=== PATIENT | male | born 1955 | race Caucasian/White ===

== ENCOUNTER 2016-06-25 00:52 | Inpatient (IN) | payer BC, MEDICARE, OTHER ==
[2016-06-25 02:12] VITALS: BMI 22.9
--- NOTE | 2016-06-25 02:28 | ED PDOC ---
Arrival/HPI - General Chief Complaint: Psychiatric Evaluation Time Seen by Provider: 06/25/16 01:53 Historian: Patient - History of Present Illness Narrative History of Present Illness (Text): 06/25/16 02:28 Eber Lo is a 61 year old male, whose past medical history includes bipolar disorder, depression, alcohol abuse, and substance abuse, who presents to the ED complaining of depression. Patient states he has been feeling depressed recently and expressing suicidal ideation. Patient states he began mixing different medication with alcohol yesterday morning. Patient homicidal ideation, denies any fever, chills, chest pain, shortness of breath, nausea, vomiting, diarrhea, urinary symptoms, back pain, neck pain, headache, dizziness , or any other complaints. Time/Duration: Other (yesterday) Symptom Onset: Gradual Symptom Course: Unchanged Activities at Onset: Rest, Light Context: Home Past Medical History - Provider Review Nursing Documentation Reviewed: Yes - Infectious Disease Hx of Infectious Diseases: None - Tetanus Immunization Tetanus Immunization: Unknown - Cardiac Hx Cardiac Disorders: No Hx Hypertension: No - Pulmonary Hx Chronic Obstructive Pulmonary Disease (COPD): Yes - Neurological Hx Neurological Disorder: No Hx Seizures: No - HEENT Hx HEENT Disorder: No - Renal Hx Renal Disorder: No - Endocrine/Metabolic Hx Endocrine Disorders: No - Hematological/Oncological Hx Blood Disorders: Yes Hx Cancer: Yes (liver) - Integumentary Hx Dermatological Disorder: No - Musculoskeletal/Rheumatological Hx Arthritis: Yes Hx Fractures: Yes Other/Comment: Claimed of multiple surgery mostly orthopedic. - Gastrointestinal Hx Gastrointestinal Disorders: Yes Hx Liver Failure: Yes (liver cancer) - Genitourinary/Gynecological Hx Genitourinary Disorders: No Hx Sexually Transmitted Diseases: No - Psychiatric Hx Depression: Yes Hx Substance Use: Yes (marijuana) - Past Surgical History Past Surgical History: Unable to Obtain - Surgical History Hx Appendectomy: Yes Hx Orthopedic Surgery: Yes (right knee) Other/Comment: nose/face/kidney stones - Anesthesia Hx Anesthesia: Yes Hx Anesthesia Reactions: No Hx Malignant Hyperthermia: No - Suicidal Assessment Feels Threatened In Home Enviroment: No Family/Social History - Physician Review Nursing Documentation Reviewed: Yes Family/Social History: No Known Family HX Smoking Status: Current Some Days Smoker Hx Alcohol Use: Yes (vodka/beer) Frequency of alcohol use: Daily Hx Substance Use: Yes (marijuana) Substance used: heroine Hx Substance Use Treatment: Yes ([facility] 29 days 27 years ago) Allergies/Home Meds Allergies/Adverse Reactions: Allergies banana Allergy (Verified 06/25/16 02:10) ANAPHYLAXIS tea tree Allergy (Verified 06/25/16 02:10) ANAPHYLAXIS Review of Systems - Physician Review All systems were reviewed & negative as marked: Yes - Review of Systems Constitutional: Normal. absent: Fevers Eyes: Normal ENT: Normal Respiratory: Normal. absent: SOB, Cough Cardiovascular: Normal. absent: Chest Pain Gastrointestinal: Normal. absent: Abdominal Pain, Diarrhea, Nausea, Vomiting Genitourinary Male: Normal. absent: Dysuria, Frequency, Hematuria, Urinary Output Changes Musculoskeletal: Normal. absent: Back Pain, Neck Pain Skin: Normal. absent: Rash Neurological: Normal. absent: Headache, Dizziness Endocrine: Normal Hemo/Lymphatic: Normal Psychiatric: Depression, Suicidal Ideation Physical Exam Vital Signs Reviewed: Yes Vital Signs Temp Pulse Resp BP Pulse Ox 06/25/16 06:18 98.7 F 102 H 16 105/65 95 06/25/16 02:11 98.2 F Temperature: Afebrile Blood Pressure: Normal Pulse: Regular Respiratory Rate: Normal Appearance: Positive for: Well-Appearing, Non-Toxic, Comfortable Pain Distress: None Mental Status: Positive for: Alert and Oriented X 3 - Systems Exam Head: Present: Atraumatic, Normocephalic Pupils: Present: PERRL Extroacular Muscles: Present: EOMI Conjunctiva: Present: Normal Mouth: Present: Moist Mucous Membranes Neck: Present: Normal Range of Motion Respiratory/Chest: Present: Clear to Auscultation, Good Air Exchange. No: Respiratory Distress, Accessory Muscle Use Cardiovascular: Present: Regular Rate and Rhythm, Normal S1, S2. No: Murmurs Abdomen: Present: Normal Bowel Sounds. No: Tenderness, Distention, Peritoneal Signs Back: Present: Normal Inspection Upper Extremity: Present: Normal Inspection. No: Cyanosis, Edema Lower Extremity: Present: Normal Inspection. No: Edema Neurological: Present: GCS=15, CN II-XII Intact, Speech Normal Skin: Present: Warm, Dry, Normal Color. No: Rashes Psychiatric: Present: Alert, Oriented x 3, Normal Insight, Normal Concentration Medical Decision Making ED Course and Treatment: 06/25/16 02:28 Impression: 61 year old male complaining of depression and suicidal ideation. Plan: -- EKG -- Chest X-ray -- Labs, alcohol level -- Urinalysis, urine drug screen -- Reassess and disposition Prior Visits: Notes and results from previous visits were reviewed. Progress Notes: Reviewed EKG, NSR at [address]-segment elevations or depressions, no T- wave inversions, normal intervals. 06/25/16 03:39 Reviewed radiology, Chest X-ray shows no active disease. Reviewed labs, alcohol level 116, tox screen positive for benzodiazepines and cannabinoids. Pt medically cleared for PES evaluation. 06/25/16 05:38 Pt seen and evaluated by PES screener. States pt can be admitted to [facility] under Dr. Howe's service for depression. Pt is agreeable with plan. - Lab Interpretations Lab Results: 06/25/16 02:40 06/25/16 02:40 Lab Results 06/25/16 03:50: Urine Color Yellow, Urine Appearance Clear, Urine pH 6.0, Ur Specific [place] 1.020, Urine Protein Negative, Urine Glucose (UA) Negative, Urine Ketones Negative, Urine Blood Negative, Urine Nitrate Negative, Urine Bilirubin Negative, Urine Urobilinogen 0.2, Ur Leukocyte Esterase Negative, Urine Opiates Screen Negative, Urine Methadone Screen Negative, Ur Barbiturates Screen Negative, Ur Phencyclidine Scrn Negative, Ur Amphetamines Screen Negative , U Benzodiazepines Scrn Positive H, U Oth Cocaine Metabols Negative, U Cannabinoids Screen Positive H 06/25/16 02:40: WBC 7.3, RBC 5.05, Hgb 16.1, Hct 46.3, MCV 91.7, MCH 31.9, MCHC 34.8, RDW 14.9 H, Plt Count 200, MPV 9.4, Gran % 51.8, Lymph % (Auto) 31.7, [place] % (Auto) 13.5 H, Eos % (Auto) 2.7, Baso % (Auto) 0.3, Gran # 3.78, Lymph # 2.3, [place] # 1.0 H, Eos # 0.2, Baso # 0.02, Sodium 140, Potassium 4.1, Chloride 105, Carbon Dioxide 23, Anion Gap 16, BUN 16, Creatinine 0.8, Est GFR ( Amer) > 60, Est GFR (Non-Af Amer) > 60, Random Glucose 91, Calcium 8.9, Total Bilirubin 0.6, AST 52, ALT 44, Alkaline Phosphatase 70, Total Protein 7.2, Albumin 3.9, Globulin 3.2, Albumin/Globulin Ratio 1.2, Salicylates < 1 L, Acetaminophen < 10.0 L, Alcohol, Quantitative 115 H I have reviewed the lab results: Yes - RAD Interpretation Radiology Orders: 06/25/16 02:26 CHEST PORTABLE [RAD] Stat Swimming Pool Cleaner: ED Physician - EKG Interpretation Interpreted by ED Physician: Yes Type: 12 lead EKG - Medication Orders Current Medication Orders: Acetaminophen (Tylenol 325mg Tab) 650 mg PO Q4 PRN PRN Reason: Pain Last Admin: 06/25/16 16:02 Dose: 650 MG MAR Pain/Vitals Document 06/25/16 16:02 CV (Rec: 06/25/16 16:04 CV [id number]) Pain Reassessment Is This A Pain ReAssessment? No Sleep Is patient sleeping during reassessment? No Presence of Pain Presence of Pain Yes Pain Scale Used Pain Scale Used Numeric Location Pain Location Body [employer]dn[employer] Description Dull Intensity 3 Aggravating Factors None Vitals Temperature (97.6 F-99.6 F) 97.6 F Temperature Source Oral Re-Assess: MAR Pain/Vitals Document 06/25/16 17:02 CV (Rec: 06/25/16 18:21 CV [id number]) Pain Reassessment Is This A Pain ReAssessment? Yes Sleep Is patient sleeping during reassessment? Yes Al Hydrox/Mg Hydrox/Simethicone (Maalox Plus 30 Ml) 30 ml PO DAILY PRN PRN Reason: Upset Stomach Divalproex Sodium (Depakote Dr (*Bid*)) 500 mg PO [facility] FRANCI PRN Reason: Protocol Last Admin: 06/25/16 22:05 Dose: 500 MG Behavioural Document 06/25/16 22:05 [facility] (Rec: 06/25/16 22:05 [id number] Maintenance Maintenance Dose Yes Famotidine (Pepcid) 40 mg PO HS [facility] Last Admin: 06/25/16 22:05 Dose: 40 MG Folic Acid (Folic Acid) 1 mg PO DAILY [facility] Last Admin: 06/25/16 12:49 Dose: 1 MG Lorazepam (Ativan) 2 mg PO TID PRN; Protocol PRN Reason: Alcohol Withdrawal Lorazepam (Ativan) 2 mg PO QID FRANCI PRN Reason: Protocol Last Admin: 06/25/16 22:05 Dose: 2 MG Behavioural Document 06/25/16 22:05 [facility] (Rec: 06/25/16 22:05 [id number] Maintenance Maintenance Dose Yes Magnesium Hydroxide (Milk Of Magnesia) 30 ml PO DAILY PRN PRN Reason: Constipation Multivitamins (Thera Tab) 1 tab PO DAILY [facility] Last Admin: 06/25/16 12:49 Dose: 1 TAB Quetiapine Fumarate (Seroquel) 100 mg PO HS [facility] PRN Reason: Protocol Last Admin: 06/25/16 22:05 Dose: 100 MG Behavioural Document 06/25/16 22:05 [facility] (Rec: 06/25/16 22:06 [id number] Maintenance Maintenance Dose Yes Thiamine HCl (Vitamin B1 Tab) 100 mg PO DAILY [facility] Last Admin: 06/25/16 12:49 Dose: 100 MG Trazodone HCl (Desyrel) 100 mg PO HS [facility] Last Admin: 06/25/16 22:05 Dose: 100 MG - Garryibe Statement The provider has reviewed the documentation as recorded by the Aleksandra Olmedo Provider Attestation: All medical record entries made by the Aleksandra were at my direction and personally dictated by me. I have reviewed the chart and agree that the record accurately reflects my personal performance of the history, physical exam, medical decision making, and the department course for this patient. I have also personally directed, reviewed, and agree with the discharge instructions and disposition. Disposition/Present on Arrival - Present on Arrival Any Indicators Present on Arrival: No History of DVT/PE: No History of Uncontrolled Diabetes: No Urinary Catheter: No History of Decub. Ulcer: No History Surgical Site Infection Following: None - Disposition Have Diagnosis and Disposition been Completed?: Yes Diagnosis: Depression Disposition: HOSPITALIZED Disposition Time: 06:00 Condition: FAIR
[2016-06-25 02:52] LABS: ADD MANUAL DIFF? NO
[2016-06-25 02:59] LABS: BASO # 0.02 K/mm3 (0.0-2.0); BASO % 0.3 % (0.0-3.0); EOS # 0.2 (0.0-0.7); EOS % 2.7 % (1.5-5.0); GRAN # 3.78 (1.4-6.5); GRAN % 51.8 % (50.0-68.0); HEMATOCRIT 46.3 % (42.0-52.0); LYMPH # 2.3 (1.2-3.4); LYMPH % 31.7 % (22.0-35.0); MEAN CELL VOLUME 91.7 fL (80.0-105.0); MEAN CORPUSCULAR HEMOGLOBIN 31.9 pg (25.0-35.0); MEAN CORPUSCULAR HGB CONC 34.8 g/dl (31.0-37.0); MEAN PLATELET VOLUME 9.4 fl (7.0-11.0); MONO % 13.5 % (1.0-6.0); PLATELET COUNT 200 10^3/uL (120.0-450.0); RED CELL DISTRIBUTION WIDTH 14.9 % (11.5-14.5); WHITE BLOOD COUNT 7.3 10^3/ul (4.5-11.0)
[2016-06-25 03:06] LABS: ALB/GLOB RATIO 1.2 (1.1-1.8); ALKALINE PHOSPHATASE 70 U/L (38-133); ALT/SGPT 44 U/L (7-56); AST/SGOT 52 U/L (15-59); BILIRUBIN,TOTAL 0.6 mg/dL (0.2-1.3); BLOOD UREA NITROGEN 16 mg/dL (7-21); CALCIUM 8.9 mg/dL (8.4-10.5); CARBON DIOXIDE 23 mmol/L (21-33); CHLORIDE 105 mmol/L (95-110); GFR AFRICAN-AMERICAN > 60; GLUCOSE,RANDOM 91 mg/dL (70-110); POTASSIUM 4.1 mmol/L (3.6-5.0); SODIUM 140 mmol/L (132-148); TOTAL PROTEIN 7.2 g/dL (5.8-8.3)
[2016-06-25 04:06] LABS: URINE BILIRUBIN NEGATIVE (NEGATIVE); URINE BLOOD NEGATIVE (NEGATIVE); URINE GLUCOSE (UA) NEGATIVE (NEGATIVE); URINE KETONE NEGATIVE (NEGATIVE); URINE LEUKOCYTE ESTERASE NEGATIVE Leu/uL (NEGATIVE); URINE PROTEIN NEGATIVE mg/dL (<30 mg/dL); URINE UROBILINOGEN 0.2 E.U./dL (<1 E.U./dL)
[2016-06-25 04:25] LABS: URINE APPEARANCE CLEAR (CLEAR); URINE COLOR YELLOW (YELLOW)
[2016-06-25 06:19] VITALS: O2SAT 95
[2016-06-25] MEDS ORDERED: Magnesium Hydroxide Susp 30 ml UD PO PRN (08:29)
[2016-06-25] MEDS ORDERED: Alum-Mag Hydrox-Simethicone Susp (30 mL) PO PRN (08:29)
--- NOTE | 2016-06-25 09:10 | RAD ---
HISTORY: pes COMPARISON: 09/25/2015 FINDINGS: LUNGS: No active pulmonary disease. PLEURA: No significant pleural effusion identified, no pneumothorax apparent. CARDIOVASCULAR: Normal. OSSEOUS STRUCTURES: No significant abnormalities. VISUALIZED UPPER ABDOMEN: Normal. OTHER FINDINGS: None. IMPRESSION: No active disease.
[2016-06-25] MEDS: Multivitamin Therapeutic Tab PO SCH (12:49)
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
[2016-06-25 18:35] LABS: CHOLESTEROL 159 mg/dL (130-200)
--- NOTE | 2016-06-25 19:02 | CARD ---
APPROVED REPORT EKG Measurement Heart [id number] <Conclusion> Normal sinus rhythm Normal ECG
[2016-06-25] MEDS: Divalproex 250 mg DR (BID formulation) PO SCH (22:05)
--- NOTE | 2016-06-26 06:02 | CON ---
DATE: 06/25/2016 CHIEF COMPLAINT: COPD, joint pain. HISTORY OF PRESENT ILLNESS: The patient is a 61-year-old male with past medical history of COPD, bipolar depression, alcohol abuse, substance abuse, came to the Emergency Room complaining about depression. The patient stated that he has been feeling depressed recently and expressing suicidal ideation. The patient states he began mixing a different medication with alcohol yesterday morning. The patient does not have homicidal ideation and denies any fever, chills, chest pain, shortness of breath, nausea, vomiting, or diarrhea. No urinary symptoms, no back pain, no neck pain. No headache, no dizziness. PAST MEDICAL HISTORY: COPD, history of liver cancer, arthritis, history of multiple fractures and orthopedic surgeries, depression, using marijuana, history of appendectomy, history of kidney stones. FAMILY HISTORY: Father and mother, noncontributory. HABITS: Current smoking; alcohol yes, vodka/beer; substance abuse, marijuana and heroin. [place] 29 days 27 years ago. ALLERGIES: THE PATIENT IS ALLERGIC TO BANANAS AND TEA TREE PER PATIENT. MEDICATIONS: List reviewed by me. REVIEW OF SYSTEMS: The patient is seen and examined at the bedside, sitting on the chair, looks comfortable. No nausea, vomiting, or diarrhea. No hematuria or hematochezia. No swelling of the leg. No chest pain, no palpitation, no headache, no dizziness, no fever, no chills. Complaining about just different joint pains. No coughing. PHYSICAL EXAMINATION: VITAL SIGNS: Temperature 97.6, pulse 102, blood pressure 105/65, respiratory rate 16. HEENT: Head normocephalic, atraumatic. Eyes: PERRLA. Extraocular muscles intact. Conjunctivae pink. Eyelids unremarkable. Nose patent. NECK: Supple. No carotid bruit, JVD or thyromegaly. CHEST: Bilaterally symmetrical. HEART: S1, S2 positive. LUNGS: Clear to auscultation. ABDOMEN: Soft. Bowel sounds present. No organomegaly. EXTREMITIES: No edema, no cyanosis. NEUROLOGIC: The patient is awake, alert, moving all 4 extremities. No focal deficit. LABORATORY DATA: White blood cells 7.6, hemoglobin 16.1, hematocrit 46.3, platelets 200. Sodium 140, potassium 4.1, BUN 15, creatinine 0.8. Urine is okay. Toxicology: Benzodiazepine positive, cannabinoid positive. Alcohol level high at 115. ASSESSMENT AND PLAN: The patient is a 61-year-old male with a positive drug screen with benzodiazepine and cannabinoids, history of ethanol abuse, history of chronic obstructive pulmonary disease, history of liver cancer as per the patient, different fractures, arthritis, depression and using marijuana, history of kidney stones. According to the patient, he was not feeling very well while using , Percocet, drinking 7 pints of vodka daily. "I had bad days and now I only have 11 well friends. I need to have rest. I am not able to sleep. I am here to get help." Psychiatrist is on the case. Appreciate psychiatric input and appreciate you to consult. We will follow up. Cristina Ellison MD cc: [id number] TT: 06/26/2016 06:01:50 Confirmation # [id number] Dictation # [id number]
[2016-06-26] MEDS: Multivitamin Therapeutic Tab PO SCH (08:11)
[2016-06-26 08:25] LABS: CHOLESTEROL 148 mg/dL (130-200)
[2016-06-26 08:47] LABS: FREE T4 1.03 ng/dL (0.78-2.19)
[2016-06-26 09:01] LABS: THYROID STIMULATING HORMONE 0.46 mIU/mL (0.46-4.68)
[2016-06-26] MEDS: Divalproex 250 mg DR (BID formulation) PO SCH ×2 (09:37→22:27)
[2016-06-26 10:07] VITALS: RESP 20
--- NOTE | 2016-06-26 13:24 | CT ---
PROCEDURE: CT Abdomen and Pelvis without intravenous contrast HISTORY: r/o stones COMPARISON: 11/07/2014 TECHNIQUE: Technique. Contrast Dose: Radiation dose: Total exam DLP = 775 mGy-cm. This CT exam was performed using one or more of the following dose reduction techniques: Automated exposure control, adjustment of the mA and/or kV according to patient size, and/or use of iterative reconstruction technique. FINDINGS: LOWER THORAX: Unremarkable. LIVER: Unremarkable. No gross lesion or ductal dilatation. GALLBLADDER AND BILE DUCTS: Unremarkable. PANCREAS: Unremarkable. No gross lesion or ductal dilatation. SPLEEN: Unremarkable. ADRENALS: Unremarkable. No mass. KIDNEYS AND URETERS: There is a right ureteral stent. There is a moderate amount of hydronephrosis. There are no stones seen along side the stent. VASCULATURE: Unremarkable. No aortic aneurysm. BOWEL: Unremarkable. No obstruction. No gross mural thickening. APPENDIX: Unremarkable. Normal appendix. PERITONEUM: Unremarkable. No free fluid. No free air. LYMPH NODES: Unremarkable. No enlarged lymph nodes. BLADDER: Unremarkable. REPRODUCTIVE: Unremarkable. BONES: No acute fracture. OTHER FINDINGS: None. IMPRESSION: Right-sided ureteral stent. Moderate chronic right-sided hydronephrosis. No evidence of stones
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
--- NOTE | 2016-06-26 18:42 | US ---
PROCEDURE: Urinary bladder ultrasound HISTORY: retention COMPARISON: June 26, 2016. CT abdomen and pelvis. TECHNIQUE: Standard protocol for this study/examination. FINDINGS: Urinary bladder assessment: Prevoid volume: 109.8 ml Postvoid residual: 6.4 ml Intrinsic, mural, perivesical abnormalities: Pigtail catheter core LV in the bladder in satisfactory position confirming findings on recent CT scan. Ureteral jets: Only documented left side. Right ureteral jet not visualized. IMPRESSION: Confirmation of satisfactory position of the distal aspect of the stent catheter in the urinary bladder. Additional information provided above.
--- NOTE | 2016-06-26 19:52 | CON ---
DATE: 06/26/2016 The patient complains of frequency, straining to void. He is currently on the psychiatric appiah, admi tted for history of depression. He told me that he was operated on for kidney stones at [facility] several years ago. He currently has no flank pain, no fever. He was admitted through the ER complaining of the history of depression, alcohol abuse. PAST MEDICAL HISTORY: Significant for, according to his chart, a history of liver cancer. He has hwang d orthopedic surgeries. SOCIAL HISTORY: He uses marijuana. PAST SURGICAL HISTORY: He has had an appendectomy, right knee. He has had surgery on his nose, and surgery for kidney stones. ALLERGIES: HE HAS AN ALLERGY TO BANANAS AND TEA. FAMILY HISTORY: Noncontributory. REVIEW OF SYSTEMS: Currently no symptoms referable to the head, eyes, ears, nose or throat. No card iac or respiratory symptoms. No gastrointestinal symptoms. Psychiatric symptoms: History of depres timoteo. VITAL SIGNS: Show him to be afebrile, pulse is 96, blood pressure 106/63, respirations 20. The patient is well-oriented x 3. Normocephalic. Sclerae clear, conjunctivae not injected. ABDOMEN: Soft, no rebound, no guarding. He was sitting in a chair. I did not do a rectal exam on him. I examined him while he was in the ch air. His lab work shows white count 7300, creatinine of 0.8. His urine was completely normal on admission . Serologies: RPR is nonreactive. His urine was positive for Cannabis and benzodiazepines. He als o had an alcohol level of 115. A CAT scan was ordered by me, along with a bladder ultrasound, PSA. I was also putting the patient o n Flomax. His bladder ultrasound showed a postvoid residual of only 6 mL. His CAT scan that was don e showed the patient has a right pigtail stent. I do not know how long this has been in. It may hav e been in there from his past surgeries done 3 years ago. I will follow up with him on this. If in fact, this is a stent from his surgery, he will be encouraged to go back to the doctor who did his 2 surgeries on him for followup and removal of this stent. There is no mention of the stent being frac tured. His PSA was only 1.3. He was put on Flomax, and the nurse was told not to give the Flomax if his blood pressure systolic is less than 100. Will discuss with the patient if his stent being present and the need to follow up with the doctor wh o operated on him This may be the reason that he is having the urinary symptoms that he is having. Scott Garcia MD cc: [id number] TT: 06/26/2016 19:51:40 Confirmation # [id number] Dictation # [id number]
--- NOTE | 2016-06-27 03:32 | PN ---
DATE: 06/26/2016 SUBJECTIVE: The patient is seen and examined on the bedside, looks comfortable. No nausea, vomiting, or diarrhea. No hematuria or hematochezia. No swelling of the leg. No chest pain. No palpitation. No headache. No dizziness. PHYSICAL EXAMINATION: VITAL SIGNS: Temperature 98.3, pulse 96, blood pressure 106/80, respiratory rate 20. HEENT: Head normocephalic and atraumatic. Eyes, PERRLA. Extraocular muscles intact. Conjunctivae pink. Eyelids unremarkable. Nose patent. NECK: Supple. No carotid bruit, JVD, or thyromegaly. CHEST: Bilaterally symmetrical. HEART: S1, S2 positive. LUNGS: Clear to auscultation. ABDOMEN: Soft. Bowel sounds present. No organomegaly. EXTREMITIES: No edema. No cyanosis. NEUROLOGIC: The patient is awake, alert, moving all 4 extremities. No focal deficits. MEDICATIONS: Ativan, Depakote, trazodone, Flomax, folic acid, MiraLax, Milk-of- Magnesia, Pepcid, Seroquel, multivitamins, Tylenol, vitamin B1. LABORATORY DATA: White blood cells 7.3, hemoglobin 16.1, hematocrit 46.3, platelets 200. ASSESSMENT AND PLAN: The patient is a 61-year-old male with benzodiazepine positive, ethanol abuse, alcohol level is 115. Seen by Dr. Garcia, urologist. The patient has history of kidney stones, as per the patient, was in [facility] According to the patient, he is complaining of frequency and straining to void. According to the patient, he has history of liver cancer. Had orthopedic surgeries. CAT scan, ultrasound, and PSA are ordered by Dr. Garcia. He has put the patient on Flomax. His bladder ultrasound showed a postvoid residual of 6 mL. His CAT scan that was done showed the patient has right pigtail stent. We do not know how long he has this stent. It may have been in there for at least, surgery was done 3 years ago. The patient has history of psych problems. Psychiatrist is on the case. PSA is 1.3. He was put on Flomax by dr reynoso. Gastrointestinal and deep venous thrombosis prophylaxis. Repeat labs. We will follow up. Cristina Ellison MD cc: [id number] TT: 06/27/2016 03:31:51 Confirmation # [id number] Dictation # [id number] MTDD
[2016-06-27] MEDS: Multivitamin Therapeutic Tab PO SCH (08:17)
[2016-06-27] MEDS: Divalproex 250 mg DR (BID formulation) PO SCH ×2 (09:58→21:38)
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
--- NOTE | 2016-06-28 05:54 | PN ---
DATE: 06/27/2016 SUBJECTIVE: The patient is 61-year-old male. The patient is seen and examined on the bedside, looks comfortable, sitting on the wheelchair. Feeling better. No nausea, vomiting, or diarrhea, no hematuria or hematochezia. No swelling of the leg. No chest pain, no palpitation, no headache, no dizziness, no fever, no chills. PHYSICAL EXAMINATION: VITAL SIGNS: Temperature 98, pulse 99, blood pressure 117/ 80 , respiratory rate is 20. HEENT: Head normocephalic, atraumatic. Eyes: PERRLA. Extraocular movements intact. Conjunctivae pink. Eyelids unremarkable. Nose patent. Mucous membranes moist. NECK: Supple. No carotid bruit, JVD, or thyromegaly. CHEST: Bilaterally symmetrical. HEART: S1, S2 positive. LUNGS: Clear to auscultation. ABDOMEN: Soft. Bowel sounds present. No organomegaly. EXTREMITIES: No edema. No cyanosis. NEUROLOGIC: The patient is awake, alert, moving all 4 extremities. No focal deficits. MEDICATIONS: Ativan, Depakote, trazodone, Flomax, folic acid, Milk of Magnesia , Pepcid, Seroquel, Tylenol, B1. LABORATORY DATA: We do not have recent labs today, but I reviewed old labs. ASSESSMENT AND PLAN: The patient is a 61-year-old male with multiple surgeries on the knees, history of asthma, history of benign prostatic hypertrophy, complaining of difficulty of urination, history of ureteral stent, history of hydronephrosis seen by Dr. Garcia last admission. Now came in the psych department. According to him, he is feeling better. Psychiatrist is on the case. Dr. Amelia Howe is taking care of this patient, The patient went for CAT scan of abdomen and pelvis, showed a right-sided ureteral stent, chronic right-sided hydronephrosis and no evidence of stone. Went for a bladder ultrasound and it showed that satisfactory position of the distal aspect of the stent, catheter in the urinary bladder. Seen by Dr. Garcia is appreciated. Gastrointestinal and deep venous thrombosis prophylaxis. Repeat labs and will follow up. Cristina Ellison MD cc: [id number] TT: 06/28/2016 03:11:08 Confirmation # [id number] Dictation # [id number] ladi 06/28/2016 04:53:57 [email or web address]
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
[2016-06-28] MEDS: Divalproex 250 mg DR (BID formulation) PO SCH ×2 (09:42→21:08)
[2016-06-28] MEDS: Multivitamin Therapeutic Tab PO SCH (09:43)
--- NOTE | 2016-06-28 19:12 | PN ---
DATE: 06/28/2016 The patient was seen along with Lakeshia Gonzalez. The patient was told that he has a stent that was wenceslao melo by another urologist when he had some type of kidney surgery at [facility] years ago. He was told to follow up with that urologist and did not. The stent, I believe, is cau sing most of his symptoms. He was told. His knows the name of the doctor that he saw to follow up with that doctor to arrange for removal of the stent. His urine culture was no growth. His PSA was 1.3 and the patient said he will, when the [facility], have his call and make a n appointment for him to see the urologist who took care of him at [facility] to see him about removing the stent that he had placed. Scott Garcia MD cc: [id number] TT: 06/28/2016 19:11:32 Confirmation # [id number] Dictation # [id number] sn
--- NOTE | 2016-06-29 05:22 | PN ---
DATE: 06/29/2016 The patient is a 61-year-old male. SUBJECTIVE: The patient seen and examined on the bedside. Looks comfortable, complaining about knee pain. No nausea, vomiting, or diarrhea. No hematuria or hematochezia. No swelling of the leg. No chest pain. No palpitation. No headache. No dizziness. No fever. No chills. PHYSICAL EXAMINATION: VITAL SIGNS: Temperature 97.3, pulse 94, blood pressure 112/72, respiratory rate 20. HEENT: Head normocephalic, atraumatic. Eyes: PERRLA. Extraocular muscles intact. Conjunctivae pink. Eyelids unremarkable. Nose patent. Mucous membranes moist. NECK: Supple. No carotid bruit, JVD, or thyromegaly. CHEST: Bilaterally symmetrical. HEART: S1, S2 positive. LUNGS: Clear to auscultation. ABDOMEN: Soft. Bowel sounds present. No organomegaly. EXTREMITIES: No edema. No cyanosis. NEUROLOGIC: The patient is awake, alert, moving all 4 extremities. No focal deficits. MEDICATIONS: Ativan, Depakote, trazodone, Flomax, folic acid, Lopressor, Maalox , Milk of Magnesia, Pepcid, Seroquel, multivitamin, Tylenol, thiamine. LABORATORY DATA: White blood cells 7.3, hemoglobin 15.1, hematocrit is 46.3, platelets 200. HDl noted . TSH 0.46. ASSESSMENT AND PLAN: The patient is a 61-year-old male with history of multiple surgeries on the knees, asthma, benign prostatic hypertrophy, but PSA is within normal limits. ureteral stent, cold hydronephrosis. Length of time discussion done with the patient. Ureteral stent was put in 3 years ago at [facility]. The patient's knows the name of the urologist as per Dr. Garcia. Dr. Garcia wants the patient's urologist to remove the stent. because of the problem, according to patient's , and she will call and do arrangement to remove that stent as outpatient. Cristina Ellison MD cc: [id number] TT: 06/29/2016 05:22:01 Confirmation # [id number] Dictation # [id number] tn MTDD
[2016-06-29 07:28] VITALS: BP 104/61; PULSE 95; TEMP 98.3
[2016-06-29] MEDS: Multivitamin Therapeutic Tab PO SCH (08:02)
[2016-06-29] MEDS: Divalproex 250 mg DR (BID formulation) PO SCH (10:00)
--- NOTE | 2016-06-29 10:48 | PN ---
DATE: 06/29/2016 The patient again was told to make sure he follows up with the urologist at [facility] who had done his prior procedure 3 years ago. The patient did not have any open procedure on his k idneys. Inspection of his abdomen shows no evidence of that. He had some type of endoscopic procedu re, either a ureteroscopy with laser or an ESWL, I imagine where a stent was placed. He understands that he has to go back and see that urologist for removal of the stent which has been in for over 3 y ears. He spoke to his , who has the urologist's name and they will make an appointment follow up . Scott Garcia MD cc: [id number] TT: 06/29/2016 10:47:15 Confirmation # [id number] Dictation # [id number] en
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
--- NOTE | 2016-06-30 00:46 | PN ---
DATE: 06/29/2016 SUBJECTIVE: The patient seen and examined on the bedside early in the morning and looks comfortable. No nausea, vomiting or diarrhea. No hematuria or hematochezia. No headache and no chest pain or palpitation. No fever and no chills. PHYSICAL EXAMINATION: VITAL SIGNS: Temperature 98.3, pulse 95, blood pressure 104/51 and respiratory rate 20. HEENT: Head normocephalic and atraumatic. Eyes: PERRLA. Extraocular muscles intact. Conjunctivae pink. Eyelids unremarkable. Nose patent. Mucous membranes moist. NECK: Supple. No carotid bruit. No JVD or thyromegaly. CHEST: Bilaterally symmetrical. HEART: S1, S2 positive. LUNGS: Clear to auscultation. ABDOMEN: Soft. Bowel sounds present. No organomegaly. EXTREMITIES: No edema and no cyanosis. NEUROLOGIC: The patient is awake, alert and moving all 4 extremities. No focal deficits. MEDICATIONS: Ativan, Depakote, trazodone, Flomax, folic acid, Lopressor, Maalox , milk of magnesia, Pepcid, Seroquel, multivitamin, Tylenol and thiamine. LABORATORY DATA: We do not have recent labs today, but I reviewed old labs. ASSESSMENT AND PLAN: The patient is a 61-year-old male with a history of ureteral stent which was placed over 3 years in Now we will consult with Dr. Garcia and according to him, the patient should go back to his urologist. Dr. Garcia spoke to the patient's who had the urologist's name and they will make an appointment as a followup. The patient was educated and needs a follow up with the urologist. History of multiple surgeries on the knees, asthma, benign prostatic hypertrophy, history of old hydronephrosis, history of depression and history of substance abuse. Psychiatrist is on the case and Dr. Garcia saw the patient. The patient discharged home today. Follow up with primary care physician, the urologist and psychiatrist. Prescription of medicines given by and will followup in my absence, in Dr. Garcia's office and psychiatrist's office. Cristina Ellison MD cc: [id number] TT: 06/30/2016 00:45:35 Confirmation # [id number] Dictation # [id number] sn MTDD
== END 2016-06-29 15:25 | disposition home or self-care (01) | DRG 885 ==
LOC: ED 00:52 → ERH 05:37 → PSYC 07:53
PROVIDERS: ADMIT Psychiatry & Neurology Psychiatry; ATTEND Psychiatry & Neurology Psychiatry
DX: F31.60 Bipolar disorder, current episode mixed, unspecified (principal); F13.20 Sedative, hypnotic or anxiolytic dependence, uncomplicated; F10.239 Alcohol dependence with withdrawal, unspecified; N13.30 Unspecified hydronephrosis; J44.9 Chronic obstructive pulmonary disease, unspecified; J45.909 Unspecified asthma, uncomplicated; F12.90 Cannabis use, unspecified, uncomplicated; M19.90 Unspecified osteoarthritis, unspecified site; Y90.5 Blood alcohol level of 100-119 mg/100 ml; N40.1 Benign prostatic hyperplasia with lower urinary tract symptoms; R33.8 Other retention of urine; Z85.05 Personal history of malignant neoplasm of liver

== ENCOUNTER 2016-07-06 00:26 | Inpatient (IN) | payer MEDICARE, OTHER ==
[2016-07-06 00:26] VITALS: BMI 22.9
[2016-07-06 01:19] LABS: ADD MANUAL DIFF? NO
--- NOTE | 2016-07-06 01:22 | ED PDOC ---
Arrival/HPI - General Chief Complaint: Psychiatric Evaluation Time Seen by Provider: 07/06/16 00:52 Historian: Patient - History of Present Illness Narrative History of Present Illness (Text): 07/06/16 01:20 Eber Lo is a 61 year old male, with a history of bipolar disorder, depression, alcohol/substance abuse, presents to the emergency department complaining of depression. Patient also complains of suicidal and homicidal ideation without a plan. Admits to drinking alcohol earlier tonight. Patient was recently admitted to [facility] for similar symptoms and was discharged on 06/29/16 after he felt better. Denies any somatic complaints. Time/Duration: 1-3 hours Symptom Onset: Gradual Symptom Course: Unchanged Severity Level: Mild Activities at Onset: Light Context: Home Past Medical History - Provider Review Nursing Documentation Reviewed: Yes - Infectious Disease Hx of Infectious Diseases: None - Tetanus Immunization Tetanus Immunization: Unknown - Cardiac Hx Cardiac Disorders: No Hx Hypertension: No - Pulmonary Hx Chronic Obstructive Pulmonary Disease (COPD): Yes - Neurological Hx Neurological Disorder: No Hx Seizures: No - HEENT Hx HEENT Disorder: No - Renal Hx Renal Disorder: No - Endocrine/Metabolic Hx Endocrine Disorders: No - Hematological/Oncological Hx Blood Disorders: Yes Hx Cancer: Yes (liver) - Integumentary Hx Dermatological Disorder: No - Musculoskeletal/Rheumatological Hx Arthritis: Yes Hx Fractures: Yes Other/Comment: Claimed of multiple surgery mostly orthopedic. - Gastrointestinal Hx Gastrointestinal Disorders: Yes Hx Liver Failure: Yes (liver cancer) - Genitourinary/Gynecological Hx Genitourinary Disorders: No Hx Sexually Transmitted Diseases: No - Psychiatric Hx Depression: Yes Hx Substance Use: Yes (marijuana) - Past Surgical History Past Surgical History: Unable to Obtain - Surgical History Hx Appendectomy: Yes Hx Orthopedic Surgery: Yes (right knee) Other/Comment: nose/face/kidney stones - Anesthesia Hx Anesthesia: Yes Hx Anesthesia Reactions: No Hx Malignant Hyperthermia: No - Suicidal Assessment Feels Threatened In Home Enviroment: No Family/Social History - Physician Review Nursing Documentation Reviewed: Yes Family/Social History: No Known Family HX Smoking Status: Current Some Days Smoker Hx Alcohol Use: Yes (vodka/beer) Hx Substance Use: Yes (marijuana) Substance used: heroine Hx Substance Use Treatment: Yes ([facility] 29 days 27 years ago) Allergies/Home Meds Allergies/Adverse Reactions: Allergies banana Allergy (Verified 06/25/16 02:10) ANAPHYLAXIS tea tree Allergy (Verified 06/25/16 02:10) ANAPHYLAXIS Review of Systems - Physician Review All systems were reviewed & negative as marked: Yes - Review of Systems Constitutional: Normal. absent: Fatigue, Fevers Respiratory: Normal. absent: SOB, Cough Cardiovascular: Normal. absent: Chest Pain Gastrointestinal: Normal. absent: Abdominal Pain, Diarrhea, Nausea, Vomiting Genitourinary Male: Normal Neurological: Normal. absent: Headache, Dizziness Psychiatric: Depression, Suicidal Ideation Physical Exam Vital Signs Reviewed: Yes Vital Signs Temp Pulse Resp BP Pulse Ox 07/06/16 07:34 90 16 112/76 95 07/06/16 03:53 98 F 80 20 138/78 97 07/06/16 00:34 98.1 F 92 H 18 122/80 98 Temperature: Afebrile Blood Pressure: Normal Pulse: Regular Respiratory Rate: Normal Appearance: Positive for: Well-Appearing, Non-Toxic, Comfortable Pain Distress: None Mental Status: Positive for: Alert and Oriented X 3 - Systems Exam Head: Present: Atraumatic, Normocephalic Pupils: Present: PERRL Conjunctiva: Present: Normal Respiratory/Chest: Present: Clear to Auscultation, Good Air Exchange. No: Respiratory Distress, Accessory Muscle Use Cardiovascular: Present: Regular Rate and Rhythm, Normal S1, S2. No: Murmurs Abdomen: Present: Normal Bowel Sounds. No: Tenderness, Distention, Peritoneal Signs Upper Extremity: Present: Normal Inspection. No: Cyanosis, Edema Lower Extremity: Present: Normal Inspection. No: Edema Neurological: Present: GCS=15, CN II-XII Intact, Speech Normal, Motor Func Grossly Intact, Normal Sensory Function Skin: Present: Warm, Dry, Normal Color. No: Rashes Psychiatric: Present: Alert, Oriented x 3, Depressed Mood, Suicidal Ideation, Homicidal Ideation Medical Decision Making ED Course and Treatment: 07/06/16 01:30 Impression: A 61 year old male who presents to the emergency department complaining of depression, suicidal and homicidal ideation. Plan: -- EKG -- Labs -- Drug screen -- Alcohol level -- CXR -- Urinalysis Progress Notes: 07/06/16 02:15 EKG reviewed by me: NSR @ 88 bpm. Cannot rule out Anterior infarct, age undetermined. - Lab Interpretations Lab Results: 07/06/16 01:10 07/06/16 01:10 Lab Results 07/06/16 02:01: Urine Color Yellow, Urine Appearance Clear, Urine pH 7.0, Ur Specific [place] 1.020, Urine Protein Trace H, Urine Glucose (UA) Negative, Urine Ketones Negative, Urine Blood Negative, Urine Nitrate Negative, Urine Bilirubin Negative, Urine Urobilinogen 1.0 H, Ur Leukocyte Esterase Negative, Urine RBC 0 - 2, Urine WBC 0 - 2, Ur Epithelial Cells 0 - 2, Urine Opiates Screen Negative, Urine Methadone Screen Negative, Ur Barbiturates Screen Negative, Ur Phencyclidine Scrn Negative, Ur Amphetamines Screen Negative, U Benzodiazepines Scrn Positive H, U Oth Cocaine Metabols Negative, U Cannabinoids Screen Positive H 07/06/16 01:10: WBC 6.3, RBC 4.82, Hgb 15.1, Hct 43.7, MCV 90.7, MCH 31.3, MCHC 34.6, RDW 14.0, Plt Count 276, MPV 9.1, Gran % 50.2, Lymph % (Auto) 32.5, [place] % (Auto) 12.8 H, Eos % (Auto) 4.0, Baso % (Auto) 0.5, Gran # 3.15, Lymph # 2.0, [place] # 0.8 H, Eos # 0.3, Baso # 0.03, Sodium 145, Potassium 4.5, Chloride 110, Carbon Dioxide 25, Anion Gap 15, BUN 19, Creatinine 1.2, Est GFR ( Amer) > 60, Est GFR (Non-Af Amer) > 60, Random Glucose 96, Calcium 8.6, Total Bilirubin 0.4, AST 56, ALT 50, Alkaline Phosphatase 89, Total Protein 7.5, Albumin 4.0, Globulin 3.5, Albumin/Globulin Ratio 1.1, Salicylates < 1 L, Acetaminophen < 10.0 L, Alcohol, Quantitative 99 H I have reviewed the lab results: Yes - RAD Interpretation Radiology Orders: 07/06/16 00:53 CHEST PORTABLE [RAD] Stat Pattern Filer: ED Physician - EKG Interpretation Interpreted by ED Physician: Yes Type: 12 lead EKG - Transfer of Care Patient signed out to Dr:: nam awaiting pes re eval - Scribe Statement The provider has reviewed the documentation as recorded by the Scribe Jayson Muthuraman Provider Attestation: All medical record entries made by the Aleksandra were at my direction and personally dictated by me. I have reviewed the chart and agree that the record accurately reflects my personal performance of the history, physical exam, medical decision making, and the department course for this patient. I have also personally directed, reviewed, and agree with the discharge instructions and disposition. Disposition/Present on Arrival - Present on Arrival Any Indicators Present on Arrival: No History of DVT/PE: No History of Uncontrolled Diabetes: No Urinary Catheter: No History of Decub. Ulcer: No History Surgical Site Infection Following: None - Disposition Have Diagnosis and Disposition been Completed?: Yes Diagnosis: Suicidal ideation Disposition Time: 07:00 Condition: GOOD
[2016-07-06 01:28] LABS: BASO # 0.03 K/mm3 (0.0-2.0); BASO % 0.5 % (0.0-3.0); EOS # 0.3 (0.0-0.7); GRAN # 3.15 (1.4-6.5); GRAN % 50.2 % (50.0-68.0); HEMATOCRIT 43.7 % (42.0-52.0); LYMPH % 32.5 % (22.0-35.0); MEAN CELL VOLUME 90.7 fL (80.0-105.0); MEAN CORPUSCULAR HEMOGLOBIN 31.3 pg (25.0-35.0); MEAN CORPUSCULAR HGB CONC 34.6 g/dl (31.0-37.0); MEAN PLATELET VOLUME 9.1 fl (7.0-11.0); MONO # 0.8 (0.1-0.6); MONO % 12.8 % (1.0-6.0); PLATELET COUNT 276 10^3/uL (120.0-450.0); WHITE BLOOD COUNT 6.3 10^3/ul (4.5-11.0)
[2016-07-06 01:33] LABS: ALB/GLOB RATIO 1.1 (1.1-1.8); ALKALINE PHOSPHATASE 89 U/L (38-133); ALT/SGPT 50 U/L (7-56); AST/SGOT 56 U/L (15-59); BILIRUBIN,TOTAL 0.4 mg/dL (0.2-1.3); BLOOD UREA NITROGEN 19 mg/dL (7-21); CALCIUM 8.6 mg/dL (8.4-10.5); CARBON DIOXIDE 25 mmol/L (21-33); CHLORIDE 110 mmol/L (95-110); GFR AFRICAN-AMERICAN > 60; GLUCOSE,RANDOM 96 mg/dL (70-110); POTASSIUM 4.5 mmol/L (3.6-5.0); SODIUM 145 mmol/L (132-148); TOTAL PROTEIN 7.5 g/dL (5.8-8.3)
[2016-07-06 02:28] LABS: URINE BILIRUBIN NEGATIVE (NEGATIVE); URINE BLOOD NEGATIVE (NEGATIVE); URINE GLUCOSE (UA) NEGATIVE (NEGATIVE); URINE KETONE NEGATIVE (NEGATIVE); URINE LEUKOCYTE ESTERASE NEGATIVE Leu/uL (NEGATIVE); URINE PROTEIN TRACE mg/dL (<30 mg/dL)
[2016-07-06 02:31] LABS: URINE APPEARANCE CLEAR (CLEAR); URINE COLOR YELLOW (YELLOW)
[2016-07-06 02:47] LABS: URINE EPITHELIAL CELLS 0 - 2 /hpf (0-5); URINE RBC 0 - 2 /hpf (0-2); URINE WBC 0 - 2 /hpf (0-6)
--- NOTE | 2016-07-06 07:53 | ED PDOC ---
Physical Exam Vital Signs Reviewed: Yes Vital Signs Temp Pulse Resp BP Pulse Ox 07/06/16 09:27 85 16 133/81 96 07/06/16 07:34 90 16 112/76 95 07/06/16 03:53 98 F 80 20 138/78 97 07/06/16 00:34 98.1 F 92 H 18 122/80 98 Temperature: Afebrile Blood Pressure: Normal Pulse: Tachycardic Respiratory Rate: Normal Medical Decision Making ED Course and Treatment: 07/06/16 07:52 Patient signed out to me by Dr. Erickson. Pending PES evaluation. Patient presented with depression. 07/06/16 09:40 Case was discussed with Dr. Wilder who will admit patient to her service. - Lab Interpretations Lab Results: 07/06/16 01:10 07/06/16 01:10 Lab Results 07/06/16 02:01: Urine Color Yellow, Urine Appearance Clear, Urine pH 7.0, Ur Specific [place] 1.020, Urine Protein Trace H, Urine Glucose (UA) Negative, Urine Ketones Negative, Urine Blood Negative, Urine Nitrate Negative, Urine Bilirubin Negative, Urine Urobilinogen 1.0 H, Ur Leukocyte Esterase Negative, Urine RBC 0 - 2, Urine WBC 0 - 2, Ur Epithelial Cells 0 - 2, Urine Opiates Screen Negative, Urine Methadone Screen Negative, Ur Barbiturates Screen Negative, Ur Phencyclidine Scrn Negative, Ur Amphetamines Screen Negative, U Benzodiazepines Scrn Positive H, U Oth Cocaine Metabols Negative, U Cannabinoids Screen Positive H 07/06/16 01:10: WBC 6.3, RBC 4.82, Hgb 15.1, Hct 43.7, MCV 90.7, MCH 31.3, MCHC 34.6, RDW 14.0, Plt Count 276, MPV 9.1, Gran % 50.2, Lymph % (Auto) 32.5, [place] % (Auto) 12.8 H, Eos % (Auto) 4.0, Baso % (Auto) 0.5, Gran # 3.15, Lymph # 2.0, [place] # 0.8 H, Eos # 0.3, Baso # 0.03, Sodium 145, Potassium 4.5, Chloride 110, Carbon Dioxide 25, Anion Gap 15, BUN 19, Creatinine 1.2, Est GFR ( Amer) > 60, Est GFR (Non-Af Amer) > 60, Random Glucose 96, Calcium 8.6, Total Bilirubin 0.4, AST 56, ALT 50, Alkaline Phosphatase 89, Total Protein 7.5, Albumin 4.0, Globulin 3.5, Albumin/Globulin Ratio 1.1, Salicylates < 1 L, Acetaminophen < 10.0 L, Alcohol, Quantitative 99 H I have reviewed the lab results: Yes Interpretation: Abnormal lab values (elevated alcohol level, +benzo +thc) - RAD Interpretation Radiology Orders: 07/06/16 00:53 CHEST PORTABLE [RAD] Stat - Scribe Statement The provider has reviewed the documentation as recorded by the Garryibe Odette Smith Provider Scribe Attestation: All medical record entries made by the Scribe were at my direction and personally dictated by me. I have reviewed the chart and agree that the record accurately reflects my personal performance of the history, physical exam, medical decision making, and the department course for this patient. I have also personally directed, reviewed, and agree with the discharge instructions and disposition. Disposition/Present on Arrival - Present on Arrival Any Indicators Present on Arrival: No History of DVT/PE: No History of Uncontrolled Diabetes: No Urinary Catheter: No History of Decub. Ulcer: No History Surgical Site Infection Following: None - Disposition Have Diagnosis and Disposition been Completed?: Yes Diagnosis: Suicidal ideation, Depression Disposition: HOSPITALIZED Disposition Time: 09:42 Patient Plan: Admission Patient Problems: Current Active Problems Problem Status Diagnosed Suicidal ideation Acute Condition: FAIR
--- NOTE | 2016-07-06 09:06 | RAD ---
HISTORY: pes COMPARISON: 06/25/2016 FINDINGS: LUNGS: No active pulmonary disease. PLEURA: No significant pleural effusion identified, no pneumothorax apparent. CARDIOVASCULAR: Normal. OSSEOUS STRUCTURES: No significant abnormalities. VISUALIZED UPPER ABDOMEN: Normal. OTHER FINDINGS: None. IMPRESSION: No active disease.
--- NOTE | 2016-07-06 11:33 | CARD ---
APPROVED REPORT EKG Measurement Heart [id number] <Conclusion> Normal sinus rhythm Normal ECG. No change
[2016-07-06 12:38] VITALS: O2SAT 99
[2016-07-06 14:22] LABS: CHOLESTEROL 158 mg/dL (130-200)
[2016-07-06 14:35] LABS: FREE T4 0.85 ng/dL (0.78-2.19)
[2016-07-06 14:49] LABS: THYROID STIMULATING HORMONE 1.24 mIU/mL (0.46-4.68)
[2016-07-06] MEDS: QUEtiapine 200 mg XR Tab PO SCH (21:23)
[2016-07-06] MEDS: Divalproex 500 mg ER (ONCE DAILY formulation) PO SCH (21:23)
--- NOTE | 2016-07-06 21:44 | CON ---
DATE: 07/06/2016 CHIEF COMPLAINT: High blood pressure, back pain. HISTORY OF PRESENT ILLNESS: The patient a 61-year-old male well known to me from previous admissions , history of bipolar depression, alcohol and substance abuse, history of back pain, history of nephro lithiasis, came to the Emergency Department complaining of depression. The patient also complaining of suicidal and homicidal ideation without a plan. Admits to drinking alcohol earlier tonight. The patient was recently discharged from [facility] due to similar reasons and after he left, he felt better. Denies any nausea, vomiting, or diarrhea. No fever, no chills. No headache, no di zziness. PAST MEDICAL HISTORY: COPD, history of liver cancer as per patient, arthritis, history of fracture, claimed of multiple surgeries, mostly orthopedic, depression, history using marijuana, history of isaak endectomy, right knee surgery, nose, face, kidney stones. FAMILY HISTORY: Father and mother noncontributory. HABITS: Current smoking, alcohol using vodka/beer, substance abuse, marijuana and heroin, [place] 29 days, 27 years ago. ALLERGIES: THE PATIENT IS ALLERGIC WITH BANANA AND TEA TREE. REVIEW OF SYSTEMS: The patient was seen and examined in the psych department, having his dinner. Wa s talking about his kidney stones. No fever, no chills. No hematuria or hematochezia. No headache, no dizziness, no dysuria. PHYSICAL EXAMINATION: VITAL SIGNS: Temperature 98, pulse 92, respiratory rate 18, blood pressure 122/80, pulse oximetry 98 . HEENT: Head normocephalic, atraumatic. Eyes: PERRLA. Extraocular muscles intact. Conjunctivae [place]. Eyelids unremarkable. Nose patent. Mucous membranes moist. NECK: Supple. No carotid bruit, JVD or thyromegaly. CHEST: Bilaterally symmetrical. HEART: S1, S2 positive. LUNGS: Clear to auscultation. ABDOMEN: Soft. Bowel sounds present. No organomegaly. EXTREMITIES: No edema, no cyanosis. NEUROLOGIC: The patient is awake, alert, moving all 4 extremities. No focal deficits. LABORATORY DATA: White blood cells 6.3, hemoglobin 15.1, hematocrit 43.7, platelets 276. Sodium 145 , potassium 4.5, BUN 19, creatinine 1.2, glucose 96. ASSESSMENT AND PLAN: The patient is a 61-year-old male admitted for suicidal ideation, has history o f chronic obstructive pulmonary disease, nephrolithiasis. As per patient, he has stent in his ureter . Arthritis. According to him, he had liver cancer, multiple surgeries on different joints, knees, nose and face, and he had surgery on his kidneys also, as per patient. Gastrointestinal and deep karely ous thrombosis prophylaxis. Repeat labs. We will follow up. Cristina Ellison MD cc: [id number] TT: 07/06/2016 21:43:08 Confirmation # [id number] Dictation # [id number] rn
[2016-07-07] MEDS: Divalproex 500 mg ER (ONCE DAILY formulation) PO SCH (21:23)
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
[2016-07-08] MEDS: QUEtiapine 200 mg XR Tab PO SCH ×2 (07:15→17:17)
--- NOTE | 2016-07-08 07:35 | PN ---
DATE: 07/08/2016 The patient is a 61-year-old male. The patient was seen and examined on the bedside, looks comfortable. No nausea, vomiting, diarrhea. No hematuria, no hematochezia. No swelling of the legs. No chest pain, no palpitation. PHYSICAL EXAMINATION: VITAL SIGNS: Temperature 97.6, pulse 73, blood pressure 108/74, respiratory rate 20. HEENT: Head normocephalic, atraumatic. Eyes: PERRLA. Extraocular muscles intact. Conjunctivae pink. Eyelids unremarkable. Nose patent. NECK: Supple. No carotid bruit, no JVD, no thyromegaly. CHEST: Bilaterally symmetrical. HEART: S1, S2 positive. LUNGS: Clear to auscultation. ABDOMEN: Soft. Bowel sounds positive. No organomegaly. EXTREMITIES: No edema, no cyanosis. NEUROLOGIC: The patient is awake, alert, moving all 4 extremities, no focal deficits. MEDICATIONS: Ativan, Depakote, Flomax, Lopressor, Pepcid, Seroquel, Tylenol. LABORATORIES: White blood cells 6.3, hemoglobin 15.1, hematocrit 43.7, platelets 276. Sodium 145, potassium 4.5, BUN 19, creatinine 1.2, glucose 96, triglycerides 129. ASSESSMENT AND PLAN: The patient is a 61-year-old male with history of multiple psych problems, multiple psych hospitalizations, history of liver cancer as per patient, arthritis, history of bone fractures, claims multiple surgeries, mostly orthopedic, depression, using marijuana, history of appendectomy, right knee surgery, nose, face, kidney stone surgeries. Came with depression, anxiety, homicidal and suicidal ideation, but no plan. Now feeling better. Psych is on the case. Gastrointestinal and deep venous thrombosis prophylaxis. Repeat labs. We will follow up. Cristina Ellison MD cc: [id number] TT: 07/08/2016 07:34:49 Confirmation # [id number] Dictation # [id number] [id number]
--- NOTE | 2016-07-08 08:45 | PCM.PYCHPN ---
Psychiatric Progress Note - Psychiatric Progress Note Patient seen today, length of contact: 25 MIN Patient Chief Complaint: "better" Problems Identified/Issues Discussed: I reviewed recent notes and met with patient in his room. Patient appears better groomed and speech is more coherent. He is alert and oriented to month, year location, circumstances. Patient's affect appears brighter and more reactive. He is generally calm and friendly during our interview. Patient reports that he is feeling better and denies any new concerns except for restless sleep last night. Denies symptoms of alcohol withdrawal and has been tolerating his current prescribed medications well. Thought processes is coherent and responses are relevant to questioning. He denies having any hallucinations and delusions were not elicited. There were no behavioral issues over the weekend. Diagnostic Results: Bipolar disorder with psychotic features Polysubstance abuse Medication Change: Yes (Added Sonata 5 mg HS on 07/08/16) Medical Record Reviewed: Yes (notes, reports, labs, vitals) Mental Status Examination - Cognitive Function Attention: WNL Concentration: Poor Association: Loose - Mood Mood: Depressed, Anxious - Affect Affect: Broad - Speech Speech: Appropriate - Formal Thought Process Formal Thought Process: No Impairment - Suicidal Ideation Suicidal Ideation: No - Homicidal Ideation Homicidal Ideation: No Goal/Treatment Plan - Goal/Treatment Plan Progress Toward Problem(s) and Goals/Treatment Plan: * group, milieu and supportive therapy * Appreciate f/u by Dr. Ellison on 07/06/16~plan to repeat labs and f/u * Depakote ER 1000 mg HS for mood control, VPA on 07/06/16=44 * Trazodone 200 mg HS for depression and off-label for insomnia * Seroquel XR 200 mg q5pm for mood control, impulse control and disorganization * Ativan 1 mg po AM HS to help with alcohol withdrawal and mood control. Taper as tolerated. * Added sonata 5 mg HS to help with insomnia * Vitals reviewed and noted below: Selected Entries 07/07/16 07/07/16 06:00 16:12 Temperature 97.6 F Pulse Rate 79 73 Respiratory 20 Rate Blood Pressure 104/66 108/74 ER LABS AND STUDIES NOTED BELOW 07/06/16 02:01: Urine Color Yellow, Urine Appearance Clear, Urine pH 7.0, Ur Specific [place] 1.020, Urine Protein Trace H, Urine Glucose (UA) Negative, Urine Ketones Negative, Urine Blood Negative, Urine Nitrate Negative, Urine Bilirubin Negative, Urine Urobilinogen 1.0 H, Ur Leukocyte Esterase Negative, Urine RBC 0 - 2, Urine WBC 0 - 2, Ur Epithelial Cells 0 - 2, Urine Opiates Screen Negative, Urine Methadone Screen Negative, Ur Barbiturates Screen Negative, Ur Phencyclidine Scrn Negative, Ur Amphetamines Screen Negative, U Benzodiazepines Scrn Positive H, U Oth Cocaine Metabols Negative, U Cannabinoids Screen Positive H 07/06/16 01:10: WBC 6.3, RBC 4.82, Hgb 15.1, Hct 43.7, MCV 90.7, MCH 31.3, MCHC 34.6, RDW 14.0, Plt Count 276, MPV 9.1, Gran % 50.2, Lymph % (Auto) 32.5, [place] % (Auto) 12.8 H, Eos % (Auto) 4.0, Baso % (Auto) 0.5, Gran # 3.15, Lymph # 2.0, [place] # 0.8 H, Eos # 0.3, Baso # 0.03, Sodium 145, Potassium 4.5, Chloride 110, Carbon Dioxide 25, Anion Gap 15, BUN 19, Creatinine 1.2, Est GFR ( Amer) > 60, Est GFR (Non-Af Amer) > 60, Random Glucose 96, Calcium 8.6, Total Bilirubin 0.4, AST 56, ALT 50, Alkaline Phosphatase 89, Total Protein 7.5, Albumin 4.0, Globulin 3.5, Albumin/Globulin Ratio 1.1, Salicylates < 1 L, Acetaminophen < 10.0 L, Alcohol, Quantitative 99 H 07/06/16 02:15 EKG NSR @ 88 bpm. Cannot rule out Anterior infarct, age undetermined.
[2016-07-08] MEDS ORDERED: Apap-Butalbital-Caffeine 325-50-40mg Tab PO SCH (13:00)
[2016-07-08] MEDS: Apap-Butalbital-Caffeine 325-50-40mg Tab PO PRN (17:19)
[2016-07-08] MEDS: Divalproex 500 mg ER (ONCE DAILY formulation) PO SCH (21:40)
[2016-07-09] MEDS: Apap-Butalbital-Caffeine 325-50-40mg Tab PO PRN ×5 (01:23→22:52)
--- NOTE | 2016-07-09 06:31 | PN ---
DATE: 07/08/2016 SUBJECTIVE: The patient was seen on his bed complaining about headache. According to him he has history of migraine, used to use Fioricet, requesting Fioricet. He had discussion done with the psychiatrist also. No nausea, vomiting, or diarrhea. No hematuria or hematochezia. No chest pain, no palpitation and no fever, no chills. PHYSICAL EXAMINATION: VITAL SIGNS: Temperature 98.1, pulse 73, blood pressure 111/73, and respiratory rate 18. HEENT: Head normocephalic, atraumatic. Eyes: PERRLA. Extraocular muscles intact. Conjunctivae pink. Eyelids are unremarkable. Nose patent. Mucous membranes moist. NECK: Supple. No carotid bruit, JVD or thyromegaly. CHEST: Bilaterally symmetrical. HEART: S1, S2 positive. LUNGS: Clear to auscultation. ABDOMEN: Soft. Bowel sounds present. No organomegaly. EXTREMITIES: No edema, no cyanosis. NEUROLOGIC: The patient is awake, alert, moving all 4 extremities. No focal deficits. MEDICATIONS: Ativan, Depakote, Fioricet, Flomax, Lopressor, Pepcid, Seroquel , Tylenol. LABORATORY DATA: We do not have recent labs today, but I reviewed old labs. ASSESSMENT AND PLAN: The patient is a 61-year-old male with benzodiazepines positive, cannabinoid positive, alcohol high level 99, history of migraine, has multiple psych admissions and psych hospitalization, history of liver cancer as per the patient, arthritis, history of multiple bone fractures and surgeries, depression, using marijuana. The patient had appendectomy, knee surgery, history of nephrolithiasis and had stent in the ureter, came with homicidal, suicidal ideation, but no plan. We will continue present treatment. Gastrointestinal and deep venous thrombosis prophylaxis. Psych is on the case. Gave Fioricet. We will follow up. Cristina Ellison MD cc: [id number] TT: 07/09/2016 03:21:37 Confirmation # [id number] Dictation # [id number] 07/09/2016 05:31:20 MANDY
--- NOTE | 2016-07-09 10:45 | PCM.PYCHPN ---
Psychiatric Progress Note - Psychiatric Progress Note Patient seen today, length of contact: 25 MIN Patient Chief Complaint: "better" Problems Identified/Issues Discussed: I reviewed recent notes and met with patient in his room and during treatment team meeting. Patient appears better groomed and speech is much more coherent. He is alert and oriented to month, year location, circumstances. Patient's affect appears brighter and more reactive. He is generally calm and friendly during our interview. He can be labile on the unit but this is improving and patient is redirectable. He is able to joke at times with staff and peers. Patient reports that he is feeling better and denies any new concerns. Denies symptoms of alcohol withdrawal and has been tolerating his current prescribed medications well. Agreeable to Ativan taper and increase in Sonata for restless sleep last night. Thought processes is fairly coherent and responses are relevant to questioning. He denies having any hallucinations and delusions were not elicited. There were no behavioral issues overnight. Diagnostic Results: Bipolar disorder with psychotic features Polysubstance abuse Medication Change: Yes (Sonata increased to 10 mg HS on 07/09/16, Ativan decreased) Medical Record Reviewed: Yes (notes, reports, labs, vitals) Mental Status Examination - Cognitive Function Attention: WNL Concentration: Poor Association: Loose - Mood Mood: Depressed, Anxious - Affect Affect: Broad - Speech Speech: Appropriate - Formal Thought Process Formal Thought Process: No Impairment - Suicidal Ideation Suicidal Ideation: No - Homicidal Ideation Homicidal Ideation: No Goal/Treatment Plan - Goal/Treatment Plan Need for Continued Stay: Remain at risks for inpatient hospitalization, Discharge may exacerbated symptoms Progress Toward Problem(s) and Goals/Treatment Plan: * group, milieu and supportive therapy * Appreciate f/u by Dr. Ellison on 07/06/16 & 07/08/16~plan to repeat labs and f/u * Depakote ER 1000 mg HS for mood control, VPA on 07/06/16=44 * Trazodone 200 mg HS for depression and off-label for insomnia * Seroquel XR 200 mg q5pm for mood control, impulse control and disorganization * c/w Ativan to help with alcohol withdrawal and mood control. Ativan 1 mg po AM HS decreased to Ativan 1 mg HS on 07/09/16, to taper as tolerated. * Sonata increased to 10 mg HS on 07/09/16 to help with insomnia * Vitals reviewed and noted below: Selected Entries 07/08/16 07/08/16 07/08/16 06:00 09:19 16:00 Temperature 98.1 F Pulse Rate 68 68 76 Respiratory 18 Rate Blood Pressure 98/53 L 110/60 07/08/16 17:17 Temperature Pulse Rate 73 Respiratory Rate Blood Pressure 111/73 ER LABS AND STUDIES NOTED BELOW 07/06/16 02:01: Urine Color Yellow, Urine Appearance Clear, Urine pH 7.0, Ur Specific [place] 1.020, Urine Protein Trace H, Urine Glucose (UA) Negative, Urine Ketones Negative, Urine Blood Negative, Urine Nitrate Negative, Urine Bilirubin Negative, Urine Urobilinogen 1.0 H, Ur Leukocyte Esterase Negative, Urine RBC 0 - 2, Urine WBC 0 - 2, Ur Epithelial Cells 0 - 2, Urine Opiates Screen Negative, Urine Methadone Screen Negative, Ur Barbiturates Screen Negative, Ur Phencyclidine Scrn Negative, Ur Amphetamines Screen Negative, U Benzodiazepines Scrn Positive H, U Oth Cocaine Metabols Negative, U Cannabinoids Screen Positive H 07/06/16 01:10: WBC 6.3, RBC 4.82, Hgb 15.1, Hct 43.7, MCV 90.7, MCH 31.3, MCHC 34.6, RDW 14.0, Plt Count 276, MPV 9.1, Gran % 50.2, Lymph % (Auto) 32.5, [place] % (Auto) 12.8 H, Eos % (Auto) 4.0, Baso % (Auto) 0.5, Gran # 3.15, Lymph # 2.0, [place] # 0.8 H, Eos # 0.3, Baso # 0.03, Sodium 145, Potassium 4.5, Chloride 110, Carbon Dioxide 25, Anion Gap 15, BUN 19, Creatinine 1.2, Est GFR ( Amer) > 60, Est GFR (Non-Af Amer) > 60, Random Glucose 96, Calcium 8.6, Total Bilirubin 0.4, AST 56, ALT 50, Alkaline Phosphatase 89, Total Protein 7.5, Albumin 4.0, Globulin 3.5, Albumin/Globulin Ratio 1.1, Salicylates < 1 L, Acetaminophen < 10.0 L, Alcohol, Quantitative 99 H 07/06/16 02:15 EKG NSR @ 88 bpm. Cannot rule out Anterior infarct, age undetermined.
[2016-07-09] MEDS: QUEtiapine 200 mg XR Tab PO SCH (17:23)
[2016-07-09] MEDS: Divalproex 500 mg ER (ONCE DAILY formulation) PO SCH (21:32)
--- NOTE | 2016-07-09 23:41 | PN ---
DATE: 07/09/2016 SUBJECTIVE: The patient was seen and examined on the bedside. According to him , his headache is getting better. No nausea, vomiting, diarrhea. No hematuria , hematochezia. No swelling of the leg. No chest pain or palpitation. No headache, no dizziness. PHYSICAL EXAMINATION: VITAL SIGNS: Temperature 97.5, pulse 81, blood pressure 108/69, respiratory rate 20. HEENT: Head normocephalic, atraumatic. Eyes PERRLA. Extraocular muscles intact. Conjunctivae pink. Eyelids unremarkable. Nose patent. Mucous membranes moist. NECK: Supple. No carotid bruit, JVD or thyromegaly. CHEST: Bilaterally symmetrical. HEART: S1, S2 positive. LUNGS: Clear to auscultation. ABDOMEN: Soft. Bowel sounds present. No organomegaly. EXTREMITIES: No edema, no cyanosis. NEUROLOGIC: The patient awake, alert, moving all 4 extremities. No focal deficits. MEDICATIONS: Ativan, Depakote, trazodone, Fioricet, Flomax, Lopressor, Pepcid, Seroquel, Tylenol. LABORATORY DATA: We do not have recent labs today, but I reviewed old labs. ASSESSMENT AND PLAN: The patient is a 61-year-old male with history of migraine , getting better with Fioricet; history of benzodiazepine positive, cannabinoid abuse, alcohol abuse, multiple psychiatric admissions, history of liver cancer as per patient, arthritis, multiple corrective surgeries, depression, history of appendectomy, history of nephrolithiasis, had stent in the ureter. Came with homicidal, suicidal ideation, admitted in psych department. Seen by Dr. Manjit Wilder today and according to patient, he is doing better. Bipolar with psychotic features. Polysubstance abuse. We will continue present treatment. Gastrointestinal, deep venous thrombosis prophylaxis. Repeat labs. We will follow up. Cristina Ellison MD cc: [id number] TT: 07/09/2016 23:40:02 Confirmation # [id number] Dictation # [id number] sn MTDD
[2016-07-10] MEDS: Apap-Butalbital-Caffeine 325-50-40mg Tab PO PRN ×2 (08:53→17:38)
--- NOTE | 2016-07-10 10:10 | PCM.PYCHPN ---
Psychiatric Progress Note - Psychiatric Progress Note Patient seen today, length of contact: 25 MIN Patient Chief Complaint: "better" Problems Identified/Issues Discussed: I reviewed recent notes and met with patient in the dayroom. Patient appears better groomed and speech is still much more coherent than admission. He is alert and oriented to month, year location, circumstances. Patient's affect appears brighter and more reactive. He is generally calm and friendly during our interview. Lability on the unit is improving and patient is redirectable. He is able to joke at times with staff and peers. Patient reports that he is feeling better and denies any new concerns. Continues to deny thoughts to harm others including the neighbor who lives up the block from him. Indicates that sleep was still restless last night even with the increase of sonata. Patient denies symptoms of alcohol withdrawal and has been tolerating his current prescribed medications well. Agreeable to further Ativan taper. Thought processes is fairly coherent and responses are relevant to questioning. He denies having any hallucinations. Delusions were not elicited. There were no behavioral issues overnight. Diagnostic Results: Bipolar disorder with psychotic features Polysubstance abuse Medication Change: Yes (Sonata increased to 15 mg HS on 07/09/16, Ativan decreased) Medical Record Reviewed: Yes (notes, reports, labs, vitals) Mental Status Examination - Cognitive Function Attention: WNL Concentration: Poor Association: Loose - Mood Mood: Depressed, Anxious - Affect Affect: Broad - Speech Speech: Appropriate - Formal Thought Process Formal Thought Process: No Impairment - Suicidal Ideation Suicidal Ideation: No - Homicidal Ideation Homicidal Ideation: No Goal/Treatment Plan - Goal/Treatment Plan Need for Continued Stay: Remain at risks for inpatient hospitalization, Discharge may exacerbated symptoms Progress Toward Problem(s) and Goals/Treatment Plan: * group, milieu and supportive therapy * Appreciate f/u by Dr. Ellison on 07/06/16 & 07/08/16 & 07/09/16~plan to repeat labs and f/u * Depakote ER 1000 mg HS for mood control, VPA on 07/06/16=44, check another VPA level on 07/10/16 * Trazodone 200 mg HS for depression and off-label for insomnia * Seroquel XR 200 mg q5pm for mood control, impulse control and disorganization * c/w Ativan to help with alcohol withdrawal and mood control. Ativan 1 mg po AM HS decreased to Ativan 1 mg HS on 07/09/16, to taper as tolerated. * Sonata increased to 10 mg HS on 07/09/16 and then increased again on 07/10/16 to 15 mg HS to help with insomnia * Vitals reviewed and noted below: Selected Entries 07/09/16 07/09/16 07/09/16 06:45 08:00 16:04 Temperature 97.5 F L Pulse Rate 75 75 81 Respiratory 18 Rate Blood Pressure 114/80 114/80 108/69 07/09/16 17:24 Temperature Pulse Rate 81 Respiratory Rate Blood Pressure 108/69 ER LABS AND STUDIES NOTED BELOW 07/06/16 02:01: Urine Color Yellow, Urine Appearance Clear, Urine pH 7.0, Ur Specific [place] 1.020, Urine Protein Trace H, Urine Glucose (UA) Negative, Urine Ketones Negative, Urine Blood Negative, Urine Nitrate Negative, Urine Bilirubin Negative, Urine Urobilinogen 1.0 H, Ur Leukocyte Esterase Negative, Urine RBC 0 - 2, Urine WBC 0 - 2, Ur Epithelial Cells 0 - 2, Urine Opiates Screen Negative, Urine Methadone Screen Negative, Ur Barbiturates Screen Negative, Ur Phencyclidine Scrn Negative, Ur Amphetamines Screen Negative, U Benzodiazepines Scrn Positive H, U Oth Cocaine Metabols Negative, U Cannabinoids Screen Positive H 07/06/16 01:10: WBC 6.3, RBC 4.82, Hgb 15.1, Hct 43.7, MCV 90.7, MCH 31.3, MCHC 34.6, RDW 14.0, Plt Count 276, MPV 9.1, Gran % 50.2, Lymph % (Auto) 32.5, [place] % (Auto) 12.8 H, Eos % (Auto) 4.0, Baso % (Auto) 0.5, Gran # 3.15, Lymph # 2.0, [place] # 0.8 H, Eos # 0.3, Baso # 0.03, Sodium 145, Potassium 4.5, Chloride 110, Carbon Dioxide 25, Anion Gap 15, BUN 19, Creatinine 1.2, Est GFR ( Amer) > 60, Est GFR (Non-Af Amer) > 60, Random Glucose 96, Calcium 8.6, Total Bilirubin 0.4, AST 56, ALT 50, Alkaline Phosphatase 89, Total Protein 7.5, Albumin 4.0, Globulin 3.5, Albumin/Globulin Ratio 1.1, Salicylates < 1 L, Acetaminophen < 10.0 L, Alcohol, Quantitative 99 H 07/06/16 02:15 EKG NSR @ 88 bpm. Cannot rule out Anterior infarct, age undetermined.
[2016-07-10] MEDS: QUEtiapine 200 mg XR Tab PO SCH (17:35)
[2016-07-10] MEDS: Divalproex 500 mg ER (ONCE DAILY formulation) PO SCH (21:34)
[2016-07-11] MEDS: Apap-Butalbital-Caffeine 325-50-40mg Tab PO PRN ×4 (03:57→21:21)
--- NOTE | 2016-07-11 07:56 | PN ---
DATE: 07/10/2016 SUBJECTIVE: The patient was seen and examined on the bedside, looks comfortable. No more headache. No nausea, vomiting, or diarrhea. No hematuria or hematochezia. No swelling of the leg. No chest pain, no palpitation, no dyspnea. No fever, no chills. PHYSICAL EXAMINATION: VITAL SIGNS: Temperature is 98.2, pulse 75, blood pressure 112/72, respiratory rate 18. HEAD: Normocephalic, atraumatic. EYES: PERRLA. Extraocular movements intact. Conjunctivae pink. Eyelids unremarkable. Nose patent. Mucous membranes moist. NECK: Supple. No carotid bruit, JVD or thyromegaly. CHEST: Symmetrical. HEART: S1, S2 positive. LUNGS: Clear to auscultation. ABDOMEN: Soft. Bowel sounds present. No organomegaly. EXTREMITIES: No edema, no cyanosis. NEUROLOGIC: The patient is awake, alert, moving all 4 extremities. No focal deficits. MEDICATIONS: Actigall, Depakote. Started on Fioricet, Flomax, Lopressor, Pepcid, Seroquel, Tylenol. LABORATORY DATA: We do not have recent labs today, but I reviewed old labs. ASSESSMENT AND PLAN: The patient is a 61-year-old male seen by me in the psych department and according to psychiatrist, the patient says that he is feeling better. Otherwise he has bipolar disorder with psychotic features; polysubstance abuse, history of nephrolithiasis, bladder stented by ureter, history of substance abuse, alcohol abuse, history of migraine got better , and cocaine abuse, alcohol abuse, multiple psychotic admissions, history of liver cancer as per patient. Arthritis, depression, nephrolithiasis, bipolar with psychotic features. Repeat labs. We will follow up. Cristina Ellison MD cc: [id number] TT: 07/11/2016 03:02:38 Confirmation # [id number] Dictation # [id number] MTDD
--- NOTE | 2016-07-11 10:05 | PCM.PYCHPN ---
Psychiatric Progress Note - Psychiatric Progress Note Patient seen today, length of contact: 25 MIN Patient Chief Complaint: "better" Problems Identified/Issues Discussed: I reviewed recent notes and met with patient in the dayroom. Patient appears better groomed and speech is still much more coherent than admission. He is alert and oriented to month, year location, circumstances. Patient's affect appears brighter and more reactive. He is generally calm and friendly during our interview. Lability on the unit is improving and patient is redirectable. He is able to joke at times with staff and peers. Patient reports that he is feeling better and denies any new concerns. Continues to deny thoughts to harm others including the neighbor who lives up the block from him. Indicates that sleep was a little improved last night with the increase of sonata. Patient denies symptoms of alcohol withdrawal and has been tolerating his current prescribed medications well. Agreeable to further Ativan taper. Thought processes is fairly coherent and responses are relevant to questioning. He denies having any hallucinations. Delusions were not elicited. There were no behavioral issues overnight. Diagnostic Results: Bipolar disorder with psychotic features Polysubstance abuse Medication Change: Yes (Sonata increased , Ativan decreased) Medical Record Reviewed: Yes (notes, reports, labs, vitals) Mental Status Examination - Cognitive Function Attention: WNL Concentration: Poor Association: Loose - Mood Mood: Depressed, Anxious - Affect Affect: Broad - Speech Speech: Appropriate - Formal Thought Process Formal Thought Process: No Impairment - Suicidal Ideation Suicidal Ideation: No - Homicidal Ideation Homicidal Ideation: No Goal/Treatment Plan - Goal/Treatment Plan Need for Continued Stay: Remain at risks for inpatient hospitalization, Discharge may exacerbated symptoms Progress Toward Problem(s) and Goals/Treatment Plan: * group, milieu and supportive therapy * Appreciate f/u by Dr. Ellison on 07/06/16 & 07/08/16 & 07/09/16~plan to repeat labs and f/u * Depakote ER 1000 mg HS for mood control, VPA on 07/06/16=44, VPA level on =50 * Trazodone 200 mg HS for depression and off-label for insomnia * Seroquel XR 200 mg q5pm for mood control, impulse control and disorganization * c/w Ativan to help with alcohol withdrawal and mood control. Ativan 1 mg po AM HS decreased to Ativan 1 mg HS on 07/09/16 and then to 0.5 mg HS on 07/11/16, to taper as tolerated. * Sonata increased to 20 mg HS on 07/11/16 * Vitals reviewed and noted below: Selected Entries 07/10/16 07/10/16 07/10/16 06:31 08:53 16:38 Temperature 98.2 F Pulse Rate 72 72 75 Respiratory 18 Rate Blood Pressure 104/72 104/72 112/72 07/10/16 17:35 Temperature Pulse Rate 75 Respiratory Rate Blood Pressure 112/72 ER LABS AND STUDIES NOTED BELOW 07/06/16 02:01: Urine Color Yellow, Urine Appearance Clear, Urine pH 7.0, Ur Specific [place] 1.020, Urine Protein Trace H, Urine Glucose (UA) Negative, Urine Ketones Negative, Urine Blood Negative, Urine Nitrate Negative, Urine Bilirubin Negative, Urine Urobilinogen 1.0 H, Ur Leukocyte Esterase Negative, Urine RBC 0 - 2, Urine WBC 0 - 2, Ur Epithelial Cells 0 - 2, Urine Opiates Screen Negative, Urine Methadone Screen Negative, Ur Barbiturates Screen Negative, Ur Phencyclidine Scrn Negative, Ur Amphetamines Screen Negative, U Benzodiazepines Scrn Positive H, U Oth Cocaine Metabols Negative, U Cannabinoids Screen Positive H 07/06/16 01:10: WBC 6.3, RBC 4.82, Hgb 15.1, Hct 43.7, MCV 90.7, MCH 31.3, MCHC 34.6, RDW 14.0, Plt Count 276, MPV 9.1, Gran % 50.2, Lymph % (Auto) 32.5, [place] % (Auto) 12.8 H, Eos % (Auto) 4.0, Baso % (Auto) 0.5, Gran # 3.15, Lymph # 2.0, [place] # 0.8 H, Eos # 0.3, Baso # 0.03, Sodium 145, Potassium 4.5, Chloride 110, Carbon Dioxide 25, Anion Gap 15, BUN 19, Creatinine 1.2, Est GFR ( Amer) > 60, Est GFR (Non-Af Amer) > 60, Random Glucose 96, Calcium 8.6, Total Bilirubin 0.4, AST 56, ALT 50, Alkaline Phosphatase 89, Total Protein 7.5, Albumin 4.0, Globulin 3.5, Albumin/Globulin Ratio 1.1, Salicylates < 1 L, Acetaminophen < 10.0 L, Alcohol, Quantitative 99 H 07/06/16 02:15 EKG NSR @ 88 bpm. Cannot rule out Anterior infarct, age undetermined.
[2016-07-11 16:15] VITALS: PULSE 70
[2016-07-11] MEDS: QUEtiapine 200 mg XR Tab PO SCH (17:33)
[2016-07-11] MEDS: Divalproex 500 mg ER (ONCE DAILY formulation) PO SCH (21:20)
[2016-07-12 06:44] VITALS: BP 103/63; RESP 19; TEMP 97.6
--- NOTE | 2016-07-12 07:43 | PN ---
DATE: 07/11/2016 The patient was seen and examined on the bedside. Looks comfortable. No nausea, vomiting or diarrhea. Headache is better. No fever, no chills. No claudication. Sleep was okay. Depression is getting bett er. No suicidal or homicidal ideation. PHYSICAL EXAMINATION: VITAL SIGNS: Temperature 98.1, pulse 70, blood pressure 113/79, respiratory rate 18. HEENT: Head is normocephalic, atraumatic. Eyes: PERRLA. Extraocular muscles intact. Conjunctivae pi nk. Eyelids unremarkable. Nose patent. NECK: Supple. No carotid bruits. No JVD or thyromegaly. CHEST: Bilaterally symmetrical. HEART: S1, S2 positive. LUNGS: Clear to auscultation. ABDOMEN: Soft. Bowel sounds present. No organomegaly. EXTREMITIES: No edema, no cyanosis. NEUROLOGIC: The patient is awake, alert. Moving all 4 extremities. No focal deficits. MEDICATIONS: Ativan, Depakote, trazodone, Fioricet, Flomax, Lopressor, Pepcid, Seroquel, Sonata, Tyl enol. LABORATORY DATA: We do not have his lab today, but I reviewed old labs. ASSESSMENT AND PLAN: This patient with multiple medical problems, history of migraine (improved), ca me in psychiatric department, getting treatment from the psychiatrist (improving), history of bipolar disorder with psychotic features, polysubstance abuse, nephrolithiasis, stent in ureter; history of substance abuse, alcohol abuse, cocaine abuse; multiple psychiatric admissions, history of liver canc er, arthritis, depression. GI and DVT prophylaxis. Repeat labs. Will follow up. Cristina Ellison MD cc: [id number] TT: 07/12/2016 07:42:26 Confirmation # [id number] Dictation # [id number] mn
[2016-07-12] MEDS: Apap-Butalbital-Caffeine 325-50-40mg Tab PO PRN (08:10)
--- NOTE | 2016-07-12 10:13 | PCM.PYCHDC ---
Mental Status Examination - Mental Status Examination Orientation: Person, Place, Situation Memory: Intact Mood: Neutral Affect: Broad Speech: Appropriate Attention: WNL Concentration: WNL Association: WNL Fund of Knowledge: WNL Formal Thought Process: No Impairment Description of patient's judgement and insight: FAIR I/J Psychotic Thoughts and Behaviors: NO AVJavier, PI. NO DELUSIONS ELICITED Suicidal Ideation: No Current Homicidal Ideation?: No Discharge Summary - Discharge Note Reason for Hospitalization: Patient is a 61 year old male, with a history of Bipolar Disorder I, Severe Alcohol use disorder, Severe Cannabis use disorder, pain killer and benzos addiction, multiple admissions (most recently discharged from [facility] [place] psych unit on 06/29/16) and suicide attempts presented to the emergency department complaining of depression, suicidal and homicidal ideation without a plan. Laboratory Data: 07/06/16 02:15 EKG NSR @ 88 bpm. Cannot rule out Anterior infarct, age undetermined. Laboratory Tests 07/06/16 07/06/16 07/06/16 01:10 02:01 14:00 WBC 6.3 RBC 4.82 Hgb 15.1 Hct 43.7 MCV 90.7 MCH 31.3 MCHC 34.6 RDW 14.0 Plt Count 276 MPV 9.1 Gran % 50.2 Lymph % (Auto) 32.5 [place] % (Auto) 12.8 H Eos % (Auto) 4.0 Baso % (Auto) 0.5 Gran # 3.15 Lymph # 2.0 [place] # 0.8 H Eos # 0.3 Baso # 0.03 Sodium 145 Potassium 4.5 Chloride 110 Carbon Dioxide 25 Anion Gap 15 BUN 19 Creatinine 1.2 Est GFR ( Amer) > 60 Est GFR (Non-Af Amer) > 60 Random Glucose 96 Calcium 8.6 Total Bilirubin 0.4 AST 56 ALT 50 Alkaline Phosphatase 89 Total Protein 7.5 Albumin 4.0 Globulin 3.5 Albumin/Globulin Ratio 1.1 Triglycerides 129 Cholesterol 158 LDL Cholesterol Direct 74 HDL Cholesterol 56 Free T4 0.85 TSH 3rd Generation 1.24 Urine Color Yellow Urine Appearance Clear Urine pH 7.0 Ur Specific [place] 1.020 Urine Protein Trace H Urine Glucose (UA) Negative Urine Ketones Negative Urine Blood Negative Urine Nitrate Negative Urine Bilirubin Negative Urine Urobilinogen 1.0 H Ur Leukocyte Esterase Negative Urine RBC 0 - 2 Urine WBC 0 - 2 Ur Epithelial Cells 0 - 2 Salicylates < 1 L Urine Opiates Screen Negative Urine Methadone Screen Negative Acetaminophen < 10.0 L Ur Barbiturates Screen Negative Valproic Acid Ur Phencyclidine Scrn Negative Ur Amphetamines Screen Negative U Benzodiazepines Scrn Positive H U Oth Cocaine Metabols Negative U Cannabinoids Screen Positive H Alcohol, Quantitative 99 H RPR Nonreactive 07/07/16 07/10/16 09:46 08:00 WBC RBC Hgb Hct MCV MCH MCHC RDW Plt Count MPV Gran % Lymph % (Auto) [place] % (Auto) Eos % (Auto) Baso % (Auto) Gran # Lymph # [place] # Eos # Baso # Sodium Potassium Chloride Carbon Dioxide Anion Gap BUN Creatinine Est GFR ( Amer) Est GFR (Non-Af Amer) Random Glucose Calcium Total Bilirubin AST ALT Alkaline Phosphatase Total Protein Albumin Globulin Albumin/Globulin Ratio Triglycerides Cholesterol LDL Cholesterol Direct HDL Cholesterol Free T4 TSH 3rd Generation Urine Color Urine Appearance Urine pH Ur Specific [place] Urine Protein Urine Glucose (UA) Urine Ketones Urine Blood Urine Nitrate Urine Bilirubin Urine Urobilinogen Ur Leukocyte Esterase Urine RBC Urine WBC Ur Epithelial Cells Salicylates Urine Opiates Screen Urine Methadone Screen Acetaminophen Ur Barbiturates Screen Valproic Acid 44 L 50 Ur Phencyclidine Scrn Ur Amphetamines Screen U Benzodiazepines Scrn U Oth Cocaine Metabols U Cannabinoids Screen Alcohol, Quantitative RPR Consultations:: List each consultation separately and include: 1. Reason for request. 2. Findings. 3. Follow-up Consultations: f/u by Dr. Ellison on 07/06/16 & 07/08/16 & 07/09/16 & 07/10/16 Summary of Hospital Course include:: 1. Description of specific treatment plan utilized for patients during their course of treatmen. 2. Summarize the time- course for resolution of acute symptoms and/or regressed behaviors. 3. Describe issues identified and worked on during hospitalization. 4. Describe medication utilized. 5. Describe medical problems identified and treated. 6. Reassessment of suicide risk Summary of Hospital Course: Patient is a 61 year old male, with a history of Bipolar Disorder I, Severe Alcohol use disorder, Severe Cannabis use disorder, pain killer and benzos addiction, multiple admissions (most recently discharged from [facility] [place] psych unit on 06/29/16) and suicide attempts presented to the emergency department complaining of depression, suicidal and homicidal ideation without a plan. Patient scheduled for discharge today and this provider meets with him to ensure stability for discharge. Patient reports improvement since his admission and denies having any new concerns. Indicates mood is improved and that he is more hopeful. Denies having any wishes, suicidal thoughts or thoughts to harm others. SPECIFICALLY DENIES THOUGHTS TO HARM NEIGHBOR. Patient also denies having any perceptual disturbance during today's interview. Focus and eye contact are good. Patient is related and affect demonstrates moderate range with appropriate reactivity. Overall he feels very comfortable with today's discharge date and after care plans. Note, patient refused smoking AND alcohol cessation medications at admission and at discharge. - Final Diagnosis (DSM 5) Condition upon Discharge: FAIR DSM 5: Bipolar disorder with psychotic features Polysubstance abuse Disposition: HOME/ ROUTINE Follow-up Treatment Plan: PER SOCIAL WORK 07/11/16 14:59 - by Caitlin Laird (REFER TO NOTE FOR FULL DISPOSITION) Acct Num: [id number] : 1955 Patient Age: 61 SW reiterated importance of attending an inpatient rehabilitation program to address his alcohol and drug addiction. PT states he may consider but refuses at this time. SW offered to provide list of inpatient rehabs for his review upon discharge. Pt agreeable. FOLLOWING MEDICATIONS WERE CALLED INTO [facility] 2 WEEKS + 1 RF * Depakote ER 1000 mg HS for mood control, VPA on 07/06/16=44, VPA level on =50 * Trazodone 200 mg HS for depression and off-label for insomnia * Seroquel XR 200 mg q5pm for mood control, impulse control and disorganization * Sonata 20 mg HS for insomnia - Smoking Cessation Smoking Cessation Medication prescribed: No Reason for not providing: PATIENT REFUSED CESSATION MEDICATION AT ADMISSION AND AT DISCHARGE - Antipsychotic Medications Pt discharged on 2 or more routine antipsychotic medications: No
--- NOTE | 2016-07-13 07:58 | PN ---
DATE: 07/12/2016 The patient is a 61-year-old male. The patient was seen and examined on 2016 early in the morning. The patient looks comfortable, happy to go home. No nausea, vomiting, diarrhea. No hematuria, no hematochezia. No swelling of the legs. No chest pain, no palpitation. No headache, no dizziness, no shortness of breath, no fever, no chills. PHYSICAL EXAMINATION: VITAL SIGNS: Temperature is 97.6, pulse 70, blood pressure 103/80 , respiratory rate 19. HEENT: Head normocephalic, atraumatic. Eyes: PERRLA. Extraocular muscles intact. Conjunctivae pink. Eyelids unremarkable. Nose patent. NECK: Supple. No carotid bruit, no JVD, no thyromegaly. CHEST: Bilaterally symmetrical. HEART: S1, S2 positive. LUNGS: Clear to auscultation. ABDOMEN: Soft. Bowel sounds positive. No organomegaly. EXTREMITIES: No edema, no cyanosis. NEUROLOGIC: The patient is awake, alert, moving all 4 extremities. No focal deficits. MEDICATIONS: Ativan, Depakote, trazodone, Fioricet, Flomax, Lopressor, Pepcid, Seroquel, Sonata, Tylenol. LABORATORIES: We do not have recent labs today, but I reviewed old labs. ASSESSMENT AND PLAN: The patient is a 61-year-old male with history of bipolar disorder, severe alcohol abuse, severe cannabinoid use disorder, painkiller and benzodiazepine addiction, multiple admissions in the psych department for suicidal attempts. Came to Emergency Room complaining about depression, suicidal and homicidal ideation without plan. The patient was admitted in the psych department, got treatment, improved, discharged home today. Will follow up with her psychiatrist and primary care physician. History of nephrolithiasis , has stent in the ureter, history of hypertension. According to patient, he has history of liver cancer in the past, degenerative joint disease, chronic pain syndrome. The patient discharged home on 2 or more routine antipsychotic medications. Will follow up. Cristina Ellison MD cc: [id number] TT: 07/13/2016 07:57:17 Confirmation # [id number] Dictation # [id number] en MANDY
== END 2016-07-12 15:15 | disposition home or self-care (01) | DRG 885 ==
LOC: ED 00:26 → ERH 09:38 → PSYC 13:09
PROVIDERS: ADMIT Psychologist; ATTEND Psychologist
DX: F31.5 Bipolar disorder, current episode depressed, severe, with psychotic features (principal); I10 Essential (primary) hypertension; F14.10 Cocaine abuse, uncomplicated; F12.10 Cannabis abuse, uncomplicated; F10.10 Alcohol abuse, uncomplicated; Y90.4 Blood alcohol level of 80-99 mg/100 ml; J44.9 Chronic obstructive pulmonary disease, unspecified; N20.0 Calculus of kidney; M19.90 Unspecified osteoarthritis, unspecified site; G43.909 Migraine, unspecified, not intractable, without status migrainosus; G89.4 Chronic pain syndrome; Z85.05 Personal history of malignant neoplasm of liver

== ENCOUNTER 2016-10-29 12:53 | Observation (INO) | payer MEDICARE, OTHER ==
[2016-10-29 12:53] VITALS: BMI 22.9
[2016-10-29 13:34] VITALS: TEMP 98.1
--- NOTE | 2016-10-29 13:43 | ED PDOC ---
Arrival/HPI - General Chief Complaint: Alcohol Ingestion Time Seen by Provider: 10/29/16 13:13 Historian: Patient - History of Present Illness Narrative History of Present Illness (Text): 10/29/16 13:43 A 61 year old male, whose past medical history includes alcohol abuse, was brought in by EMS for public intoxication. Patient admits to drinking alcohol, cocaine, marijuana, Xanax and Percocet use. Patient denies suicidal ideation, depression or any other complaints at this time. Time/Duration: Prior to Arrival Symptom Onset: Sudden Symptom Course: Unchanged Activities at Onset: Rest Past Medical History - Provider Review Nursing Documentation Reviewed: Yes - Infectious Disease Hx of Infectious Diseases: None - Tetanus Immunization Tetanus Immunization: Unknown - Cardiac Hx Cardiac Disorders: No Hx Hypertension: No - Pulmonary Hx Chronic Obstructive Pulmonary Disease (COPD): Yes - Neurological Hx Neurological Disorder: No Hx Seizures: No - HEENT Hx HEENT Disorder: No - Renal Hx Renal Disorder: No - Endocrine/Metabolic Hx Endocrine Disorders: No - Hematological/Oncological Hx Blood Disorders: Yes Hx Cancer: Yes (liver) - Integumentary Hx Dermatological Disorder: No - Musculoskeletal/Rheumatological Hx Arthritis: Yes Hx Fractures: Yes Other/Comment: Claimed of multiple surgery mostly orthopedic. - Gastrointestinal Hx Gastrointestinal Disorders: Yes Hx Liver Failure: Yes (liver cancer) - Genitourinary/Gynecological Hx Genitourinary Disorders: No Hx Prostate Problems: Yes Hx Sexually Transmitted Diseases: No - Psychiatric Hx Bipolar Disorder: Yes Hx Depression: Yes Hx Schizophrenia: Yes Hx Substance Use: Yes - Past Surgical History Past Surgical History: Unable to Obtain - Surgical History Hx Appendectomy: Yes Hx Orthopedic Surgery: Yes (right knee) Other/Comment: nose/face/kidney stones - Anesthesia Hx Anesthesia: Yes Hx Anesthesia Reactions: No Hx Malignant Hyperthermia: No - Suicidal Assessment Feels Threatened In Home Enviroment: No Family/Social History - Physician Review Nursing Documentation Reviewed: Yes Family/Social History: No Known Family HX Smoking Status: Current Some Days Smoker Hx Alcohol Use: Yes Hx Substance Use: Yes Substance used: heroine Hx Substance Use Treatment: Yes ([place] 29 days 27 years ago) Allergies/Home Meds Allergies/Adverse Reactions: Allergies banana Allergy (Verified 06/25/16 02:10) ANAPHYLAXIS tea tree Allergy (Verified 06/25/16 02:10) ANAPHYLAXIS Review of Systems - Physician Review All systems were reviewed & negative as marked: Yes - Review of Systems Constitutional: absent: Fevers Respiratory: absent: SOB Psychiatric: absent: Depression, Suicidal Ideation Physical Exam Vital Signs Reviewed: Yes Vital Signs Temp Pulse Resp BP Pulse Ox 10/29/16 18:28 84 17 120/78 97 10/29/16 17:30 80 18 108/74 96 10/29/16 13:00 98.1 F 86 18 115/76 96 Temperature: Afebrile Blood Pressure: Normal Pulse: Regular Respiratory Rate: Normal Appearance: Positive for: Comfortable, Unkept (intoxicated, homeless) Pain Distress: None Mental Status: Positive for: Alert and Oriented X 3 - Systems Exam Head: Present: Atraumatic, Normocephalic Pupils: Present: PERRL Extroacular Muscles: Present: EOMI Conjunctiva: Present: Normal Mouth: Present: Moist Mucous Membranes Neck: Present: Normal Range of Motion Respiratory/Chest: Present: Clear to Auscultation, Good Air Exchange. No: Respiratory Distress, Accessory Muscle Use Cardiovascular: Present: Regular Rate and Rhythm, Normal S1, S2. No: Murmurs Abdomen: Present: Normal Bowel Sounds. No: Tenderness, Distention, Peritoneal Signs Back: Present: Normal Inspection Upper Extremity: Present: Normal Inspection. No: Cyanosis, Edema Lower Extremity: Present: Normal Inspection. No: Edema Neurological: Present: GCS=15, CN II-XII Intact, Other (no focal deficits) Skin: Present: Warm, Dry, Normal Color. No: Rashes Psychiatric: Present: Alert, Oriented x 3. No: Depressed Mood, Suicidal Ideation ED OBSERVATION Date of observation admission: 10/29/16 Time of observation admission: 13:20 - Observation admission statement Patient is being placed in observation because:: alcohol intoxication - Goals of Observation Goals of observation are:: pending sobriety - Progress Note Progress Note: 10/29/16 15:00 Patient is in no acute distress. 10/29/16 17:00 Patient is resting comfortably. 10/29/16 18:17 Patient is in no acute distress. Ambulatory with crutches. Patient is clinically sober. - Scribe Statement The provider has reviewed the documentation as recorded by the Aleksandra Santiago Provider Scribe Attestation: All medical record entries made by the Scribnick were at my direction and personally dictated by me. I have reviewed the chart and agree that the record accurately reflects my personal performance of the history, physical exam, medical decision making, and the department course for this patient. I have also personally directed, reviewed, and agree with the discharge instructions and disposition. Disposition/Present on Arrival - Present on Arrival Any Indicators Present on Arrival: No History of DVT/PE: No History of Uncontrolled Diabetes: No Urinary Catheter: No History of Decub. Ulcer: No History Surgical Site Infection Following: None - Disposition Have Diagnosis and Disposition been Completed?: Yes Diagnosis: Polysubstance abuse Disposition: HOME/ ROUTINE Disposition Time: 18:17 Condition: IMPROVED
[2016-10-29 18:28] VITALS: BP 120/78; PULSE 84; RESP 17; O2SAT 97
== END 2016-10-29 18:27 | disposition home or self-care (01) ==
LOC: ED 12:53 → EROBSV 13:30 → ED 18:35
PROVIDERS: ADMIT Emergency Medicine; ATTEND Emergency Medicine
DX: F19.10 Other psychoactive substance abuse, uncomplicated (principal)
CPT/HCPCS: 99285; G0378

== ENCOUNTER 2016-12-13 22:45 | Observation (INO) | payer MEDICARE, OTHER ==
[2016-12-13 22:48] VITALS: BMI 28.1
[2016-12-13 22:54] VITALS: TEMP 97.3
--- NOTE | 2016-12-13 23:06 | ED PDOC ---
Arrival/HPI - General Chief Complaint: Alcohol Ingestion Time Seen by Provider: 12/13/16 22:56 Historian: Patient - History of Present Illness Narrative History of Present Illness (Text): 12/13/16 22:58 Eber Lo is a 61 year old male whose PMHx includes etoh abuse, COPD, and depression who was brought in by EMS who presents to the emergency department because he was found to be intoxicated in public. History limited due to alcohol intoxication. Time/Duration: 4-6 hours Symptom Course: Unchanged Severity Level: Mild Activities at Onset: Rest Context: Home Past Medical History - Provider Review Nursing Documentation Reviewed: Yes - Infectious Disease Hx of Infectious Diseases: None - Tetanus Immunization Tetanus Immunization: Unknown - Cardiac Hx Cardiac Disorders: No Hx Hypertension: No - Pulmonary Hx Chronic Obstructive Pulmonary Disease (COPD): Yes - Neurological Hx Neurological Disorder: No Hx Seizures: No - HEENT Hx HEENT Disorder: No - Renal Hx Renal Disorder: No - Endocrine/Metabolic Hx Endocrine Disorders: No - Hematological/Oncological Hx Blood Disorders: Yes Hx Cancer: Yes (liver) - Integumentary Hx Dermatological Disorder: No - Musculoskeletal/Rheumatological Hx Arthritis: Yes Hx Fractures: Yes Other/Comment: Claimed of multiple surgery mostly orthopedic. - Gastrointestinal Hx Gastrointestinal Disorders: Yes Hx Liver Failure: Yes (liver cancer) - Genitourinary/Gynecological Hx Genitourinary Disorders: No Hx Prostate Problems: Yes Hx Sexually Transmitted Diseases: No - Psychiatric Hx Bipolar Disorder: Yes Hx Depression: Yes Hx Schizophrenia: Yes Hx Substance Use: Yes - Past Surgical History Past Surgical History: Unable to Obtain - Surgical History Hx Appendectomy: Yes Hx Orthopedic Surgery: Yes (right knee) Other/Comment: nose/face/kidney stones - Anesthesia Hx Anesthesia: Yes Hx Anesthesia Reactions: No Hx Malignant Hyperthermia: No - Suicidal Assessment Feels Threatened In Home Enviroment: No Family/Social History - Physician Review Nursing Documentation Reviewed: Yes Family/Social History: No Known Family HX Smoking Status: Current Some Days Smoker Hx Alcohol Use: Yes Hx Substance Use: Yes Substance used: heroine Hx Substance Use Treatment: Yes ([place] 29 days 27 years ago) Allergies/Home Meds Allergies/Adverse Reactions: Allergies banana Allergy (Verified 06/25/16 02:10) ANAPHYLAXIS tea tree Allergy (Verified 06/25/16 02:10) ANAPHYLAXIS Review of Systems - Review of Systems Systems not reviewed;Unavailable: Intoxicated Physical Exam - Physical Exam Physical Exam Limitations: Intoxication Vital Signs Reviewed: Yes Vital Signs Temp Pulse Resp BP Pulse Ox 12/13/16 22:54 97.3 F L 86 18 101/67 91 L Blood Pressure: Normal Pulse: Regular Respiratory Rate: Normal Appearance: Positive for: Other (Patient moves to stimulation but does not speak due to alcohol intoxication) Pain Distress: None Mental Status: Positive for: other (Intoxicated) Finger Stick Blood Glucose: 99 - Systems Exam Head: Present: Atraumatic, Normocephalic Pupils: Present: PERRL Conjunctiva: Present: Normal Mouth: Present: Moist Mucous Membranes Pharnyx: Present: Normal. No: ERYTHEMA, EXUDATE Neck: Present: Normal Range of Motion Respiratory/Chest: Present: Clear to Auscultation, Good Air Exchange. No: Respiratory Distress, Accessory Muscle Use Cardiovascular: Present: Regular Rate and Rhythm, Normal S1, S2. No: Murmurs Abdomen: Present: Normal Bowel Sounds. No: Tenderness, Distention, Peritoneal Signs Back: Present: Normal Inspection Upper Extremity: Present: Normal Inspection. No: Cyanosis, Edema Lower Extremity: Present: Normal Inspection. No: Edema Neurological: Present: GCS=15, CN II-XII Intact, Speech Normal Skin: Present: Warm, Dry, Normal Color. No: Rashes Psychiatric: Present: Intoxicated Medical Decision Making ED Course and Treatment: 12/14/16 06:39 Patient BIB EMS with significant etoh intoxication. Per history, he has COPD, ABG was done showing no hypercapnea. Will reassess patient and observe till sobriety. - Lab Interpretations Lab Results: Lab Results 12/13/16 22:57: POC Glucose (mg/dL) 99 I have reviewed the lab results: Yes ED OBSERVATION Discharge: Yes Date of observation admission: 12/13/16 Time of observation admission: 22:58 - Observation admission statement Patient is being placed in observation because:: Alcohol Intoxication - Goals of Observation Goals of observation are:: Plan: -- ABG -- Reassess and disposition - Progress Note Progress Note: 12/14/16 12:45 AM Patient resting comfortably and still intoxicated. 12/14/16 02:44 Patient is resting comfortably and is more arousable to stimuli. Patient denies any complaints including SI. Patient admits to heavy ETOH abuse earlier. 12/14/16 04:30 Patient more arousable; resting comfortably but still intoxicated. 12/19/16 06:25 Patient is significantly more arousable and is without complaints. 12/14/16 06:57 Patient is now fully sober, awake, alert, and oriented with normal baseline gait (with cane) and speech is without complaints - ok for d/c. - Scribe Statement The provider has reviewed the documentation as recorded by the Garryibnick Wilson Provider Scribe Attestation: All medical record entries made by the Garryibnick were at my direction and personally dictated by me. I have reviewed the chart and agree that the record accurately reflects my personal performance of the history, physical exam, medical decision making, and the department course for this patient. I have also personally directed, reviewed, and agree with the discharge instructions and disposition. Disposition/Present on Arrival - Present on Arrival Any Indicators Present on Arrival: No History of DVT/PE: No History of Uncontrolled Diabetes: No Urinary Catheter: No History of Decub. Ulcer: No History Surgical Site Infection Following: None - Disposition Have Diagnosis and Disposition been Completed?: Yes Diagnosis: Alcohol abuse Disposition: HOME/ ROUTINE Disposition Time: 07:00 Patient Plan: Discharge Patient Problems: Current Active Problems Problem Status Onset Alcohol abuse Acute Condition: GOOD
[2016-12-13 23:19] LABS: ARTERIAL BLOOD GAS HCO3 20.1 mmol/L (21-28); ARTERIAL BLOOD GAS PH 7.32 (7.35-7.45)
[2016-12-14 07:10] VITALS: BP 116/76; PULSE 88; RESP 16; O2SAT 99
== END 2016-12-14 07:00 | disposition home or self-care (01) ==
LOC: ED 22:45 → EROBSV 22:58
PROVIDERS: ADMIT Emergency Medicine; ATTEND Emergency Medicine
DX: F10.10 Alcohol abuse, uncomplicated (principal); Z85.05 Personal history of malignant neoplasm of liver
CPT/HCPCS: 82803; 82948; 99284; G0378

== ENCOUNTER 2016-12-29 23:11 | Inpatient (IN) | payer MEDICARE, OTHER ==
[2016-12-29 23:12] VITALS: BMI 28.1
[2016-12-29] MEDS ORDERED: Multivitamin (MVI) 10 ML, Thiamine 100 MG, Folic Acid 1 MG in Sodium Chloride 0.9% 1,00... IV ONE (23:33)
--- NOTE | 2016-12-29 23:35 | ED PDOC ---
Arrival/HPI <Jason Bentley - Last Filed: 12/30/16 00:21> - General Historian: Patient EM Caveat: Intoxicated - History of Present Illness Time/Duration: Prior to Arrival Symptom Onset: Sudden Symptom Course: Unchanged Quality: Aching Severity Level: Mild Context: Tripped <RameshPromise hollisne - Last Filed: 12/30/16 05:40> - General Chief Complaint: Trauma Time Seen by Provider: 12/29/16 23:14 - History of Present Illness Narrative History of Present Illness (Text): 12/29/16 23:42 61M w/PMH sig for ETOH abuse, COPD, substance abuse, depression, hx of suicidal ideation, liver cancer evaluated for alcohol intoxication. Pt reports that his threw him out, he was sleeping outside, drinking 5 pints of vodka and lots of beeer, when he tried to get up to walk him, he fell, hurting his right wrist. Pain is localized, only with flexion, non radiating. Pt reports he took 40 Xanax with the intention of committing suicide. Admits to BOSS, spots in his vision, states he is "hearing voices that tell him to kill himself", dysuria, urinary frequency. Denies N/V/F/C, SOB, cp, ab pain, constipation, diarrhea, other complaints. PMH: Substance abuse, liver Cancer PSH: ventral hernia repair x 8 All: Bananas, tea tree SH: Admits to tobacco use "a lot", admits to ETOH abuse- states he drank 5 pints of vodka and lots of beer, admits to taking 40 Xanax with intention to commit suicide, admits to cocaine use yesterday; admits to sexual activity with "several girlfriends" PMD: Denies (Belem Ramesh) Past Medical History - Provider Review Nursing Documentation Reviewed: Yes - Travel History Have you recently traveled outside [place] w/in the past 3 mons?: Yes - Infectious Disease Hx of Infectious Diseases: None - Tetanus Immunization Tetanus Immunization: Unknown - Cardiac Hx Cardiac Disorders: No Hx Hypertension: No - Pulmonary Hx Chronic Obstructive Pulmonary Disease (COPD): Yes - Neurological Hx Neurological Disorder: No Hx Seizures: No - HEENT Hx HEENT Disorder: No - Renal Hx Renal Disorder: No - Endocrine/Metabolic Hx Endocrine Disorders: No - Hematological/Oncological Hx Blood Disorders: Yes Hx Cancer: Yes (liver) - Integumentary Hx Dermatological Disorder: No - Musculoskeletal/Rheumatological Hx Arthritis: Yes Hx Fractures: Yes Other/Comment: Claimed of multiple surgery mostly orthopedic. - Gastrointestinal Hx Gastrointestinal Disorders: Yes Hx Liver Failure: Yes (liver cancer) - Genitourinary/Gynecological Hx Genitourinary Disorders: No Hx Prostate Problems: Yes Hx Sexually Transmitted Diseases: No - Psychiatric Hx Bipolar Disorder: Yes Hx Depression: Yes Hx Schizophrenia: Yes Hx Substance Use: Yes - Past Surgical History Past Surgical History: Unable to Obtain - Surgical History Hx Appendectomy: Yes Hx Orthopedic Surgery: Yes (right knee) Other/Comment: nose/face/kidney stones - Anesthesia Hx Anesthesia: Yes Hx Anesthesia Reactions: No Hx Malignant Hyperthermia: No - Suicidal Assessment Feels Threatened In Home Enviroment: No <Belem Ramesh - Last Filed: 12/30/16 05:40> Family/Social History - Physician Review Nursing Documentation Reviewed: Yes Family/Social History: No Known Family HX Smoking Status: Current Some Days Smoker Hx Alcohol Use: Yes Hx Substance Use: Yes Substance used: heroine Hx Substance Use Treatment: Yes ([place] 29 days 27 years ago) <Belem Ramesh - Last Filed: 12/30/16 05:40> Allergies/Home Meds <Jason Bentley - Last Filed: 12/30/16 00:21> <Belem Ramesh - Last Filed: 12/30/16 05:40> Allergies/Adverse Reactions: Allergies banana Allergy (Verified 06/25/16 02:10) ANAPHYLAXIS tea tree Allergy (Verified 06/25/16 02:10) ANAPHYLAXIS Review of Systems - Review of Systems Constitutional: Normal. absent: Fevers Eyes: Vision Changes Respiratory: Normal. absent: SOB, Cough Cardiovascular: Normal. absent: Chest Pain, Palpitations Gastrointestinal: Normal. absent: Abdominal Pain, Nausea, Vomiting Genitourinary Male: Dysuria, Frequency Musculoskeletal: Normal. absent: Back Pain Skin: Normal. absent: Rash, Laceration Neurological: Headache Psychiatric: Depression, Suicidal Ideation. absent: Normal <Belem Ramesh - Last Filed: 12/30/16 05:40> Physical Exam Vital Signs Reviewed: Yes Temperature: Afebrile Blood Pressure: Hypertensive Pulse: Regular Respiratory Rate: Normal Appearance: Positive for: Non-Toxic Pain Distress: Mild Mental Status: No: Alert and Oriented X 3 (AOx 2 (not time)) - Systems Exam Head: Present: Atraumatic, Normocephalic Pupils: Present: Other (mydriatic). No: Pinpoint Extroacular Muscles: Present: EOMI Mouth: Present: Moist Mucous Membranes, Normal Lips Nose (External): Present: Atraumatic Neck: Present: Normal Range of Motion Respiratory/Chest: Present: Clear to Auscultation, Good Air Exchange. No: Respiratory Distress, Accessory Muscle Use Cardiovascular: Present: Regular Rate and Rhythm, Normal S1, S2. No: Murmurs Abdomen: Present: Distention, Normal Bowel Sounds, Other (Midline scar-well healed). No: Tenderness, Peritoneal Signs, Hernias Back: Present: Normal Inspection. No: Midline Tenderness, Paraspinal Tenderness Upper Extremity: Present: Normal Inspection, Tenderness (right wrist with flexion). No: Cyanosis, Edema Lower Extremity: Present: Normal Inspection, Other (well healed B/L knee scars) . No: Edema Neurological: Present: GCS=15, CN II-XII Intact. No: Speech Normal (slurred) Skin: Present: Warm, Dry, Normal Color. No: Rashes Psychiatric: Present: Alert, Suicidal Ideation. No: Oriented x 3 <Belem Ramesh - Last Filed: 12/30/16 05:40> Vital Signs Temp Pulse Resp BP Pulse Ox 12/30/16 03:49 92 H 17 105/72 95 12/29/16 23:33 98.4 F 89 18 133/95 H 97 Medical Decision Making <Jason Bentley - Last Filed: 12/30/16 00:21> <Belem Ramesh - Last Filed: 12/30/16 05:40> ED Course and Treatment: Impression: Pt seen and evaluated with internist medical doctor md. Pt, whose past medical history includes alcohol abuse, COPD, substance abuse, depression, and liver cancer, presented for alcohol intoxication. Pt states he fell while walking and injured his right wrist. Pt also reports auditory hallucinations. Aware and agree with HPI, clinical findings, plan, and management. Plan: -- EKG -- Chest X-ray, XR Right Wrist -- Labs, alcohol level -- Urine drug screen -- IV fluids -- Reassess and disposition (Jason Bentley) 12/29/16 23:47 Pt seen/evaluated, will assess for intoxicants, take x-ray of R wrist due to fall/pain, give fluids and do evaluation for suicidal ideation w/PES. 12/30/16 03:35 Pt awake, asking for food. 12/30/16 04:20 Pt asleep, stable 12/30/16 07:[address] Long, pending sobriety, PES evaluation, final disposition. (Belem Ramesh) - Lab Interpretations Lab Results: 12/29/16 23:50 12/29/16 23:50 Lab Results 12/30/16 03:10: Urine Opiates Screen Negative, Urine Methadone Screen Negative, Ur Barbiturates Screen Negative, Ur Phencyclidine Scrn Negative, Ur Amphetamines Screen Negative, U Benzodiazepines Scrn Positive H, U Oth Cocaine Metabols Negative, U Cannabinoids Screen Negative 12/29/16 23:50: WBC 7.7 D, RBC 4.78, Hgb 15.8, Hct 45.2, MCV 94.6, MCH 33.1, MCHC 35.0, RDW 14.3, Plt Count 214, MPV 9.2, Gran % 45.6 L, Lymph % (Auto) 42.0 H, [place] % (Auto) 9.4 H, Eos % (Auto) 2.6, Baso % (Auto) 0.4, Gran # 3.51, Lymph # 3.2, [place] # 0.7 H, Eos # 0.2, Baso # 0.03 12/29/16 23:50: Alcohol, Quantitative 264 H 12/29/16 23:50: Sodium 149 H, Potassium 4.3, Chloride 112 H, Carbon Dioxide 23, Anion Gap 18, BUN 17, Creatinine 1.2, Est GFR ( Amer) > 60, Est GFR (Non- Af Amer) > 60, Random Glucose 83, Calcium 8.7, Phosphorus 4.2, Magnesium 2.0, Total Bilirubin 0.7, AST 57, ALT 36, Alkaline Phosphatase 90, Total Protein 7.6 , Albumin 4.5, Globulin 3.0, Albumin/Globulin Ratio 1.5 - RAD Interpretation Radiology Orders: 12/29/16 23:33 CXR [CHEST PORTABLE] [RAD] Stat WRIST, RIGHT 3 VIEWS [RAD] Stat - Medication Orders Current Medication Orders: Multivitamins/Vitamin C 10 ml/Thiamine HCl 100 mg/ Folic Acid 1 mg/ Sodium Chloride 1,011.2 mls @ 100 mls/hr IV .Q10H7M ONE Stop: 12/30/16 09:39 Last Admin: 12/30/16 00:03 Dose: 100 mls/hr eMAR Start Stop Document 12/30/16 00:03 RD (Rec: 12/30/16 00:04 RD [id number]) Intravenous Solution Start Date 12/30/16 Start Time 00:04 - PA / 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 / has examined the patient and agrees with the treatment plan. <Jason Bentley - Last Filed: 12/30/16 00:21> Disposition/Present on Arrival <Jason Bentley - Last Filed: 12/30/16 00:21> - Present on Arrival Any Indicators Present on Arrival: No History of DVT/PE: No History of Uncontrolled Diabetes: No Urinary Catheter: No History of Decub. Ulcer: No History Surgical Site Infection Following: None - Disposition Have Diagnosis and Disposition been Completed?: No Disposition Time: 07:00 <Belem Ramesh - Last Filed: 12/30/16 05:40> - Disposition Diagnosis: Polysubstance abuse, Alcohol abuse, Depression, Suicidal ideation Patient Problems: Current Active Problems Problem Status Onset Depression Acute Alcohol abuse Acute Suicidal ideation Acute Polysubstance abuse Acute Condition: STABLE Forms: [employer] ([place])
[2016-12-30 00:08] LABS: BASO # 0.03 K/mm3 (0.0-2.0); BASO % 0.4 % (0.0-3.0); EOS # 0.2 (0.0-0.7); EOS % 2.6 % (1.5-5.0); GRAN # 3.51 (1.4-6.5); GRAN % 45.6 % (50.0-68.0); HEMATOCRIT 45.2 % (42.0-52.0); LYMPH # 3.2 (1.2-3.4); MEAN CELL VOLUME 94.6 fl (80.0-105.0); MEAN CORPUSCULAR HEMOGLOBIN 33.1 pg (25.0-35.0); MEAN PLATELET VOLUME 9.2 fl (7.0-11.0); MONO # 0.7 (0.1-0.6); MONO % 9.4 % (1.0-6.0); RED CELL DISTRIBUTION WIDTH 14.3 % (11.5-14.5); WHITE BLOOD COUNT 7.7 10^3/ul (4.5-11.0)
[2016-12-30 00:19] LABS: ALB/GLOB RATIO 1.5 (1.1-1.8); ALKALINE PHOSPHATASE 90 U/L (38-126); ALT/SGPT 36 U/L (7-56); AST/SGOT 57 U/L (17-59); BILIRUBIN,TOTAL 0.7 mg/dL (0.2-1.3); BLOOD UREA NITROGEN 17 mg/dL (7-21); CALCIUM 8.7 mg/dL (8.4-10.5); CARBON DIOXIDE 23 mmol/L (21-33); CHLORIDE 112 mmol/L (98-107); GFR AFRICAN-AMERICAN > 60; GLUCOSE,RANDOM 83 mg/dL (70-110); PHOSPHOROUS 4.2 mg/dL (2.5-4.5); POTASSIUM 4.3 mmol/L (3.6-5.0); SODIUM 149 mmol/L (132-148); TOTAL PROTEIN 7.6 g/dL (5.8-8.3)
--- NOTE | 2016-12-30 11:02 | RAD ---
PROCEDURE: Right Wrist Radiographs. HISTORY: Trauma. Anatomic area of interest: Not specified COMPARISON: None. FINDINGS: BONES: Normal. No fracture. JOINTS: Normal. No dislocation. SOFT TISSUES: Normal. OTHER FINDINGS: None. IMPRESSION: No acute findings related to/accounting for the clinical presentation. Please note: No preliminary report/ innterpretation of this examination provided by emergency department personnel.
--- NOTE | 2016-12-30 11:03 | RAD ---
HISTORY: Trauma. Technique: Single view portable semi erect @ 03:35. COMPARISON: No prior. FINDINGS: LUNGS: No active pulmonary disease. PLEURA: No significant pleural effusion identified, no pneumothorax apparent. CARDIOVASCULAR: No radiographic findings to suggest acute or significant cardiovascular disease. OSSEOUS STRUCTURES: No significant abnormalities. Incompletely visualized severe degenerative changes both shoulders. VISUALIZED UPPER ABDOMEN: Normal. OTHER FINDINGS: None. IMPRESSION: No active disease. Please note: No preliminary report/ innterpretation of this examination provided by emergency department personnel.
[2016-12-30] MEDS ORDERED: Alum-Mag Hydrox-Simethicone Susp (30 mL) PO PRN (15:21)
[2016-12-30] MEDS ORDERED: Magnesium Hydroxide Susp 30 ml UD PO PRN (15:22)
[2016-12-30] MEDS: Divalproex 250 mg DR (BID formulation) PO SCH (16:23)
--- NOTE | 2016-12-30 19:08 | PCM.BM ---
<Ankur Juan - Last Filed: 12/30/16 19:06> Treatment Plan Problems - Problems identified on initial assessmt Depression Date Initiated: 12/30/16 Time Initiated: 19:06 Assessment reference: NA Status: Active Priority: 1 Auditory Hallucinations Date Initiated: 12/30/16 Time Initiated: 19:07 Assessment reference: NA Status: Active Priority: 2 Medication Nonadherence Date Initiated: 12/30/16 Time Initiated: 19:07 Assessment reference: NA Priority: 3 Treatment assets and liabiliti Patient Assests: cooperative, good support system, negotiates basic needs, cognitively intact Patient Liabilities: physical pain, substance abuse - Milieu Protocol Maintain good personal hygiene: daily Encourage regular showers Maintain personal safety: every shift Educate patient to report safety concerns to staff, every shift Monitor environment for contraband/sharps Medication safety: Monitor for expected outcome, potential side effects: every shift, Assess barriers to learning: every shift, Assess readiness for medication education: every shift Discharge/Continuing Care - Education Needs Education Needs: Patient Medication, Patient Diagnosis/Disease Process, Patient Coping Skills - Discharge Discharge Criteria: Tolerates medication w/o severe side effects Discharge to:: Home <Amelia Howe - Last Filed: 12/31/16 10:36> - Diagnosis (1) Polysubstance abuse Status: Acute Interventions: 12/31/16 10:36 Monitoring withdrawal symptoms Medical detoxification Pharmacotherapy for alcohol/benzos/opioid dependence Maintaining sobriety Relapse prevention Possible rehabilitation Motivational interviewing 12-step programs: AA meetings (2) Bipolar disorder with psychotic features Status: Acute Interventions: 12/31/16 10:37 Psychoeducation Psychopharmacology/adjustment of medications as needed/ monitoring possible side effects Monitor blood level of mood stabilizers Evaluate pt on daily basis Compliance with medications and follow up appointments Suicide and homicide risk assessment and prevention, coping strategies, safety plan Relapse prevention Reduction of symptoms Improve functional status Family involvement As outpatient: cognitive behavioral therapy <Lili Santillan - Last Filed: 12/31/16 14:00>
--- NOTE | 2016-12-30 19:39 | CARD ---
APPROVED REPORT EKG Measurement Heart [id number] <Conclusion> Normal sinus rhythm Possible Left atrial enlargement Cannot rule out Anterior infarct, age undetermined Abnormal ECG
[2016-12-31 07:48] LABS: CHOLESTEROL 127 mg/dL (130-200); GLUCOSE,FASTING 90 mg/dL (65-110)
[2016-12-31 08:05] LABS: FREE T4 0.89 ng/dL (0.78-2.19)
[2016-12-31 08:19] LABS: THYROID STIMULATING HORMONE 1.19 mIU/mL (0.46-4.68)
[2016-12-31] MEDS: Multivitamin With Minerals Tab PO SCH (08:47)
[2016-12-31] MEDS: Divalproex 250 mg DR (BID formulation) PO SCH ×2 (08:48→16:40)
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
--- NOTE | 2017-01-01 02:31 | CON ---
DATE: CHIEF COMPLAINT: Intoxication, fall, and pain in the right wrist. HISTORY OF PRESENT ILLNESS: Mr. Eber Lo is a 61-year-old male with history of ethanol abuse, COPD, substance abuse, depression, history of suicidal ideation, liver cancer evaluated for alcohol intoxication. The patient reports that his threw him out, he was sleeping outside, drinking 5 pints of vodka and lots of beers. When he tried to get up to walk, he fell hurting his right wrist. There is localized only with fracture and no radiation. The patient reports that he took 40 Xanax with intention to committing suicide, admits to headache , blurring of his vision, states that he is hearing voices that tells him to kill himself. Denies nausea or vomiting, shortness of breath, chest pain, constipation, diarrhea and others. I saw the patient on the Psychiatric Department sitting on the wheelchair. PAST MEDICAL HISTORY: As above, substance abuse, depression, COPD, history of ethanol abuse and liver cancer. PAST SURGICAL HISTORY: Ventral hernia repair. HABITS: He admits to tobacco use a lot. He admits to ethanol abuse, states he drinks 5 pints of vodka and lots of beer. He admits to taking 40 Xanax with intension to commit suicide. He admits to cocaine use yesterday. He admits to sexual activity with several girlfriends. REVIEW OF SYSTEMS: The patient is seen and examined on the bedside in the Psychiatric Department, looking comfortable. No headache or dizziness. He is complaining of right wrist pain. No shortness of breath. No nausea, vomiting or diarrhea. No hematuria or hematochezia. No chest pain or palpitation. ALLERGIES: THE PATIENT IS ALLERGIC TO BANANAS AND TEA TREES. PHYSICAL EXAMINATION: VITAL SIGNS: Temperature of 99.2, pulse of 87, blood pressure of 113/87 and respiratory rate of 17. HEENT: Head normocephalic and atraumatic. Eyes: PERRLA. Extraocular muscles are intact. Conjunctivae are clear. Nose is patent. Mucous membranes are moist. NECK: Supple. No carotid bruits. No JVD or thyromegaly. CHEST: Bilaterally symmetrical. HEART: S1 and S2 positive. LUNGS: Clear to auscultation. ABDOMEN: Soft. Bowel sounds present. No organomegaly. EXTREMITIES: No edema. No cyanosis. NEUROLOGICAL: The patient is awake and alert. Moving all four extremities. No focal deficits. LABORATORY DATA: White blood cells of 7.7, hemoglobin of 15.8, hematocrit of 45.2 and platelets of 214. Sodium of 149, potassium of 4.3, BUN of 17, and creatinine of 1.2. Cholesterol of 127 and HDL of 53. ASSESSMENT AND PLAN: Mr. Wally Velázquez is a 61-year-old male with hypernatremia and hyperchloremia. Benzodiazepine toxicology screen shows benzodiazepine positive, alcohol level 264, and RPR nonreactive. History of ethanol abuse and after that he had fall, chronic obstructive pulmonary disease, history of liver cancer, arthritis, history of fracture claimed of multiple surgeries mostly orthopedic, liver cancer, prostate problem, bipolar depression, schizophrenia, substance abuse, appendectomy, right knee surgery, kidney surgeries and kidney stones. The patient admitted to Psychiatric floor. Dr. Howe is treating psychiatric problem. Ativan given, started on medications. We will give Lidoderm patch and thiamine started. We will follow up. Cristina Ellison MD [facility]
[2017-01-01] MEDS: Multivitamin With Minerals Tab PO SCH (08:36)
[2017-01-01] MEDS: Divalproex 250 mg DR (BID formulation) PO SCH ×2 (08:36→17:41)
[2017-01-01] MEDS: Lidocaine 5% Patch TOP SCH (08:36)
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
[2017-01-02] MEDS: Divalproex 250 mg DR (BID formulation) PO SCH ×2 (08:24→18:16)
[2017-01-02] MEDS: Multivitamin With Minerals Tab PO SCH (08:24)
[2017-01-02] MEDS: Lidocaine 5% Patch TOP SCH (08:24)
[2017-01-02] MEDS: Lidocaine 5% Patch TD SCH (12:48)
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
[2017-01-03 07:53] LABS: HEMATOCRIT 43.1 % (42.0-52.0); MEAN CELL VOLUME 92.7 fl (80.0-105.0); MEAN CORPUSCULAR HGB CONC 34.6 g/dl (31.0-37.0); MEAN PLATELET VOLUME 9.4 fl (7.0-11.0); RED CELL DISTRIBUTION WIDTH 13.7 % (11.5-14.5)
[2017-01-03 08:04] LABS: BLOOD UREA NITROGEN 25 mg/dL (7-21); CARBON DIOXIDE 26 mmol/L (21-33); CHLORIDE 107 mmol/L (95-110); GFR AFRICAN-AMERICAN > 60; GLUCOSE,RANDOM 88 mg/dL (70-110); POTASSIUM 4.5 mmol/L (3.6-5.0); SODIUM 142 mmol/L (132-148)
[2017-01-03] MEDS: Divalproex 250 mg DR (BID formulation) PO SCH ×2 (09:02→16:07)
[2017-01-03] MEDS: Multivitamin With Minerals Tab PO SCH (09:02)
[2017-01-03] MEDS: Lidocaine 5% Patch TD SCH (09:03)
[2017-01-03] MEDS: Lidocaine 5% Patch TOP SCH (09:03)
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
[2017-01-04] MEDS: Divalproex 250 mg DR (BID formulation) PO SCH ×2 (08:30→15:24)
[2017-01-04] MEDS: Lidocaine 5% Patch TD SCH (08:30)
[2017-01-04] MEDS: Lidocaine 5% Patch TOP SCH (08:30)
[2017-01-04] MEDS: Multivitamin With Minerals Tab PO SCH (08:30)
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
[2017-01-05 06:44] VITALS: O2SAT 96
--- NOTE | 2017-01-05 08:58 | PCM.PYCHPN ---
Psychiatric Progress Note - Psychiatric Progress Note Patient seen today, length of contact: 25 minutes Patient Chief Complaint: better Problems Identified/Issues Discussed: I reviewed assessment and recent notes. I met with patient in his room and in the hallway. Patient appears fairly groomed and speech is coherent. He is alert and oriented to month, year location, circumstances. Generally pleasant calm and friendly during our interview. Patient reports that he is feeling better and denies any new concerns except for continued pain in his right wrist secondary to fall [employer]. Thought process is fairly coherent. . Denies any new pain or discomfort and tolerating his current prescribed medications well. Staff notes indicate that patient has been oriented, coherent and appears to be improving. There were no behavioral issues over the weekend. Diagnostic Results: bipolar disorder, most recent episode mixed with psychosis r/o schizoaffective disorder bipolar type polysubstance abuse and dependence Medication Change: No ( ) Medical Record Reviewed: Yes Mental Status Examination - Cognitive Function Attention: WNL - Mood Mood: Depressed (better) - Affect Affect: Constricted (more reactive, pleasant) - Speech Speech: Appropriate - Formal Thought Process Formal Thought Process: No Impairment - Suicidal Ideation Suicidal Ideation: No - Homicidal Ideation Homicidal Ideation: No Goal/Treatment Plan - Goal/Treatment Plan Need for Continued Stay: Remain at risks for inpatient hospitalization, Severe depression anxiety, Discharge may exacerbated symptoms, Severe functional impairment Progress Toward Problem(s) and Goals/Treatment Plan: * c/w current tx and plan * No new weekend labs thus far * Vitals reviewed and noted below: Selected Entries 01/04/17 01/04/17 07:05 15:00 Temperature 98.4 F Pulse Rate 79 91 H Respiratory 18 Rate Blood Pressure 119/78 129/82 Estimated Date of D/C: 01/07/17 (will monitor closely)
[2017-01-05] MEDS: Multivitamin With Minerals Tab PO SCH (09:03)
[2017-01-05] MEDS: Divalproex 250 mg DR (BID formulation) PO SCH ×2 (09:03→17:57)
[2017-01-05] MEDS: Lidocaine 5% Patch TOP SCH (09:04)
[2017-01-05] MEDS: Lidocaine 5% Patch TD SCH (09:06)
--- NOTE | 2017-01-06 01:41 | PN ---
DATE: SUBJECTIVE: The patient is a 61-year-old male. The patient was seen and examined on the bedside, looking comfortable. No nausea, vomiting, or diarrhea. No hematuria or hematochezia. No swelling of the leg. No chest pain, no palpitation. No headache, no dizziness. PHYSICAL EXAMINATION: VITAL SIGNS: Temperature 97.8, pulse 65, blood pressure 117/70, and respiratory rate 18. HEENT: Head, normocephalic and atraumatic. Eyes, PERRLA. Extraocular muscles are intact. Conjunctivae are clear. Nose is patent. Mucous membranes are moist. NECK: Supple. No carotid bruits. No JVD or thyromegaly. CHEST: Bilaterally symmetrical. HEART: S1 and S2 positive. LUNGS: Clear to auscultation. ABDOMEN: Soft. Bowel sounds are positive. No organomegaly. EXTREMITIES: No edema. No cyanosis. NEUROLOGIC: The patient is awake and alert. Moving all four extremities. No focal deficits. MEDICATIONS: Ativan, Depakote, trazodone, folic acid, Geodon, Lidoderm, Maalox, milk of magnesia, Seroquel, multivitamins, Tylenol, vitamin B1. I will make tapering dose of Ativan. LABORATORY DATA: We do not have recent labs today, but I reviewed old labs. ASSESSMENT AND PLAN: Mr. Eber Lo, 61-year-old male with multiple medical problems. He has bipolar disorder, most recent episode mixed with psychosis. Schizophrenia disorder, bipolar type and polysubstance abuse and dependency. Chronic obstructive pulmonary disease and hypertension. He has a history of ethanol abuse. Came with alcohol level 264, getting tapering dose of the Ativan, benign prostatic hypertrophy, and asthma. GI and DVT prophylaxis. Repeat labs. We will follow with you. Cristina Ellison MD MTDD
[2017-01-06] MEDS: Divalproex 500 mg DR(BID formulation) PO SCH ×2 (08:46→15:43)
[2017-01-06] MEDS: Multivitamin With Minerals Tab PO SCH (08:46)
[2017-01-06] MEDS: Lidocaine 5% Patch TOP SCH (08:47)
[2017-01-06] MEDS: Lidocaine 5% Patch TD SCH (08:48)
--- NOTE | 2017-01-06 08:59 | PCM.PYCHPN ---
Psychiatric Progress Note - Psychiatric Progress Note Patient seen today, length of contact: 25 minutes Patient Chief Complaint: better Problems Identified/Issues Discussed: I reviewed recent notes and met with patient in his room. Patient appears groomed and speech is coherent. He is alert and oriented to month, year location, circumstances. Generally pleasant, calm and friendly during our interview. Communicates easily. Patient reports that he is feeling better and denies any new concerns except for continued pain in his right wrist secondary to fall [employer]ACH[employer]. Indicates his "backside" is feeling better. Thought process is coherent. Denies any other new pain or discomfort and he is tolerating his currently prescribed medications well. Staff notes indicate that patient has been oriented, coherent and appears to be improving. Affect is brighter and patient is interactive. There were no behavioral issues over the weekend. Diagnostic Results: bipolar disorder, most recent episode mixed with psychosis r/o schizoaffective disorder bipolar type polysubstance abuse and dependence Medication Change: Yes (tapered ativan prn) Medical Record Reviewed: Yes Mental Status Examination - Cognitive Function Orientation: Person, Place, Situation Attention: WNL Concentration: WNL - Mood Mood: Depressed (better) - Affect Affect: Constricted (more reactive, pleasant) - Speech Speech: Appropriate - Formal Thought Process Formal Thought Process: No Impairment - Suicidal Ideation Suicidal Ideation: No - Homicidal Ideation Homicidal Ideation: No Goal/Treatment Plan - Goal/Treatment Plan Need for Continued Stay: Remain at risks for inpatient hospitalization, Severe depression anxiety, Discharge may exacerbated symptoms, Severe functional impairment Progress Toward Problem(s) and Goals/Treatment Plan: * c/w current tx and plan * Appreciate f/u by Dr. Ellison on 01/05/17~repeat labs * Tapered ativan to 1 mg q12 prn on 01/06/17, patient only needed one dose of 1.5 mg on 01/04/17 and VSS. * No new weekend labs thus far * Vitals reviewed and noted below: Selected Entries 01/05/17 01/05/17 06:43 18:07 Temperature 97.8 F Pulse Rate 85 83 Respiratory 18 Rate Blood Pressure 117/70 119/80 Estimated Date of D/C: 01/07/17 (will monitor closely)
[2017-01-06] MEDS: Apap-Butalbital-Caffeine 325-50-40mg Tab PO SCH (11:58)
--- NOTE | 2017-01-06 23:29 | PN ---
DATE: SUBJECTIVE: The patient is a 61-year-old male. The patient seen and examined on the bedside, looking comfortable, suffering, complaining about headache, at home he used to use Fioricet. Back pain getting better. No dizziness. Still has headache. PHYSICAL EXAMINATION: VITAL SIGNS: Temperature 97.8, pulse 77, blood pressure 120/80 , respiratory rate 18. HEENT: Head, normocephalic and atraumatic. Eyes, PERRLA. Extraocular muscles are intact. Conjunctivae are clear. Nose is patent. Mucous membranes are moist. NECK: Supple. No carotid bruits. No JVD or thyromegaly. CHEST: Bilaterally symmetrical. HEART: S1 and S2 positive. LUNGS: Clear to auscultation. ABDOMEN: Soft. Bowel sounds are positive. No organomegaly. EXTREMITIES: No edema. No cyanosis. NEUROLOGIC: The patient is awake and alert. Moving all four extremities. No focal deficits. LABORATORY DATA: We do not have recent lab today, but I have reviewed old labs. MEDICATIONS: Ativan, Depakote, trazodone, Fioricet, folic acid, Geodon, Lidoderm, Maalox, milk of magnesia, Seroquel, Tylenol, vitamin B1. ASSESSMENT AND PLAN: Mr. Eber Lo is a 61-year-old male with history of bipolar disorder, most recent episode mixed with psychosis. Schizoaffective disorder, bipolar type and polysubstance abuse with dependency. Getting tapering dose of Ativan. History of ethanol abuse, now complaining about migraine, give a dose of Fioricet. Has multiple medical problems, chronic obstructive pulmonary disease, hypertension. Psychiatrist is on the case. Gastrointestinal and deep venous thrombosis prophylaxis. Repeat labs. We will follow up. Cristina Ellison MD MTDEloise
[2017-01-07 06:51] VITALS: BP 102/62; PULSE 75; RESP 20; TEMP 97.7
[2017-01-07] MEDS: Lidocaine 5% Patch TOP SCH (08:04)
[2017-01-07] MEDS: Divalproex 500 mg DR(BID formulation) PO SCH (08:05)
[2017-01-07] MEDS: Apap-Butalbital-Caffeine 325-50-40mg Tab PO SCH (08:05)
[2017-01-07] MEDS: Multivitamin With Minerals Tab PO SCH (08:05)
[2017-01-07] MEDS: Lidocaine 5% Patch TD SCH (08:08)
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
--- NOTE | 2017-01-08 03:34 | PN ---
DATE: SUBJECTIVE: The patient is a 61-year-old male. The patient is seen and examined on the bedside, looking comfortable. No nausea, vomiting, diarrhea. No hematuria or hematochezia. No swelling of the legs. No chest pain. No palpitation. PHYSICAL EXAMINATION: VITAL SIGNS: Temperature 97.7, pulse 75, blood pressure 102/62, respiratory rate 20. HEENT: Head; normocephalic and atraumatic. Eyes: PERRLA. Extraocular muscles intact. Conjunctivae clear. Nose patent. NECK: Supple. No carotid bruits. No JVD or thyromegaly. CHEST: Bilaterally symmetrical. HEART: S1 and S2 positive. LUNGS: Clear to auscultation. ABDOMEN: Soft. Bowel sounds positive. No organomegaly. EXTREMITIES: No edema. No cyanosis. NEUROLOGICAL: The patient is awake and alert. Moving all 4 extremities. No focal deficits. MEDICATIONS: Ativan, Depakote, trazodone, Fioricet, folic acid, Geodon, Lidoderm patch, Maalox, milk of magnesia, Seroquel, multivitamin, Tylenol, thiamine. ASSESSMENT AND PLAN: Mr. Eber Lo is a 61-year-old male who was admitted in the psych floor, has history of bipolar, episode mixed with psychosis, schizoaffective disorder, history of polysubstance abuse, ethanol abuse. Got tapering dose of Ativan by the psychiatrist. Fioricet was given for migraine. Very happy to go home. I saw him early in the morning and promised to be followed up as outpatient. Cristina Ellison MD
== END 2017-01-07 16:25 | disposition home or self-care (01) | DRG 885 ==
LOC: ED 23:11 → ERH 12-30 10:27 → PSYC 12-30 14:11
PROVIDERS: ADMIT Psychiatry & Neurology Psychiatry; ATTEND Psychiatry & Neurology Psychiatry
PROC: GZ3ZZZZ Medication Management (ICD-10-PCS; principal; 2016-12-30)
DX: F31.64 Bipolar disorder, current episode mixed, severe, with psychotic features (principal); T42.4X2A Poisoning by benzodiazepines, intentional self-harm, initial encounter; F10.239 Alcohol dependence with withdrawal, unspecified; E87.0 Hyperosmolality and hypernatremia; E87.8 Other disorders of electrolyte and fluid balance, not elsewhere classified; F19.20 Other psychoactive substance dependence, uncomplicated; F10.229 Alcohol dependence with intoxication, unspecified; Y90.8 Blood alcohol level of 240 mg/100 ml or more; J44.9 Chronic obstructive pulmonary disease, unspecified; N40.1 Benign prostatic hyperplasia with lower urinary tract symptoms; R35.0 Frequency of micturition; I10 Essential (primary) hypertension; G43.909 Migraine, unspecified, not intractable, without status migrainosus; G47.00 Insomnia, unspecified; Z91.14 Patient's other noncompliance with medication regimen; F17.210 Nicotine dependence, cigarettes, uncomplicated; M25.531 Pain in right wrist; W18.30XA Fall on same level, unspecified, initial encounter; Y93.01 Activity, walking, marching and hiking; Y92.9 Unspecified place or not applicable; Z85.05 Personal history of malignant neoplasm of liver; Z91.5 Personal history of self-harm; Z87.442 Personal history of urinary calculi; Z90.49 Acquired absence of other specified parts of digestive tract

== ENCOUNTER 2017-01-31 19:30 | Inpatient (IN) | payer MEDICARE, OTHER ==
[2017-01-31 19:30] VITALS: BMI 28.1
--- NOTE | 2017-01-31 20:07 | ED PDOC ---
Arrival/HPI - General Chief Complaint: Psychiatric Evaluation Time Seen by Provider: 01/31/17 19:53 Historian: Patient - History of Present Illness Narrative History of Present Illness (Text): 01/31/17 20:07 A 61 year old male presents to the emergency department complaining of suicidal ideation. Patient admits to drinking alcohol, taking drugs and pills at 09:30 this morning, including 3 pints of liquor, 8 vicodin, 8 xanax, 6 ambien and cocaine. Patient denies any pain or discomfort at this time. Patient denies any fever, chills, nausea, vomiting, abdominal pain, chest pain, shortness of breath or any other complaints. Time/Duration: Other (today) Past Medical History - Provider Review Nursing Documentation Reviewed: Yes - Infectious Disease Hx of Infectious Diseases: None - Tetanus Immunization Tetanus Immunization: Unknown - Cardiac Hx Hypertension: Yes - Pulmonary Hx Chronic Obstructive Pulmonary Disease (COPD): Yes - Neurological Hx Neurological Disorder: No Hx Alzheimer's Disease: No HX Cerebrovascular Accident: No Hx Dementia: No Hx Dizziness: No Hx Meningitis: No Hx Migraine: No Hx Multiple Sclerosis: No Hx Paralysis: No Hx Parkinson's Disease: No Hx Seizures: No Hx Syncope: No Hx Transient Ischemic Attacks (TIA): No Hx Vertigo: No - HEENT Hx HEENT Disorder: No Hx Cataracts: No Hx Deafness: No Hx Difficulty Chewing: No Hx Epistaxis: No Hx Glaucoma: No Hx Macular Degeneration: No - Renal Hx Renal Disorder: No Hx Dialysis: No Hx Kidney Stones: No Hx Neurogenic Bladder: No Hx Pyelonephritis: No Hx Renal Cancer: No Hx Renal Failure: No - Endocrine/Metabolic Hx Endocrine Disorders: No Hx Adrenal Cancer: No Hx Diabetes Insipidus: No Hx Diabetes Mellitus Type 1: No Hx Diabetes Mellitus Type 2: No Hx Hyperthyroidism: No Hx Hypothyroidism: No Hx Systemic Lupus Erythematosus: No - Hematological/Oncological Hx Blood Disorders: Yes Hx AIDS: No Hx Anemia: No Hx Blood Transfusions: No Hx Blood Transfusion Reaction: No Hx Bruising: No Hx Cancer: Yes (liver) Hx Chemotherapy: No Hx Cirrhosis: No Hx Gum Bleeding: No Hx Hemophilia: No Hx Hepatitis A: No Hx Hepatitis B: No Hx Hepatitis C: No Hx Leukemia: No Hx Lymphoma: No Hx Metastasis: No Hx Shingles: No Hx Sickle Cell Trait: No Hx Sickle Cell Disease: No Hx Unexplained Bleeding: No Hx von Willebrand's Disease: No - Integumentary Hx Dermatological Disorder: No Hx Basal Cell Carcinoma: No Hx Madrigal: No Hx Cellulitis: No Hx Eczema: No Hx Melanoma: No Hx Psoriasis: No Hx Squamous Cell Carcinoma: No - Musculoskeletal/Rheumatological Hx Arthritis: Yes Hx Rheumatoid Arthritis: Yes - Gastrointestinal Hx Gastrointestinal Disorders: Yes Hx Bowel Surgery: No Hx Clostridium Difficile: No Hx Colitis: No Hx Colostomy: No Hx Constipation: No Hx Crohn's Disease: No Hx Diarrhea: No Hx Diverticulitis: No Hx Esophageal Varices: No Hx Fatty Liver Disease: No Hx Gall Bladder Disease: No Hx Gastritis: No Hx Gastroesophageal Reflux: No Hx Hemorrhoids: No Hx Ileostomy: No Hx Irritable Bowel: No Hx Liver Failure: Yes (liver cancer) Hx Nausea: No Hx Pancreatitis: No HX Swallowing Problems: No Hx Vomiting: No - Genitourinary/Gynecological Hx Bladder Cancer: No Hx Bladder Stone: No Hx Hematuria: No Hx Prostate Problems: (?) Hx Sexually Transmitted Diseases: No - Psychiatric Hx Psychophysiologic Disorder: No Hx Anxiety: Yes Hx Bipolar Disorder: Yes Hx Depression: Yes Hx Emotional Abuse: No Hx Physical Abuse: No Hx Schizophrenia: Yes Hx Sexual Abuse: No Hx Substance Use: Yes - Past Surgical History Past Surgical History: Unable to Obtain - Surgical History Hx Abdominal Aortic Aneurysm Repair: No Hx Amputation: No Hx Angiogram: No Hx Angioplasty: No Hx Appendectomy: Yes Hx Arteriovenous Shunt: No Hx Cataract Extraction: No Hx Cardiac Catheterization: No Hx Carotid Endarterectomy: No Hx Cholecystectomy: No Hx Coronary Artery Bypass Graft: No Hx Coronary Stent: No Hx Eye Surgery: No Hx Femoral-Popliteal Bypass Graft: No Hx Gastric Bypass Surgery: No Hx Kidney Transplant: No Hx Liver Transplant: No Hx Musculoskeletal Surgery: Yes Hx Open Heart Surgery: No Hx Open Reduction Internal Fixation: No Hx Orthopedic Surgery: Yes (right knee) Hx Parathyroidectomy: No Hx Penile Implant: No Hx Pulmonary Surgery: No Hx Splenectomy: No Hx Thyroidectomy: No Hx Valve Replacement: No Hx Vascular Surgery: No Hx Vascular Access Device: No Other/Comment: nose/face/kidney stones - Anesthesia Hx Anesthesia: Yes Hx Anesthesia Reactions: No Hx Malignant Hyperthermia: No - Suicidal Assessment Feels Threatened In Home Enviroment: No Family/Social History - Physician Review Nursing Documentation Reviewed: Yes Family/Social History: No Known Family HX Smoking Status: Current Some Days Smoker Hx Alcohol Use: Yes Hx Substance Use: Yes Substance used: heroine Hx Substance Use Treatment: Yes ([place] 29 days 27 years ago) Allergies/Home Meds Allergies/Adverse Reactions: Allergies banana Allergy (Verified 01/31/17 19:47) ANAPHYLAXIS tea tree Allergy (Verified 01/31/17 19:47) ANAPHYLAXIS Home Medications: Home Meds Medication Instructions Recorded Confirmed Unobtainable 01/31/17 01/31/17 Review of Systems - Review of Systems Constitutional: absent: Fevers, Night Sweats Respiratory: absent: SOB Cardiovascular: absent: Chest Pain Gastrointestinal: absent: Abdominal Pain, Nausea, Vomiting Psychiatric: Suicidal Ideation Physical Exam Vital Signs Reviewed: Yes Vital Signs Temp Pulse Resp BP Pulse Ox 01/31/17 19:47 97.1 F L 83 16 122/74 95 Temperature: Afebrile Blood Pressure: Normal Pulse: Regular Respiratory Rate: Normal Appearance: Positive for: Comfortable, Unkept Pain Distress: None - Systems Exam Head: Present: Atraumatic, Normocephalic Pupils: Present: PERRL Extroacular Muscles: Present: EOMI Conjunctiva: Present: Normal Mouth: Present: Moist Mucous Membranes Neck: Present: Normal Range of Motion Respiratory/Chest: Present: Clear to Auscultation, Good Air Exchange. No: Respiratory Distress, Accessory Muscle Use Cardiovascular: Present: Regular Rate and Rhythm, Normal S1, S2. No: Murmurs Abdomen: Present: Normal Bowel Sounds. No: Tenderness, Distention, Peritoneal Signs Back: Present: Normal Inspection Upper Extremity: Present: Normal Inspection. No: Cyanosis, Edema Lower Extremity: Present: Normal Inspection. No: Edema Skin: Present: Warm, Dry, Normal Color. No: Rashes Psychiatric: Present: Suicidal Ideation Medical Decision Making ED Course and Treatment: 01/31/17 20:06 Impression: A 61 year old male with suicidal ideation Plan: -- Chest xray -- EKG -- Labs -- Urinalysis -- IV fluids -- Reassess and disposition Progress Notes: EKG shows NSR at [address]-segment elevations, normal intervals, normal axis. Interpreted by me. 01/31/17 22:32 Discussed case with Poison ControlÁlvaro, to repeat the tylenol and LFTs in 4 hours and supportive care. Repeat due at 12:20am. No other treatment at this time. PES evaluated patient but were unable to make an assessment because patient is still intoxicated. Case signed out to Dr. Petit to follow up repeat labs, and PES. - Lab Interpretations Lab Results: 01/31/17 20:20 01/31/17 20:20 Lab Results 01/31/17 20:37: Urine Opiates Screen Negative, Urine Methadone Screen Negative, Ur Barbiturates Screen Negative, Ur Phencyclidine Scrn Negative, Ur Amphetamines Screen Negative, U Benzodiazepines Scrn Negative, U Oth Cocaine Metabols Negative, U Cannabinoids Screen Negative 01/31/17 20:37: Urine Color Yellow, Urine Appearance Clear, Urine pH 6.0, Ur Specific [place] <= 1.005, Urine Protein Negative, Urine Glucose (UA) Negative, Urine Ketones Negative, Urine Blood Small H, Urine Nitrate Negative, Urine Bilirubin Negative, Urine Urobilinogen 0.2, Ur Leukocyte Esterase Negative, Urine RBC 1 - 3, Urine WBC 1 - 3, Ur Epithelial Cells 1 - 3 01/31/17 20:20: Alcohol, Quantitative 235 H 01/31/17 20:20: Salicylates < 1 L, Acetaminophen < 10.0 L 01/31/17 20:20: Sodium 146, Potassium 4.1, Chloride 108 H, Carbon Dioxide 26, Anion Gap 16, BUN 13, Creatinine 1.1, Est GFR ( Amer) > 60, Est GFR (Non- Af Amer) > 60, Random Glucose 88, Calcium 9.6, Total Bilirubin 0.9, AST 61 H, ALT 51, Alkaline Phosphatase 50, Total Creatine Kinase 191, Total Protein 8.7 H , Albumin 5.0 H, Globulin 3.7, Albumin/Globulin Ratio 1.4 01/31/17 20:20: WBC 7.3 D, RBC 5.17, Hgb 17.1 D, Hct 48.2, MCV 93.2, MCH 33.1 , MCHC 35.5, RDW 13.8, Plt Count 180, MPV 9.4, Gran % 48.9 L, Lymph % (Auto) 37.7 H, Rains % (Auto) 10.5 H, Eos % (Auto) 2.3, Baso % (Auto) 0.6, Gran # 3.55, Lymph # 2.7, Rains # 0.8 H, Eos # 0.2, Baso # 0.04 I have reviewed the lab results: Yes Interpretation: Abnormal lab values (elevated alcohol level.) - RAD Interpretation Radiology Orders: 01/31/17 20:07 CHEST PORTABLE [RAD] Stat - Medication Orders Current Medication Orders: Sodium Chloride (Sodium Chloride 0.9%) 1,000 mls @ 100 mls/hr IV .Q10H FRANCI Last Admin: 01/31/17 20:54 Dose: 100 mls/hr eMAR Start Stop Document 01/31/17 20:54 YP (Rec: 01/31/17 20:54 YP [id number]) Intravenous Solution Start Date 01/31/17 Start Time 20:54 - Scribe Statement The provider has reviewed the documentation as recorded by the Garryibnick Smith Provider Scribe Attestation: All medical record entries made by the Scribe were at my direction and personally dictated by me. I have reviewed the chart and agree that the record accurately reflects my personal performance of the history, physical exam, medical decision making, and the department course for this patient. I have also personally directed, reviewed, and agree with the discharge instructions and disposition. Disposition/Present on Arrival - Present on Arrival Any Indicators Present on Arrival: No History of DVT/PE: No History of Uncontrolled Diabetes: No Urinary Catheter: No History of Decub. Ulcer: No History Surgical Site Infection Following: None - Disposition Have Diagnosis and Disposition been Completed?: Yes Diagnosis: Suicidal ideation, Alcohol abuse Disposition Time: 22:37 Condition: FAIR Forms: [employer] ([place])
[2017-01-31] MEDS ORDERED: Sodium Chloride 0.9% 1,000 ML IV SCH (20:15)
[2017-01-31 20:38] LABS: BASO # 0.04 K/mm3 (0.0-2.0); BASO % 0.6 % (0.0-3.0); EOS # 0.2 (0.0-0.7); EOS % 2.3 % (1.5-5.0); GRAN # 3.55 (1.4-6.5); GRAN % 48.9 % (50.0-68.0); HEMATOCRIT 48.2 % (42.0-52.0); LYMPH # 2.7 (1.2-3.4); LYMPH % 37.7 % (22.0-35.0); MEAN CELL VOLUME 93.2 fl (80.0-105.0); MEAN CORPUSCULAR HEMOGLOBIN 33.1 pg (25.0-35.0); MEAN CORPUSCULAR HGB CONC 35.5 g/dl (31.0-37.0); MEAN PLATELET VOLUME 9.4 fl (7.0-11.0); MONO # 0.8 (0.1-0.6); MONO % 10.5 % (1.0-6.0); RED CELL DISTRIBUTION WIDTH 13.8 % (11.5-14.5); WHITE BLOOD COUNT 7.3 10^3/ul (4.5-11.0)
[2017-01-31 20:47] LABS: ALB/GLOB RATIO 1.4 (1.1-1.8); ALKALINE PHOSPHATASE 50 U/L (38-126); ALT/SGPT 51 U/L (7-56); AST/SGOT 61 U/L (17-59); BILIRUBIN,TOTAL 0.9 mg/dL (0.2-1.3); BLOOD UREA NITROGEN 13 mg/dL (7-21); CALCIUM 9.6 mg/dL (8.4-10.5); CARBON DIOXIDE 26 mmol/L (21-33); CHLORIDE 108 mmol/L (98-107); GFR AFRICAN-AMERICAN > 60; GLUCOSE,RANDOM 88 mg/dL (70-110); POTASSIUM 4.1 mmol/L (3.6-5.0); SODIUM 146 mmol/L (132-148); TOTAL PROTEIN 8.7 g/dL (5.8-8.3)
[2017-01-31 20:48] LABS: URINE BILIRUBIN NEGATIVE (NEGATIVE); URINE BLOOD SMALL (NEGATIVE); URINE GLUCOSE (UA) NEGATIVE (NEGATIVE); URINE KETONE NEGATIVE (NEGATIVE); URINE LEUKOCYTE ESTERASE NEGATIVE Leu/uL (NEGATIVE); URINE PROTEIN NEGATIVE mg/dL (<30 mg/dL); URINE UROBILINOGEN 0.2 E.U./dL (<1 E.U./dL)
[2017-01-31 21:02] LABS: URINE APPEARANCE CLEAR (CLEAR); URINE COLOR YELLOW (YELLOW)
[2017-02-01 01:21] LABS: ALB/GLOB RATIO 1.4 (1.1-1.8); BILIRUBIN,DIRECT 0.6 mg/dL (0.0-0.4); BILIRUBIN,TOTAL 0.7 mg/dL (0.2-1.3); TOTAL PROTEIN 7.5 g/dL (5.8-8.3)
--- NOTE | 2017-02-01 03:06 | ED PDOC ---
Physical Exam Vital Signs Temp Pulse Resp BP Pulse Ox 02/01/17 01:59 83 18 125/85 95 01/31/17 19:47 97.1 F L 83 16 122/74 95 Medical Decision Making ED Course and Treatment: 01/31/17 23:00 Patient signed out to me by Dr. Moore. Pending repeat Tylenol, LFT levels, and PES evaluation. 02/01/17 03:00 Tylenol and LFT levels are unremarkable. Medically cleared for PES evaluation. PES saw patient and states that he will be admitted to psych for major depression. - Lab Interpretations Lab Results: 01/31/17 20:20 01/31/17 20:20 Lab Results 02/01/17 00:50: Acetaminophen < 10.0 L 02/01/17 00:50: Total Bilirubin 0.7, Direct Bilirubin 0.6 H, AST 51, ALT 56, Alkaline Phosphatase 46, Total Protein 7.5, Albumin 4.3, Globulin 3.1, Albumin/ Globulin Ratio 1.4 01/31/17 20:37: Urine Opiates Screen Negative, Urine Methadone Screen Negative, Ur Barbiturates Screen Negative, Ur Phencyclidine Scrn Negative, Ur Amphetamines Screen Negative, U Benzodiazepines Scrn Negative, U Oth Cocaine Metabols Negative, U Cannabinoids Screen Negative 01/31/17 20:37: Urine Color Yellow, Urine Appearance Clear, Urine pH 6.0, Ur Specific [employer] <= 1.005, Urine Protein Negative, Urine Glucose (UA) Negative, Urine Ketones Negative, Urine Blood Small H, Urine Nitrate Negative, Urine Bilirubin Negative, Urine Urobilinogen 0.2, Ur Leukocyte Esterase Negative, Urine RBC 1 - 3, Urine WBC 1 - 3, Ur Epithelial Cells 1 - 3 01/31/17 20:20: Alcohol, Quantitative 235 H 01/31/17 20:20: Salicylates < 1 L, Acetaminophen < 10.0 L 01/31/17 20:20: Sodium 146, Potassium 4.1, Chloride 108 H, Carbon Dioxide 26, Anion Gap 16, BUN 13, Creatinine 1.1, Est GFR ( Amer) > 60, Est GFR (Non- Af Amer) > 60, Random Glucose 88, Calcium 9.6, Total Bilirubin 0.9, AST 61 H, ALT 51, Alkaline Phosphatase 50, Total Creatine Kinase 191, Total Protein 8.7 H , Albumin 5.0 H, Globulin 3.7, Albumin/Globulin Ratio 1.4 01/31/17 20:20: WBC 7.3 D, RBC 5.17, Hgb 17.1 D, Hct 48.2, MCV 93.2, MCH 33.1 , MCHC 35.5, RDW 13.8, Plt Count 180, MPV 9.4, Gran % 48.9 L, Lymph % (Auto) 37.7 H, [place] % (Auto) 10.5 H, Eos % (Auto) 2.3, Baso % (Auto) 0.6, Gran # 3.55, Lymph # 2.7, [place] # 0.8 H, Eos # 0.2, Baso # 0.04 - RAD Interpretation Radiology Orders: 01/31/17 20:07 CHEST PORTABLE [RAD] Stat - Medication Orders Current Medication Orders: Sodium Chloride (Sodium Chloride 0.9%) 1,000 mls @ 100 mls/hr IV .Q10H FRANCI Last Admin: 01/31/17 20:54 Dose: 100 mls/hr eMAR Start Stop Document 01/31/17 20:54 YP (Rec: 01/31/17 20:54 YP [id number]) Intravenous Solution Start Date 01/31/17 Start Time 20:54 - Scribe Statement The provider has reviewed the documentation as recorded by the Aleksandra Wilson Provider Scribe Attestation: All medical record entries made by the Scribe were at my direction and personally dictated by me. I have reviewed the chart and agree that the record accurately reflects my personal performance of the history, physical exam, medical decision making, and the department course for this patient. I have also personally directed, reviewed, and agree with the discharge instructions and disposition. Disposition/Present on Arrival - Present on Arrival Any Indicators Present on Arrival: No History of DVT/PE: No History of Uncontrolled Diabetes: No Urinary Catheter: No History of Decub. Ulcer: No History Surgical Site Infection Following: None - Disposition Have Diagnosis and Disposition been Completed?: Yes Diagnosis: Suicidal ideation, Alcohol abuse, Major depression Disposition: HOSPITALIZED Disposition Time: 03:00 Patient Plan: Admission Patient Problems: Current Active Problems Problem Status Onset Alcohol abuse Acute Suicidal ideation Acute Condition: FAIR Forms: [employer] ([place])
[2017-02-01] MEDS ORDERED: Alum-Mag Hydrox-Simethicone Susp (30 mL) PO PRN (05:54)
[2017-02-01] MEDS ORDERED: Magnesium Hydroxide Susp 30 ml UD PO PRN (05:54)
--- NOTE | 2017-02-01 06:32 | PCM.BM ---
<Crystal Ulrich - Last Filed: 02/01/17 06:30> Treatment Plan Problems - Problems identified on initial assessmt depression Date Initiated: 02/01/17 Time Initiated: 05:30 Assessment reference: NA Status: Active medication non-compliance Date Initiated: 02/01/17 Time Initiated: 05:30 Assessment reference: NA Status: Active Treatment assets and liabiliti Patient Assests: cooperative, negotiates basic needs, cognitively intact Patient Liabilities: poor support system, relationship conflicts, substance abuse - Milieu Protocol Maintain good personal hygiene: daily Encourage regular showers, daily Remind patient to perform daily oral care, daily Assist patient to perform ADL's Conduct patient checks and document Observation sheet: Q15 minutes Maintain personal safety: every shift Educate patient to report safety concerns to staff, every shift Monitor environment for contraband/sharps Medication safety: Monitor for expected outcome, potential side effects: every shift, Assess barriers to learning: every shift, Assess readiness for medication education: every shift Discharge/Continuing Care - Education Needs Education Needs: Patient Medication, Patient Diagnosis/Disease Process, Patient Coping Skills, Patient Community resources - Discharge Discharge Criteria: Tolerates medication w/o severe side effects, Normal sleep pattern, Ability to care for self <Caitlin Laird - Last Filed: 02/01/17 16:36> Family Contact Family involvement: Famliy/SO not involved <Jaquan Tomlinson - Last Filed: 02/06/17 15:38> - Diagnosis (1) Suicidal ideation Status: Acute Interventions: 02/06/17 15:38 * Assess/adjust medications daily and /or as needed * Discuss risks, benefits, side effects and alternatives of medications * See patient on an individual basis 7x/week to assess level of suicidal thoughts *
--- NOTE | 2017-02-01 07:19 | CP.PCM.CON ---
History of Present Illness - History of Present Illness History of Present Illness: Medicine Consult Note for Dr. Pepe PMD: PMHx: PSurgHx: SocHx: Fam Hx: Meds: ALL: Past Patient History - Infectious Disease Hx of Infectious Diseases: None - Tetanus Immunizations Tetanus Immunization: Unknown - Past Social History Smoking Status: Current Some Days Smoker - CARDIAC Hx Cardiac Disorders: No Hx Hypertension: Yes - PULMONARY Hx Tuberculosis: No - NEUROLOGICAL HX Cerebrovascular Accident: No Hx Seizures: No - HEENT Hx HEENT Problems: No Hx Cataracts: No Hx Deafness: No Hx Difficulty Chewing: No Hx Epistaxis: No Hx Glaucoma: No Hx Macular Degeneration: No - RENAL Hx Chronic Kidney Disease: No Hx Dialysis: No Hx Kidney Stones: No Hx Neurogenic Bladder: No Hx Pyelonephritis: No Hx Renal (Kidney) Cancer: No Hx Renal Failure: No - ENDOCRINE/METABOLIC Hx Endocrine Disorders: No Hx Adrenal Cancer: No Hx Diabetes Insipidus: No Hx Diabetes Mellitus Type 1: No Hx Diabetes Mellitus Type 2: No Hx Hyperthyroidism: No Hx Hypothyroidism: No Hx Systemic Lupus Erythematosus: No - HEMATOLOGICAL/ONCOLOGICAL Hx Cancer: Yes (liver) Hx Human Immunodeficiency Virus (HIV): No - INTEGUMENTARY Hx Dermatological Problems: No Hx Basil Cell: No Hx Madrigal: No Hx Cellulitis: No Hx Eczema: No Hx Melanoma: No Hx Psoriasis: No Hx Squamous Cell: No - MUSCULOSKELETAL/RHEUMATOLOGICAL Hx Arthritis: Yes Hx Rheumatoid Arthritis: Yes - GASTROINTESTINAL Hx Gastrointestinal Disorders: Yes Hx Bowel Surgery: No Hx Clostridium Difficile: No Hx Colitis: No Hx Colostomy: No Hx Constipation: No Hx Crohn's Disease: No Hx Diarrhea: No Hx Diverticulitis: No Hx Esophageal Varices: No Hx Fatty Liver Disease: No Hx Gall Bladder Disease: No Hx Gastritis: No Hx Gastroesophageal Reflux: No Hx Hemorrhoids: No Hx Ileostomy: No Hx Irritable Bowel: No Hx Liver Failure: Yes (liver cancer) Hx Nausea: No Hx Pancreatitis: No HX Swallowing Problems: No Hx Vomiting: No - GENITOURINARY/GYNECOLOGICAL Hx Sexually Transmitted Disorders: No - PSYCHIATRIC Hx Substance Use: Yes - SURGICAL HISTORY Hx Abdominal Aortic Aneurysm Repair: No Hx Amputation: No Hx Angiogram: No Hx Angioplasty: No Hx Appendectomy: Yes Hx Arteriovenous Shunt: No Hx Cataract Extraction: No Hx Cardiac Catheterization: No Hx Carotid Endarterectomy: No Hx Cholecystectomy: No Hx Coronary Artery Bypass Graft: No Hx Coronary Stent: No Hx Eye Surgery: No Hx Femoral-Popliteal Bypass Graft: No Hx Gastric Bypass Surgery: No Hx Kidney Transplant: No Hx Liver Transplant: No Hx Musculoskeletal Surgery: Yes Hx Open Heart Surgery: No Hx Open Reduction Internal Fixation: No Hx Orthopedic Surgery: Yes (right knee) Hx Parathyroidectomy: No Hx Penile Implant: No Hx Pulmonary Surgery: No Hx Splenectomy: No Hx Thyroidectomy: No Hx Valve Replacement: No Hx Vascular Surgery: No Hx Vascular Access Device: No Other/Comment: nose/face/kidney stones - ANESTHESIA Hx Anesthesia: Yes Hx Anesthesia Reactions: No Hx Malignant Hyperthermia: No Meds Allergies/Adverse Reactions: Allergies Allergy/AdvReac Type Severity Reaction Status Date / Time banana Allergy ANAPHYLAXIS Verified 02/01/17 06:55 tea tree Allergy ANAPHYLAXIS Verified 02/01/17 06:55 - Medications Medications: Current Medications Acetaminophen (Tylenol 325mg Tab) 650 mg PO Q4 PRN PRN Reason: Pain, moderate (4-7) Al Hydrox/Mg Hydrox/Simethicone (Maalox Plus 30 Ml) 30 ml PO DAILY PRN PRN Reason: Upset Stomach Sodium Chloride (Sodium Chloride 0.9%) 1,000 mls @ 100 mls/hr IV .Q10H FRANCI Last Admin: 01/31/17 20:54 Dose: 100 mls/hr Magnesium Hydroxide (Milk Of Magnesia) 30 ml PO DAILY PRN PRN Reason: Constipation Results - Vital Signs Recent Vital Signs: Last Vital Signs Temp 97.8 F 02/01/17 05:15 Pulse 73 02/01/17 05:15 Resp 18 02/01/17 05:15 BP 115/80 02/01/17 05:15 Pulse Ox 96 02/01/17 05:15 - Labs Result Diagrams: 01/31/17 20:20 01/31/17 20:20
[2017-02-01 08:16] LABS: CHOLESTEROL 156 mg/dL (130-200); GLUCOSE,FASTING 88 mg/dL (65-110)
--- NOTE | 2017-02-01 08:17 | RAD ---
HISTORY: overdose COMPARISON: Portable chest radiograph 12/30/2016. FINDINGS: LUNGS: No active pulmonary disease. PLEURA: No significant pleural effusion identified, no pneumothorax apparent. CARDIOVASCULAR: Normal. OSSEOUS STRUCTURES: No significant abnormalities. VISUALIZED UPPER ABDOMEN: Normal. OTHER FINDINGS: None. IMPRESSION: No interval acute cardiopulmonary disease appreciated.
--- NOTE | 2017-02-01 16:04 | CARD ---
APPROVED REPORT EKG Measurement Heart [id number] ID [id number] <Conclusion> Normal sinus rhythm Normal ECG
--- NOTE | 2017-02-02 00:44 | CP.PCM.PN ---
Subjective - Date & Time of Evaluation Date of Evaluation: 02/01/17 Time of Evaluation: 05:30 - Subjective Subjective: 61 yr with H/O ETOH abuse, Depression, & R knee surgery i sbeing treated for suicidal ideation. Patient admits to drinking alcohol & taking drugs. Denies any SOB, chest pain, diarrhea, constipation or urinary frequency. No distress noted. Objective - Vital Signs/Intake and Output Vital Signs (last 24 hours): Temp Pulse Resp BP Pulse Ox 97.8 F 73 18 115/80 96 02/01/17 05:15 02/01/17 05:15 02/01/17 05:15 02/01/17 05:15 02/01/17 05:15 - Medications Medications: Current Medications Acetaminophen (Tylenol 325mg Tab) 650 mg PO Q4 PRN PRN Reason: Pain, moderate (4-7) Al Hydrox/Mg Hydrox/Simethicone (Maalox Plus 30 Ml) 30 ml PO DAILY PRN PRN Reason: Upset Stomach Divalproex Sodium (Depakote Dr(*Bid*)) 500 mg PO BID FRANCI Folic Acid (Folic Acid) 1 mg PO DAILY [facility] Sodium Chloride (Sodium Chloride 0.9%) 1,000 mls @ 100 mls/hr IV .Q10H FRANCI Last Admin: 01/31/17 20:54 Dose: 100 mls/hr Lorazepam (Ativan) 1 mg PO TID FRANCI PRN Reason: Protocol Magnesium Hydroxide (Milk Of Magnesia) 30 ml PO DAILY PRN PRN Reason: Constipation Multivitamins/Minerals (Therapeutic-M Tab) 1 tab PO 0800 FRANCI Quetiapine Fumarate (Seroquel) 50 mg PO HS FRANCI PRN Reason: Protocol Last Admin: 02/01/17 21:30 Dose: 50 mg Thiamine HCl (Vitamin B1 Tab) 100 mg PO DAILY FRANCI Trazodone HCl (Desyrel) 50 mg PO HS PRN PRN Reason: Insomnia - Constitutional Appears: No Acute Distress, Unkempt - Head Exam Head Exam: NORMOCEPHALIC - Eye Exam Eye Exam: Normal appearance Pupil Exam: NORMAL ACCOMODATION - ENT Exam ENT Exam: Mucous Membranes Moist - Neck Exam Neck Exam: Full ROM - Respiratory Exam Respiratory Exam: Clear to Ausculation Bilateral, NORMAL BREATHING PATTERN - Cardiovascular Exam Cardiovascular Exam: REGULAR RHYTHM, +S1, +S2 - GI/Abdominal Exam GI & Abdominal Exam: Soft, Normal Bowel Sounds - Extremities Exam Additional comments: R knee edema +3, chronic s/t surgical history - Neurological Exam Neurological Exam: Alert, Awake, Oriented x3 - Psychiatric Exam Psychiatric exam: Normal Affect, Normal Mood - Skin Skin Exam: Normal Color, Warm Additional comments: Moist Assessment and Plan (1) Alcohol abuse Status: Acute (2) Major depression Status: Acute (3) Suicidal ideation Status: Acute (4) Depression Status: Acute (5) Bipolar disorder with psychotic features Status: Chronic (6) Polysubstance abuse Status: Chronic - Assessment and Plan (Free Text) Plan: Patient is stable. Will continue to monitor patient.
[2017-02-02] MEDS: Multivitamin With Minerals Tab PO SCH (10:19)
[2017-02-02] MEDS: Divalproex 500 mg DR(BID formulation) PO SCH ×2 (10:19→16:59)
--- NOTE | 2017-02-02 11:19 | CON ---
DATE: HISTORY OF PRESENT ILLNESS: The patient was seen and examined on 02/01/2017, looking comfortable. Discussion done with nurse practitioner, Izzy. The patient is a 61-year-old male with history of ethanol abuse, depression, right knee surgery, and being treated for suicidal ideation. He has multiple admissions and ER visits because of his drinking problem, taking drug problems, and suicidal and homicidal ideation problem. Psychiatrist is on the case, my nurse practitioner Izzy did progress note for that day, but it is consult, appreciated psychiatrist input. We will followup. Cristina Ellison MD
--- NOTE | 2017-02-02 16:37 | PCM.PYCHPN ---
Psychiatric Progress Note - Psychiatric Progress Note Patient seen today, length of contact: 25 min Patient Chief Complaint: Continues to be depressed but feeling a little better Problems Identified/Issues Discussed: I recent notes and met with patient at bedside.Patient is alert and well- oriented to circumstances. Continues to be depressed but feeling a little better. He doesn't want to and denies any active suicidal thoughts. Thought process is coherent and patient denies hallucinations. Affect is constricted and well related.He is tolerating his medications and denies any new pain or discomfort. Patient reports her that sleep was restless last night. Patient has beenvisible on unit, watching tv with peers and attending groups. There were no major behavioral issues overnight Diagnostic Results: bipolar disorder by hx r/o schizoaffective disorder bipolar type polysubstance abuse and dependence Medication Change: Yes (Seroquel and trazodone increased) Medical Record Reviewed: Yes Mental Status Examination - Cognitive Function Orientation: Person, Place, Situation - Mood Mood: Depressed (Continues to be depressed but feeling a little better) - Affect Affect: Constricted - Speech Speech: Appropriate - Formal Thought Process Formal Thought Process: No Impairment - Homicidal Ideation Homicidal Ideation: No Goal/Treatment Plan - Goal/Treatment Plan Progress Toward Problem(s) and Goals/Treatment Plan: * c/w current tx and plan * c/w Depakote 500 mg po bid, VPA <10 on 02/02/17 * Increase Seroquel to 100 mg HS, titrate to prior dose of 200 mg HS * Increase Trazodone to 100 mg HS * Consider naltrexone in the future, however this medication has been ineffective for alcohol/opiate abstinence in the past * Ativan 1 mg TID, taper as tolerated for alcohol/benzo withdrawal * Vitals reviewed and noted below: Selected Entries 01/31/17 02/01/17 02/01/17 19:47 01:59 05:15 Temperature 97.1 F L 97.8 F Pulse Rate 83 83 73 Respiratory 16 18 18 Rate Blood Pressure 122/74 125/85 115/80 * Weekend labs 02/02/17 06:50 Valproic Acid < 10 L
[2017-02-02] MEDS: Apap-Butalbital-Caffeine 325-50-40mg Tab PO PRN (21:16)
--- NOTE | 2017-02-03 00:08 | PN ---
DATE: SUBJECTIVE: The patient is a 61-years old male. The patient is seen and examined on the bedside, looking comfortable. No nausea. vomiting, or diarrhea. No hematuria or hematochezia. Complaining about headache. No chest pain. No palpitation. No fever, no chills. PHYSICAL EXAMINATION: VITAL SIGNS: Temperature 98.1, pulse 71, blood pressure 98/56, respiratory rate 17. HEENT: Head; normocephalic and atraumatic. Eyes; PERRLA. Extraocular muscles intact. Conjunctivae clear. Nose patent. Mucous membranes moist. NECK: Supple. No carotid bruits, JVD, or thyromegaly. CHEST: Bilaterally symmetrical. HEART: S1 and S2 positive. LUNGS: Clear to auscultation. ABDOMEN: Soft. Bowel sounds present. No organomegaly. EXTREMITIES: No edema. No cyanosis. NEUROLOGIC: The patient is awake and alert. Moving all 4 extremities. No focal deficit. LABORATORY DATA: White blood cells 7.3, hemoglobin 17.1, hematocrit 48.2, platelets 180. Sodium 146, potassium 4.0, BUN 13, creatinine 1.1. AST 61, repeat is 51, ALT 51. MEDICATIONS: Ativan, Depakote, trazodone, folic acid, I started Fioricet, Maalox, mild of magnesia, Seroquel, NS, Tylenol, vitamin B1. ASSESSMENT AND PLAN: Mr. Eber Lo is a 61-year-old male with hyperchloremia, abnormal liver function test, history of ethanol abuse, alcohol level was 235, RPR negative. Admitted on the psych floor by the psychiatrist. History of depression; right knee surgery; migraine, give Fioricet; suicidal ideation; history of drug abuse, noncompliant; major depression; bipolar with psychotic features; polysubstance abuse. We will continue present treatment, Fioricet given. If Fioricet will not work, may be we will call Neurology consult. Gastroenterology and deep venous thrombosis prophylaxis. Repeat labs. We will follow up. Cristina Ellison MD MANDY
[2017-02-03] MEDS: Divalproex 500 mg DR(BID formulation) PO SCH ×2 (08:59→15:40)
[2017-02-03] MEDS: Multivitamin With Minerals Tab PO SCH (09:00)
--- NOTE | 2017-02-03 09:39 | PCM.PYCHPN ---
Psychiatric Progress Note - Psychiatric Progress Note Patient seen today, length of contact: 25 min Patient Chief Complaint: Continues to be depressed but feeling a little better Problems Identified/Issues Discussed: I recent notes and met with patient at bedside. Patient is alert and well- oriented to circumstances. Continues to be depressed but feeling a little better. He doesn't want to and denies any active suicidal thoughts. Thought process is coherent and patient denies hallucinations. Affect is less constricted today. He is well related. He is tolerating his medications and denies any new pain or discomfort. Patient reports that sleep was improved last night. Patient has been visible on unit, watching tv with peers and attending groups. He is cooperative and pleasant. There were no major behavioral issues overnight Diagnostic Results: bipolar disorder by hx r/o schizoaffective disorder bipolar type polysubstance abuse and dependence Medication Change: Yes (Seroquel increased, ativan tapered) Medical Record Reviewed: Yes Mental Status Examination - Cognitive Function Orientation: Person, Place, Situation Attention: WNL - Mood Mood: Depressed (Continues to be depressed but feeling a little better) - Affect Affect: Constricted - Speech Speech: Appropriate (more reactive) - Formal Thought Process Formal Thought Process: No Impairment - Suicidal Ideation Suicidal Ideation: No - Homicidal Ideation Homicidal Ideation: No Goal/Treatment Plan - Goal/Treatment Plan Progress Toward Problem(s) and Goals/Treatment Plan: * c/w current tx and plan * Appreciate f/u by Dr. Ellison on 02/02/17~repeating labs, may call neuro consult if fioricet is ineffective * c/w Depakote 500 mg po bid, VPA <10 on 02/02/17 * Increase Seroquel to 150 mg HS, titrate to prior dose of 200 mg HS * c/w Trazodone 100 mg HS * Consider naltrexone in the future, however this medication has been ineffective for alcohol/opiate abstinence in the past * Ativan 1 mg TID decreased to 1 mg AM/HS, taper as tolerated for alcohol/benzo withdrawal * Vitals reviewed and noted below: Selected Entries 02/02/17 02/02/17 06:52 16:00 Temperature 98.1 F Pulse Rate 71 68 Respiratory 17 Rate Blood Pressure 98/56 L 112/74 O2 Sat by Pulse 96 Oximetry * Weekend labs 02/02/17 06:50 Valproic Acid < 10 L
[2017-02-03] MEDS: Apap-Butalbital-Caffeine 325-50-40mg Tab PO PRN (17:02)
--- NOTE | 2017-02-04 06:39 | PN ---
SUBJECTIVE: The patient is a 61-year-old male. The patient was seen and examined on the bedside, looking comfortable. No nausea, vomiting or diarrhea. No hematuria or hematochezia. No swelling of the leg. No chest pain or palpitations. Headache is getting better. Not sweaty. No fever. No chills. PHYSICAL EXAMINATION: VITAL SIGNS: Temperature 97.4, pulse 85, blood pressure 105/72, respiratory rate 18. HEENT: Head is normocephalic and atraumatic. Eyes, PERRLA. Extraocular muscles are intact. Conjunctivae are clear. Nose is patent. Mucous membranes are moist. NECK: Supple. No carotid bruits, JVD or thyromegaly. CHEST: Bilaterally symmetrical. HEART: S1 and S2 positive. LUNGS: Clear to auscultation. ABDOMEN: Soft. Bowel sounds present. No organomegaly. EXTREMITIES: No edema. No cyanosis. NEUROLOGIC: The patient is awake and alert. Moving all 4 extremities. No focal deficits. MEDICATIONS: Ativan, Depakote, Zestril, Fioricet, folic acid, Maalox, milk of magnesia, Seroquel, multivitamin, Tylenol, B1. LABORATORY DATA: We do not have recent labs today, but I reviewed old labs. ASSESSMENT AND PLAN: Mr. Eber Lo is a 61-year-old male with migraine, Fioricet helping; hyperchloremia; abnormal liver function test; history of ethanol abuse, alcohol level was heigh , admitted to the psych floor, currently continue the present treatment. Gastrointestinal and deep venous thrombosis prophylaxis. Repeat labs. We will follow up. Cristina Ellison MD MTDEloise
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
[2017-02-04] MEDS: Divalproex 500 mg DR(BID formulation) PO SCH ×2 (08:59→17:44)
[2017-02-04] MEDS: Multivitamin With Minerals Tab PO SCH (09:00)
[2017-02-04] MEDS: Apap-Butalbital-Caffeine 325-50-40mg Tab PO PRN (14:21)
--- NOTE | 2017-02-05 00:45 | PN ---
DATE: SUBJECTIVE: The patient is a 61-year-old male. The patient is seen and examined at the bedside. Looking comfortable. No nausea, vomiting or diarrhea. No hematuria or hematochezia. Headache is better. No chest pain. No palpitation. No fever. No chills. PHYSICAL EXAMINATION: VITAL SIGNS: Temperature 98.7, pulse 75, blood pressure 105/77 and respiratory rate 18. HEENT: Head is normocephalic and atraumatic. Eyes, PERRLA. Extraocular muscles are intact. Conjunctivae are clear. Nose is patent. Mucous membranes are moist. NECK: Supple. No carotid bruits, JVD or thyromegaly. CHEST: Bilaterally symmetrical. HEART: S1 and S2 positive. LUNGS: Clear to auscultation. ABDOMEN: Soft. Bowel sounds present. No organomegaly. EXTREMITIES: No edema. No cyanosis. NEUROLOGIC: The patient is awake and alert. Moving all 4 extremities. No focal deficits. MEDICATIONS: Ativan, Depakote, trazodone, Fioricet, folic acid, Maalox, milk of magnesia, Seroquel, Tylenol and B1. LABORATORY DATA: We do not have recent lab today, but reviewed old labs. ASSESSMENT AND PLAN: Mr. Eber Lo is a 61-year-old male with multiple medical problems, having migraine, using Fioricet, getting better, hypercholesterolemia, abnormal liver function test, history of ethanol abuse, history of psychiatric problems, schizophrenia, bipolar, has multiple admissions for suicidal and homicidal ideation. Gastrointestinal and deep venous thrombosis prophylaxis. Repeat lab. Psychiatrist is on the case. We will follow. Cristina Ellison MD MTDD
[2017-02-05 06:51] VITALS: RESP 20; TEMP 97.8; O2SAT 99
[2017-02-05] MEDS: Multivitamin With Minerals Tab PO SCH (08:46)
[2017-02-05] MEDS: Divalproex 500 mg DR(BID formulation) PO SCH ×2 (08:46→17:18)
--- NOTE | 2017-02-05 08:58 | PN ---
SUBJECTIVE: The patient is a 61-year-old male with a long psychiatric history that includes possible diagnoses of schizoaffective disorder, polysubstance abuse, personality disorder, elements of malingering in the patient's homelessness. The patient's mood and affect appears to be brighter, he is pleasant in interactions, he is capable of spontaneity, does not appear to be overtly homicidal, suicidal or psychotic. The veracity of his described symptoms is open to question. He is being maintained on Ativan 1 mg a.m. and at bedtime, Depakote 500 mg b.i.d., Seroquel 150 mg at bedtime. He had been seen by consulting pin worker Dr. Ellison yesterday. He is monitoring his hyperchloremia, abnormal liver function test, and deep vein thrombosis prophylaxis. PHYSICAL EXAMINATION: VITAL SIGNS: Blood pressure 105/77, temperature 98.7, pulse 75, respiratory rate 18. Jaquan Tomlinson MD/ PhD
[2017-02-05] MEDS: Apap-Butalbital-Caffeine 325-50-40mg Tab PO PRN (14:14)
[2017-02-05 16:46] VITALS: BP 111/78; PULSE 84
--- NOTE | 2017-02-05 21:45 | PN ---
DATE: SUBJECTIVE: The patient is a 61-year-old male. The patient is seen and examined at the bedside, looking comfortable. No nausea or vomiting. No hematuria or hematochezia. No swelling of the legs. No chest pain, no palpitations. No headache or dizziness. Headache is better. No fever and no chills. PHYSICAL EXAMINATION VITAL SIGNS: Temperature 97.8, pulse 84, blood pressure 111/70, respiratory rate 20. HEENT: Head is normocephalic and atraumatic. Eyes; PERRLA. Extraocular muscles are intact. Conjunctivae are clear. Nose is patent. Mucous membrane moist. NECK: Supple. No carotid bruits. No JVD or thyromegaly. CHEST: Bilaterally symmetrical. HEART: S1 and S2 positive. LUNGS: Clear to auscultation. ABDOMEN: Soft. Bowel sounds present. No organomegaly. EXTREMITIES: No edema. No cyanosis. NEUROLOGIC: The patient is awake and alert. Moving all 4 extremities. No focal deficits. MEDICATIONS: Ativan, Depakote, trazodone, folic acid, Maalox, milk of magnesia, Seroquel, multivitamins, Tylenol, and Diovan. LABORATORY DATA: We do not have recent labs today, but I reviewed old labs. ASSESSMENT AND PLAN: Mr. Wally Velázquez is a 61-year-old male with multiple medical problems. He is wheelchair bound due to his bad knee arthritis, history of migraine stable with Fioricet, hypercholesterolemia, history of abnormal liver function tests, history of ethanol abuse, history of psych problem, schizophrenia, bipolar, Psychiatrist is on the case, gastrointestinal and deep venous thrombosis prophylaxis, repeat labs. We will follow up. Cristina Ellison MD
--- NOTE | 2017-02-05 23:11 | PN ---
SUBJECTIVE: The patient is a 61-year-old male with a long psychiatric history that had included potential diagnoses of schizoaffective disorder, polysubstance abuse, personality disorder, elements of malingering. The patient is also homeless. He is being maintained on Ativan 1 mg a.m. and h.s., Depakote 500 mg b.i.d., Seroquel 150 mg h.s. The Internal Medicine consultation (Dr. Ellison) note that the patient is doing well medically, is not complaining of dizziness or gastroenterologic distress. He is wheelchair bound because of an arthritic knee. He also has a history of migraine, hypercholesterolemia, elevated liver function tests (probably from alcohol). He is on GI and DVT prophylaxis. He is not showing any signs of psychosis or homicidality or suicidality at this time which is an improvement in his mental status. Jaquan Tomlinson MD/ PhD
[2017-02-06] MEDS: Apap-Butalbital-Caffeine 325-50-40mg Tab PO PRN (09:05)
[2017-02-06] MEDS: Divalproex 500 mg DR(BID formulation) PO SCH (09:06)
[2017-02-06] MEDS: Multivitamin With Minerals Tab PO SCH (09:06)
--- NOTE | 2017-02-06 20:33 | PN ---
DATE: SUBJECTIVE: The patient is a 61-year-old male. The patient is seen and examined at the bedside, looking comfortable early in the morning. No nausea, vomiting, diarrhea. No hematuria or hematochezia. No swelling of the legs. No chest pain. No headache or dizziness. Headache is better. PHYSICAL EXAMINATION: VITAL SIGNS: Temperature 97.8, pulse 84, blood pressure 111/78, respiratory rate 20. HEENT: Head is normocephalic and atraumatic. Eyes; PERRLA. Extraocular muscles are intact. Conjunctivae are clear. Nose is patent. Mucous membrane moist. NECK: Supple. No carotid bruits. No JVD or thyromegaly. CHEST: Bilaterally symmetrical. HEART: S1 and S2 positive. LUNGS: Clear to auscultation. ABDOMEN: Soft. Bowel sounds present. No organomegaly. EXTREMITIES: No edema. No cyanosis. NEUROLOGIC: The patient is awake and alert. Moving all 4 extremities. No focal deficits. MEDICATIONS: Got in the hospital Ativan, Depakote, trazodone, Fioricet, folic acid, Maalox, magnesium oxide, Seroquel, and thiamine. LABORATORY DATA: White blood cells 7.3, hemoglobin 17.1, hematocrit 48.2, platelets 180. Sodium 140, potassium 4.1, BUN 13, creatinine 1.1, bilirubin 0.6. ASSESSMENT AND PLAN: Mr. Wally Velázquez is a 61-year-old male with hyperchloremia, abnormal liver function test, came with ethanol abuse, alcohol level of 235, RPR negative, history of migraine, hypertension, hypercholesterolemia, degenerative joint disease, history of suicidal attempts and ideations. Psychiatry took care of that. Gastric and deep venous thrombosis prophylaxis. Repeat labs. We will follow up. Cristina Ellison MD
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
== END 2017-02-06 15:44 | disposition home or self-care (01) | DRG 885 ==
LOC: ED 19:30 → ERH 02-01 03:07 → PSYC 02-01 05:14
PROVIDERS: ADMIT Psychiatry & Neurology Addiction Medicine; ATTEND Psychiatry & Neurology Addiction Medicine
DX: F39 Unspecified mood [affective] disorder (principal); R45.851 Suicidal ideations; E87.8 Other disorders of electrolyte and fluid balance, not elsewhere classified; F10.10 Alcohol abuse, uncomplicated; G43.909 Migraine, unspecified, not intractable, without status migrainosus; F31.9 Bipolar disorder, unspecified; E78.00 Pure hypercholesterolemia, unspecified; M17.9 Osteoarthritis of knee, unspecified; Y90.7 Blood alcohol level of 200-239 mg/100 ml; F60.9 Personality disorder, unspecified; F19.10 Other psychoactive substance abuse, uncomplicated; F12.90 Cannabis use, unspecified, uncomplicated; R94.5 Abnormal results of liver function studies; Z91.19 Patient's noncompliance with other medical treatment and regimen; Z76.5 Malingerer [conscious simulation]; Z99.3 Dependence on wheelchair; Z59.0 Homelessness

== ENCOUNTER 2017-06-10 19:29 | Emergency (ER) | payer MEDICARE ==
[2017-06-10 19:39] VITALS: BMI 23.7
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
[2017-06-10 21:33] LABS: BASO # 0.05 K/mm3 (0.0-2.0); BASO % 0.6 % (0.0-3.0); EOS # 0.2 (0.0-0.7); EOS % 2.7 % (1.5-5.0); GRAN # 4.11 (1.4-6.5); GRAN % 50.8 % (50.0-68.0); HEMOGLOBIN 14.4 g/dL (14.0-18.0); LYMPH # 2.9 (1.2-3.4); LYMPH % 35.4 % (22.0-35.0); MEAN CELL VOLUME 90.4 fl (80.0-105.0); MEAN CORPUSCULAR HEMOGLOBIN 31.5 pg (25.0-35.0); MEAN CORPUSCULAR HGB CONC 34.9 g/dl (31.0-37.0); MONO # 0.9 (0.1-0.6); MONO % 10.5 % (1.0-6.0); RBC 4.57 10^6/uL (3.5-6.1); RED CELL DISTRIBUTION WIDTH 14.9 % (11.5-14.5); WHITE BLOOD COUNT 8.1 10^3/ul (4.5-11.0)
[2017-06-10 21:34] LABS: URINE BILIRUBIN NEGATIVE (NEGATIVE); URINE BLOOD LARGE (NEGATIVE); URINE GLUCOSE (UA) NEGATIVE (NEGATIVE); URINE LEUKOCYTE ESTERASE NEGATIVE Leu/uL (NEGATIVE); URINE PROTEIN NEGATIVE mg/dL (<30 mg/dL); URINE UROBILINOGEN 0.2 E.U./dL (<1 E.U./dL)
[2017-06-10 21:35] LABS: ALB/GLOB RATIO 1.2 (1.1-1.8); ALBUMIN 3.8 g/dL (3.0-4.8); ALT/SGPT 39 U/L (7-56); AST/SGOT 44 U/L (17-59); BILIRUBIN,DIRECT 0.2 mg/dL (0.0-0.4); BLOOD UREA NITROGEN 12 mg/dL (7-21); GFR AFRICAN-AMERICAN > 60; GFR NON-AFRICAN AMERICAN > 60
[2017-06-10 21:36] LABS: ACETAMINOPHEN < 10.0 ug/ml (10.0-20.0); SALICYLATE < 1 mg/dL (2.0-20.0)
[2017-06-10 21:39] LABS: INR 0.98 (0.93-1.08); PROTHROMBIN TIME 11.2 SECONDS (9.4-12.5)
[2017-06-10 21:59] LABS: URINE APPEARANCE CLEAR (CLEAR); URINE BACTERIA MOD (NEG); URINE COLOR LIGHT YELLOW (YELLOW); URINE EPITHELIAL CELLS 0 - 2 /hpf (0-5); URINE WBC 0 - 2 /hpf (0-6)
[2017-06-10 22:03] LABS: BARBITURATES, UR POSITIVE (NEGATIVE); BENZODIAZEPINES, UR POSITIVE (NEGATIVE); OPIATES, UR POSITIVE (NEGATIVE); PHENCYCLIDINE, UR NEGATIVE (NEGATIVE)
[2017-06-11 00:57] VITALS: RESP 18
[2017-06-11 07:30] VITALS: BP 115/78; PULSE 88; TEMP 98.2; O2SAT 96
--- NOTE | 2017-06-11 08:47 | RAD ---
HISTORY: MEDICAL CLEARANCE COMPARISON: 01/31/2017 FINDINGS: LUNGS: No consolidation. PLEURA: No significant pleural effusion identified, no pneumothorax apparent. CARDIOVASCULAR: Mild cardiomegaly left ventricular enlargement configuration in part accentuated with the technique. Mild concomitant pulmonary venous congestion also suspect. The right infrahilar bronchovascular markings asymmetrically prominent OSSEOUS STRUCTURES: Thoracic spondylosis. Bilateral shoulder arthrosis VISUALIZED UPPER ABDOMEN: Normal. OTHER FINDINGS: None. IMPRESSION: Cardiomegaly and mild pulmonary venous congestion -these are accentuated appearances compared the prior study Thoracic spondylosis. Bilateral shoulder arthrosis
--- NOTE | 2017-06-11 10:04 | CARD ---
APPROVED REPORT EKG Measurement Heart [id number] <Conclusion> Sinus bradycardia Poor R Progression V1-V3.
== END 2017-06-11 08:08 | disposition short-term general hospital (02) ==
LOC: ED 19:29
DX: F32.9 Major depressive disorder, single episode, unspecified (principal); F10.10 Alcohol abuse, uncomplicated; F19.10 Other psychoactive substance abuse, uncomplicated; I10 Essential (primary) hypertension; M06.9 Rheumatoid arthritis, unspecified; Z59.0 Homelessness; F17.200 Nicotine dependence, unspecified, uncomplicated
CPT/HCPCS: 71045; 80053; 81001; 82248; 85025; 85610; 90791; 93005; 99285; G0480

== ENCOUNTER 2017-08-28 10:08 | Observation (INO) | payer MEDICARE, OTHER ==
--- NOTE | 2017-08-28 10:22 | ED PDOC ---
Arrival/HPI - General Chief Complaint: Weakness/Neurological Deficit Time Seen by Provider: 08/28/17 10:16 Historian: Patient - History of Present Illness Narrative History of Present Illness (Text): 08/28/17 10:25 Patient is a 62 year old male who presents to the Emergency department complaining of right side numbness which started 3 days ago. Patient reports that his right side feels numb and is unable to even write his name. Patient mentions that his last EtOH drink was approximately 63 days ago. Of note patient would drink beer and Vodka when he drinks. Patient states having difficulty urinating. He has a history of suicidal ideation but denies currently having any ideation. Patient is right hand dominate. He denies fevers , chills, headache, dizziness, chest pain, shortness of breath, dyspnea on exertion, cough, abdominal pain, nausea, vomiting, diarrhea, back pain, neck pain, or any other complaint. Time/Duration: < week Symptom Onset: Sudden Symptom Course: Unchanged Context: Home Past Medical History - Provider Review Nursing Documentation Reviewed: Yes - Infectious Disease Hx of Infectious Diseases: None - Tetanus Immunization Tetanus Immunization: Unknown - Cardiac Hx Hypertension: Yes - Pulmonary Hx Chronic Obstructive Pulmonary Disease (COPD): Yes - Neurological Hx Dementia: No - HEENT Hx HEENT Disorder: No Hx Cataracts: No Hx Deafness: No Hx Difficulty Chewing: No Hx Epistaxis: No Hx Glaucoma: No Hx Macular Degeneration: No - Renal Hx Renal Disorder: No Hx Kidney Stones: No - Endocrine/Metabolic Hx Hyperthyroidism: No Hx Hypothyroidism: No - Hematological/Oncological Hx Anemia: No Hx Sickle Cell Disease: No - Integumentary Hx Dermatological Disorder: No Hx Basal Cell Carcinoma: No Hx Madrigal: No Hx Cellulitis: No Hx Eczema: No Hx Melanoma: No Hx Psoriasis: No Hx Squamous Cell Carcinoma: No - Musculoskeletal/Rheumatological Hx Arthritis: Yes Hx Fractures: Yes (history) Hx Osteoporosis: No Hx Rheumatoid Arthritis: Yes - Gastrointestinal Hx Crohn's Disease: No Hx Diverticulitis: No Hx Gall Bladder Disease: No Hx Gastritis: No Hx Pancreatitis: No - Genitourinary/Gynecological Hx Sexually Transmitted Diseases: No - Psychiatric Hx Anxiety: Yes Hx Bipolar Disorder: Yes Hx Depression: Yes Hx Schizophrenia: Yes Hx Substance Use: Yes - Past Surgical History Past Surgical History: Unable to Obtain - Surgical History Hx Appendectomy: Yes Hx Carotid Endarterectomy: No Hx Cholecystectomy: No Hx Coronary Artery Bypass Graft: No Hx Coronary Stent: No - Anesthesia Hx Anesthesia: Yes Hx Anesthesia Reactions: No Hx Malignant Hyperthermia: No - Suicidal Assessment Feels Threatened In Home Enviroment: No Family/Social History - Physician Review Nursing Documentation Reviewed: Yes Family/Social History: No Known Family HX Smoking Status: Current Some Days Smoker Hx Alcohol Use: Yes Hx Substance Use: Yes Substance used: heroine Hx Substance Use Treatment: Yes ([place] 29 days 27 years ago) Allergies/Home Meds Allergies/Adverse Reactions: Allergies banana Allergy (Verified 08/28/17 10:18) ANAPHYLAXIS tea tree Allergy (Verified 08/28/17 10:18) ANAPHYLAXIS Home Medications: Home Meds Medication Instructions Recorded Confirmed Escitalopram [Lexapro] 10 mg PO DAILY 08/28/17 08/28/17 Gabapentin [Neurontin] 300 mg PO TID 08/28/17 08/28/17 Ibuprofen [Motrin] 600 mg PO TID 08/28/17 08/28/17 Mirtazapine [Remeron] 15 mg PO HS 08/28/17 08/28/17 Olanzapine [Zyprexa] 5 mg PO DAILY 08/28/17 08/28/17 QUEtiapine [SEROquel] 50 mg PO BID 08/28/17 08/28/17 Tamsulosin [Flomax] 0.4 mg PO DAILY 08/28/17 08/28/17 Review of Systems - Physician Review All systems were reviewed & negative as marked: Yes - Review of Systems Constitutional: absent: Fevers, Night Sweats Respiratory: absent: SOB, Cough Cardiovascular: absent: Chest Pain, RYAN Gastrointestinal: absent: Abdominal Pain, Diarrhea, Nausea, Vomiting Genitourinary Male: Dysuria (Difficulty urinating) Musculoskeletal: absent: Back Pain, Neck Pain Neurological: Other (Numbness). absent: Headache, Dizziness Psychiatric: absent: Suicidal Ideation Physical Exam Vital Signs Reviewed: Yes Vital Signs Temp Pulse Resp BP Pulse Ox 08/28/17 10:14 98.5 F 102 H 20 104/72 99 Temperature: Afebrile Blood Pressure: Normal Pulse: Regular Respiratory Rate: Normal Mental Status: Positive for: Alert and Oriented X 3 - Systems Exam Head: Present: Atraumatic, Normocephalic Pupils: Present: PERRL Extroacular Muscles: Present: EOMI Conjunctiva: Present: Normal Mouth: Present: Moist Mucous Membranes Neck: Present: Normal Range of Motion Respiratory/Chest: Present: Clear to Auscultation, Good Air Exchange. No: Respiratory Distress, Accessory Muscle Use Cardiovascular: Present: Regular Rate and Rhythm, Normal S1, S2. No: Murmurs Abdomen: No: Tenderness, Distention, Peritoneal Signs Back: Present: Normal Inspection Upper Extremity: Present: Normal Inspection. No: Cyanosis, Edema Lower Extremity: Present: Normal Inspection. No: Edema Neurological: Present: GCS=15, CN II-XII Intact, Speech Normal, Other (right hand clumsiness and weakness) Skin: Present: Warm, Dry, Normal Color. No: Rashes Psychiatric: Present: Alert, Oriented x 3, Normal Insight, Normal Concentration Medical Decision Making ED Course and Treatment: 08/28/17 10:22 Impression: Patient is a 62 year old male complaining of right side numbness. Differential Diagnosis included but are not limited to: Subacute CVA vs noncompliance vs conversion reaction Plan: --Head CT without contrast --labs --EKG --Chest X-ray --Urinalaysis -- Reassess and disposition Prior Visits: Notes and results from previous visits were reviewed. Progress Notes: 08/28/17 11:31 EKG shows NSR at [address]/T wave changes. Interpreted by me. 08/28/17 15:16 Chest X-ray: Creator : Sea Dejesus MD IMPRESSION: No active disease. 08/28/17 15:[address] without contrast: Creator : Ramsey Gupta MD IMPRESSION: Stable noncontrast head CT with no significant change from prior head CT dated 07/01/2015. No acute intracranial findings as discussed above. Follow up CT or MRI are available if clinically warranted. - Critical Care Critical Care Minutes: 30 minutes - Lab Interpretations Lab Results: 08/28/17 10:50 08/28/17 10:50 Lab Results 08/28/17 10:50: Hemoglobin A1c 5.2 08/28/17 10:50: Sodium 149 H, Potassium 4.3, Chloride 114 H, Carbon Dioxide 21, Anion Gap 18, BUN 28 H, Creatinine 1.5, Est GFR ( Amer) 58, Est GFR (Non- Af Amer) 48, Random Glucose 93, Calcium 8.7, Total Bilirubin 0.4, AST 50, ALT 64 H, Alkaline Phosphatase 53, Total Protein 6.7, Albumin 3.7, Globulin 3.0, Albumin/Globulin Ratio 1.2 08/28/17 10:50: Alcohol, Quantitative < 10 08/28/17 10:50: PT 10.9, INR 0.95, APTT 32.2 08/28/17 10:50: WBC 6.7, RBC 4.23, Hgb 12.8 L, Hct 38.0 L, MCV 89.8, MCH 30.3, MCHC 33.7, RDW 14.8 H, Plt Count 186, MPV 9.3, Gran % 59.3, Lymph % (Auto) 26.1 , [place] % (Auto) 9.6 H, Eos % (Auto) 4.9, Baso % (Auto) 0.1, Gran # 3.97, Lymph # (Auto) 1.8, [place] # (Auto) 0.6, Eos # (Auto) 0.3, Baso # (Auto) 0.01 I have reviewed the lab results: Yes - RAD Interpretation Radiology Orders: 08/28/17 10:21 HEAD W/O CONTRAST [CT] Stat CHEST ONE VIEW [RAD] Stat Roofing Apprentice: Radiologist - EKG Interpretation Interpreted by ED Physician: Yes Type: 12 lead EKG - Medication Orders Current Medication Orders: Acetaminophen (Tylenol 325mg Tab) 650 mg PO Q6H PRN PRN Reason: Pain, moderate (4-7) Last Admin: 08/29/17 16:35 Dose: 650 mg Re-Assess: MAR Pain/Vitals Document 08/29/17 17:35 ML (Rec: 08/29/17 17:52 ML [id number]) Pain Reassessment Is This A Pain ReAssessment? Yes Presence of Pain Presence of Pain No Aspirin (Ecotrin) 81 mg PO DAILY [facility] Last Admin: 08/30/17 09:40 Dose: 81 mg Heparin Sodium (Porcine) (Heparin) 5,000 units SC Q8 FRANCI PRN Reason: Protocol Last Admin: 08/30/17 05:54 Dose: Not Given Non-Admin Reason: Patient Refused Ceftriaxone Sodium (Rocephin 1 Gram Ivpb) 1 gm in 100 mls @ 100 mls/hr IVPB DAILY FRANCI PRN Reason: Protocol Last Admin: 08/30/17 09:40 Dose: 100 mls/hr eMAR Start Stop Document 08/30/17 09:40 ML (Rec: 08/30/17 09:40 ML [email or web address]) Intravenous Solution Start Date 08/30/17 Start Time 09:40 End Date 08/30/17 End time 10:40 Total Infusion Time 60 Pantoprazole Sodium (Protonix Ec Tab) 40 mg PO 0600 FRANCI Last Admin: 08/30/17 05:53 Dose: 40 mg Discontinued Medications Aspirin (Aspirin Chewable) 81 mg PO STAT STA Stop: 08/28/17 17:15 Last Admin: 08/28/17 17:44 Dose: 81 mg Atorvastatin Calcium (Lipitor) 40 mg PO DIN FRANCI Last Admin: 08/29/17 16:35 Dose: 40 mg Heparin Sodium (Porcine) (Heparin) 5,000 units SC STAT STA PRN Reason: Protocol Stop: 08/28/17 17:26 Last Admin: 08/28/17 17:44 Dose: 5,000 units MAR aPTT Document 08/28/17 17:44 EQ (Rec: 08/28/17 17:44 EQ [id number]) aPTT aPTT (secs) 32.2 Subcutaneous Administrations Document 08/28/17 17:44 EQ (Rec: 08/28/17 17:44 EQ [id number]) Injection Site MAR Injection Site Left Deltoid Charges for Administration # of Subcutaneous Administrations 1 Ketorolac Tromethamine (Toradol) 30 mg IVP STAT STA Stop: 08/28/17 17:11 Last Admin: 08/28/17 18:23 Dose: 30 mg VANESSA Pain Assessment Document 08/28/17 18:23 ML (Rec: 08/28/17 18:23 ML [email or web address]) Pain Reassessment Is this a pain reassessment? No Presence of Pain Presence of Pain Yes IVP Administration Document 08/28/17 18:23 ML (Rec: 08/28/17 18:23 ML [id number]) Charges for Administration # of IVP Administrations 1 Re-Assess: VANESSA Pain Assessment Document 08/28/17 19:23 SG (Rec: 08/29/17 02:47 SG [id number]) Pain Reassessment Is this a pain reassessment? Yes Sleep Is patient sleeping during reassessment? No Presence of Pain Presence of Pain No Pneumococcal Polyvalent Vaccine (Pneumovax 23 Vaccine) 0.5 ml IM .ONCE ONE Stop: 08/28/17 22:05 Last Admin: 08/29/17 02:47 Dose: MAR Immunization Data Document 08/29/17 02:47 (Rec: 08/29/17 02:47 [id number]) Immunization Data Vaccine Information Sheet Given Yes Immunization Registry Document 08/29/17 02:47 (Rec: 08/29/17 02:47 [id number]) Immunization Registry Consent Date 06/10/17 NIHSS Scale ([place]) Time Performed: 10:23 - How Severe is the Stoke Baseline Level of Consciousness: 0=Alert LOC to Questions: 0=Both comments correct LOC to commands: 0=Obeys both correctly Best Gaze: 0=Normal Visual: 0=No visual loss Facial: 1=Minor asymmetry Motor Arm - Left: 0=No drift Motor Arm - Right: 0=No drift Motor Leg - Left: 0=No drift Motor Leg - Right: 0=No drift Limb Ataxia: 1=Present Upper or Lower Sensory: 1=Mild to moderate loss Best Language: 0=No aphasia Dysarthia: 0=Normal articulation Extinction & Inattention (Neglect): 0=Normal, no object Score: 3 Risk Level: Minor Stroke Risk - Scribe Statement The provider has reviewed the documentation as recorded by the Scribe Daryl Paofallon Provider Scribe Attestation: All medical record entries made by the Scribe were at my direction and personally dictated by me. I have reviewed the chart and agree that the record accurately reflects my personal performance of the history, physical exam, medical decision making, and the department course for this patient. I have also personally directed, reviewed, and agree with the discharge instructions and disposition. Disposition/Present on Arrival - Present on Arrival Any Indicators Present on Arrival: No History of DVT/PE: No History of Uncontrolled Diabetes: No Urinary Catheter: No History of Decub. Ulcer: No History Surgical Site Infection Following: None - Disposition Have Diagnosis and Disposition been Completed?: Yes Diagnosis: CVA (cerebral vascular accident) Disposition: HOSPITALIZED Disposition Time: 17:19 Patient Plan: Admission Patient Problems: Current Active Problems Problem Status Onset Wu's palsy Acute Neuropathy Acute Condition: GOOD
[2017-08-28 11:17] LABS: BASO # 0.01 K/mm3 (0.0-2.0); BASO % 0.1 % (0.0-3.0); EOS # 0.3 (0.0-0.7); EOS % 4.9 % (1.5-5.0); GRAN # 3.97 (1.4-6.5); GRAN % 59.3 % (50.0-68.0); HEMOGLOBIN 12.8 g/dL (14.0-18.0); LYMPH # 1.8 (1.2-3.4); LYMPH % 26.1 % (22.0-35.0); MEAN CELL VOLUME 89.8 fl (80.0-105.0); MEAN CORPUSCULAR HEMOGLOBIN 30.3 pg (25.0-35.0); MEAN CORPUSCULAR HGB CONC 33.7 g/dl (31.0-37.0); MEAN PLATELET VOLUME 9.3 fl (7.0-11.0); MONO # 0.6 (0.1-0.6); MONO % 9.6 % (1.0-6.0); RBC 4.23 10^6/uL (3.5-6.1); RED CELL DISTRIBUTION WIDTH 14.8 % (11.5-14.5); WHITE BLOOD COUNT 6.7 10^3/ul (4.5-11.0)
[2017-08-28 11:24] LABS: INR 0.95 (0.93-1.08); PARTIAL THROMBOPLASTIN TIME 32.2 Seconds (25.1-36.5); PROTHROMBIN TIME 10.9 SECONDS (9.4-12.5)
--- NOTE | 2017-08-28 12:54 | CT ---
PROCEDURE: CT HEAD WITHOUT CONTRAST. HISTORY: right hand weakness// for three days COMPARISON: Noncontrast head CT 07/11/2015. TECHNIQUE: Axial computed tomography images were obtained through the head/brain without intravenous contrast. Radiation dose: Total exam DLP = 905.57 mGy-cm. This CT exam was performed using one or more of the following dose reduction techniques: Automated exposure control, adjustment of the mA and/or kV according to patient size, and/or use of iterative reconstruction technique. FINDINGS: HEMORRHAGE: No intracranial hemorrhage. BRAIN: Normal guerrero-white matter differentiation and density are appreciated throughout the cerebrum and cerebellum with the brainstem appearing unremarkable as well. There is no mass effect. There is no suspicious extra-axial fluid collection and the midline brain anatomy appears diffusely unremarkable. VENTRICLES: Unremarkable. No hydrocephalus. CALVARIUM: Unremarkable. PARANASAL SINUSES: Limited bilateral ethmoid and left maxillary sinus disease incidentally noted. MASTOID AIR CELLS: Unremarkable as visualized. No inflammatory changes. OTHER FINDINGS: None. IMPRESSION: Stable noncontrast head CT with no significant change from prior head CT dated 07/01/2015. No acute intracranial findings as discussed above. Follow up CT or MRI are available if clinically warranted.
--- NOTE | 2017-08-28 13:05 | RAD ---
PROCEDURE: CHEST RADIOGRAPH, 1 VIEW HISTORY: Generalized Weakness COMPARISON: 06/11/2017 FINDINGS: LUNGS: Clear. PLEURA: No pneumothorax or pleural fluid seen. CARDIOVASCULAR: Normal. OSSEOUS STRUCTURES: No significant abnormalities. VISUALIZED UPPER ABDOMEN: Normal. OTHER FINDINGS: None. IMPRESSION: No active disease.
--- NOTE | 2017-08-28 16:03 | CARD ---
APPROVED REPORT EKG Measurement Heart [id number] <Conclusion> Normal sinus rhythm Q in 3 RVCD PRWP
[2017-08-28 17:00] LABS: URINE BILIRUBIN NEGATIVE (NEGATIVE); URINE BLOOD LARGE (NEGATIVE); URINE GLUCOSE (UA) NEGATIVE (NEGATIVE); URINE LEUKOCYTE ESTERASE SMALL Leu/uL (NEGATIVE); URINE PROTEIN 100 mg/dL (<30 mg/dL); URINE UROBILINOGEN 0.2 E.U./dL (<1 E.U./dL)
[2017-08-28 17:05] LABS: URINE COLOR YELLOW (YELLOW)
[2017-08-28 17:17] LABS: BARBITURATES, UR NEGATIVE (NEGATIVE); BENZODIAZEPINES, UR POSITIVE (NEGATIVE); OPIATES, UR POSITIVE (NEGATIVE); PHENCYCLIDINE, UR NEGATIVE (NEGATIVE); URINE RBC TNTC /hpf (0-2); URINE WBC TNTC /hpf (0-6)
[2017-08-28 17:18] LABS: URINE APPEARANCE CLOUDY (CLEAR); URINE BACTERIA MOD (NEG)
--- NOTE | 2017-08-28 17:35 | MRI ---
PROCEDURE: MRI BRAIN WITHOUT CONTRAST HISTORY: Subacute CVA, R hand weakness, 4 days ago COMPARISON: None. TECHNIQUE: Multiplanar, multisequence MR images of the brain were obtained without intravenous contrast enhancement. FINDINGS: HEMORRHAGE: None DWI: No evidence of an acute or early subacute infarction. BRAIN PARENCHYMA: No mass effect or edema. No atrophy or chronic microvascular ischemic changes. VENTRICLES: Unremarkable. No hydrocephalus. CRANIUM: Unremarkable. ORBITS: Grossly unremarkable. PARANASAL SINUSES/MASTOIDS: Minimal mucosal thickening in the ethmoid and frontal sinuses as well as maxillary sinuses VASCULAR SYSTEM: Skull base flow voids intact. OTHER FINDINGS: None. IMPRESSION: Unremarkable non contrast enhanced MRI of the brain.
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
[2017-08-28] MEDS: cefTRIAXone 1 gm 1 GM/100 ML BAG IVPB SCH (18:23)
[2017-08-28 19:53] LABS: ALB/GLOB RATIO 1.2 (1.1-1.8); ALBUMIN 3.7 g/dL (3.0-4.8); CALCIUM 8.7 mg/dL (8.4-10.5)
--- NOTE | 2017-08-28 20:14 | US ---
HISTORY: Leg pain and swelling. Evaluate for DVT PHYSICIAN(S): Ivan Estes MD. TECHNIQUE: Duplex sonography and color-flow Doppler with graded compression were used to evaluate the deep venous systems of both lower extremities. FINDINGS: The visualized deep venous systems of both lower extremities are sonographically normal and compressible. Normal wave forms and augmentation are seen. There is no sonographic evidence for deep venous thrombosis in the visualized segments of both lower extremities. IMPRESSION: No sonographic evidence for deep venous thrombosis in the visualized segments of both lower extremities.
--- NOTE | 2017-08-28 20:21 | US ---
PROCEDURE: Bilateral carotid artery duplex ultrasound HISTORY: Carotid stenosis TIA PHYSICIAN(S): Ivan Estes MD. TECHNIQUE: Duplex sonography and color-flow Doppler were used to evaluate the carotid bifurcations and limited segments of the vertebral arteries bilaterally. FINDINGS: There is mild smooth hypoechoic plaque noted at the carotid bifurcations bilaterally. The peak systolic velocity in the proximal right internal carotid artery is 86 cm/sec. This corresponds to a 0-19 percent proximal right ICA stenosis. Normal systolic velocities are noted in the proximal right external carotid artery. There is antegrade flow in the right vertebral artery. The peak systolic velocity in the proximal left internal carotid artery is 87 cm/sec. This corresponds to a 0-19 percent proximal left ICA stenosis. Normal systolic velocities are noted in the proximal left external carotid artery. There is antegrade flow in the left vertebral artery. IMPRESSION: 1. Bilateral 0-19 percent proximal ICA stenoses. 2. Antegrade flow in both vertebral arteries.
[2017-08-28 22:03] VITALS: BMI 32.7
[2017-08-28] MEDS ORDERED: Pneumococcal 23-Valent Vaccine IM ONE (22:04)
[2017-08-29] MEDS: Pantoprazole 40 mg EC Tab PO SCH (05:15)
[2017-08-29 07:07] LABS: BASO # 0.01 K/mm3 (0.0-2.0); BASO % 0.2 % (0.0-3.0); EOS # 0.3 (0.0-0.7); EOS % 5.6 % (1.5-5.0); GRAN # 2.61 (1.4-6.5); GRAN % 45.8 % (50.0-68.0); HEMOGLOBIN 12.2 g/dL (14.0-18.0); LYMPH # 2.2 (1.2-3.4); LYMPH % 38.7 % (22.0-35.0); MEAN CORPUSCULAR HEMOGLOBIN 29.8 pg (25.0-35.0); MEAN CORPUSCULAR HGB CONC 33.5 g/dl (31.0-37.0); MEAN PLATELET VOLUME 9.4 fl (7.0-11.0); MONO # 0.6 (0.1-0.6); MONO % 9.7 % (1.0-6.0); RBC 4.09 10^6/uL (3.5-6.1); RED CELL DISTRIBUTION WIDTH 14.6 % (11.5-14.5); WHITE BLOOD COUNT 5.7 10^3/ul (4.5-11.0)
[2017-08-29 07:12] LABS: ALB/GLOB RATIO 1.1 (1.1-1.8); ALBUMIN 3.1 g/dL (3.0-4.8); ALT/SGPT 59 U/L (7-56); AST/SGOT 44 U/L (17-59); BLOOD UREA NITROGEN 23 mg/dL (7-21); CALCIUM 8.3 mg/dL (8.4-10.5); GFR AFRICAN-AMERICAN > 60; GFR NON-AFRICAN AMERICAN > 60; HDL CHOLESTEROL 28 mg/dL (29-60)
[2017-08-29 07:23] LABS: LDL CHOLESTEROL 65 mg/dL (0-129)
[2017-08-29 07:25] LABS: INR 1.03 (0.93-1.08); PARTIAL THROMBOPLASTIN TIME 31.4 Seconds (25.1-36.5); PROTHROMBIN TIME 11.9 SECONDS (9.4-12.5)
[2017-08-29] MEDS: cefTRIAXone 1 gm 1 GM/100 ML BAG IVPB SCH (09:28)
--- NOTE | 2017-08-29 11:58 | CP.PCM.PN ---
<Rosamaria Oliveira - Last Filed: 08/29/17 11:58> Subjective - Date & Time of Evaluation Date of Evaluation: 08/29/17 Time of Evaluation: 11:56 - Subjective Subjective: Mr. Lo was seen and examined at the bedside. He remains alert, oriented. He claims of minimally movement of the right hand, very sensitive to touch. extremity ultrasound showed no DVT. He is able to follow simple commands uses crutches to ambulate due to his previous knee surgery. There was no untoward events overnight. Objective - Vital Signs/Intake and Output Vital Signs (last 24 hours): Temp Pulse Resp BP Pulse Ox 98.1 F 82 20 105/55 L 96 08/29/17 06:00 08/29/17 06:00 08/29/17 06:00 08/29/17 06:00 08/29/17 06:00 Intake and Output: 08/29/17 08/29/17 06:59 18:59 Intake Total 1080 Output Total 1000 Balance 80 - Medications Medications: Current Medications Aspirin (Ecotrin) 81 mg PO DAILY [facility] Last Admin: 08/29/17 09:28 Dose: 81 mg Atorvastatin Calcium (Lipitor) 40 mg PO DIN [facility] Last Admin: 08/28/17 18:23 Dose: 40 mg Heparin Sodium (Porcine) (Heparin) 5,000 units SC Q8 [facility] PRN Reason: Protocol Last Admin: 08/29/17 05:15 Dose: 5,000 units Ceftriaxone Sodium (Rocephin 1 Gram Ivpb) 1 gm in 100 mls @ 100 mls/hr IVPB DAILY [facility] PRN Reason: Protocol Last Admin: 08/29/17 09:28 Dose: 100 mls/hr Pantoprazole Sodium (Protonix Ec Tab) 40 mg PO 0600 [facility] Last Admin: 08/29/17 05:15 Dose: 40 mg - Labs Labs: 08/29/17 06:00 08/29/17 06:00 PT 11.9 SECONDS (9.4-12.5) 08/29/17 06:00 INR 1.03 (0.93-1.08) 08/29/17 06:00 APTT 31.4 Seconds (25.1-36.5) 08/29/17 06:00 - Constitutional Appears: No Acute Distress - Head Exam Head Exam: NORMAL INSPECTION - Eye Exam Pupil Exam: PERRL - Neurological Exam Neurological Exam: Alert, Awake, Oriented x3 Neuro motor strength exam: Left Upper Extremity: 5, Right Upper Extremity: 2/1, Left Lower Extremity: 5, Right Lower Extremity: 4 Additional comments: alert, oriented, follows simple commands with right hand weakness, sensation is intact. Assessment and Plan (1) Neuropathy Assessment & Plan: Case discussed with Dr. Woo, continue all current medical, physical, and occupational therapies. Recommend to follow up with Dr. Berg for EMG/ SPECIALIST FIELD ENGINEER as an outpatient. Status: Acute <Parisa Woo - Last Filed: 08/30/17 21:24> Objective - Vital Signs/Intake and Output Vital Signs (last 24 hours): Temp Pulse Resp BP Pulse Ox 98.4 F 79 20 126/83 95 08/30/17 06:00 08/30/17 06:00 08/30/17 06:00 08/30/17 06:00 08/30/17 06:00 - Labs Labs: 08/30/17 06:30 08/30/17 06:30 PT 11.9 SECONDS (9.4-12.5) 08/29/17 06:00 INR 1.03 (0.93-1.08) 08/29/17 06:00 APTT 31.4 Seconds (25.1-36.5) 08/29/17 06:00
[2017-08-29 19:39] VITALS: TEMP 98.4
--- NOTE | 2017-08-29 20:15 | CP.PCM.PN ---
<Triny Ramsey - Last Filed: 08/29/17 20:11> Subjective - Date & Time of Evaluation Date of Evaluation: 08/29/17 Time of Evaluation: 12:00 - Subjective Subjective: Triny Ramsey, PGY1, Progress Note for Dr Jolly: Patient seen and examined at bedside. No acute events overnight. This AM, pt reports bilateral LE pain, 6/10. Denies redness, warmth, tenderness to the area. Reports dysuria, frequency, states that he had a ureteral stent put in 3 years ago at [facility], had poor follow up as outpatient as he is homeless. Reports right hand unchanged from yesterday. Denies cp, sob, abdominal pain, leg swelling. Objective - Vital Signs/Intake and Output Vital Signs (last 24 hours): Temp Pulse Resp BP Pulse Ox 98.4 F 68 19 107/69 97 08/29/17 18:00 08/29/17 18:00 08/29/17 18:00 08/29/17 18:00 08/29/17 18:00 Intake and Output: 08/29/17 08/30/17 18:59 06:59 Intake Total 600 Output Total 300 Balance 300 - Medications Medications: Current Medications Acetaminophen (Tylenol 325mg Tab) 650 mg PO Q6H PRN PRN Reason: Pain, moderate (4-7) Last Admin: 08/29/17 16:35 Dose: 650 mg Aspirin (Ecotrin) 81 mg PO DAILY [facility] Last Admin: 08/29/17 09:28 Dose: 81 mg Atorvastatin Calcium (Lipitor) 40 mg PO DIN [facility] Last Admin: 08/29/17 16:35 Dose: 40 mg Heparin Sodium (Porcine) (Heparin) 5,000 units SC Q8 [facility] PRN Reason: Protocol Last Admin: 08/29/17 13:32 Dose: 5,000 units Ceftriaxone Sodium (Rocephin 1 Gram Ivpb) 1 gm in 100 mls @ 100 mls/hr IVPB DAILY [facility] PRN Reason: Protocol Last Admin: 08/29/17 09:28 Dose: 100 mls/hr Pantoprazole Sodium (Protonix Ec Tab) 40 mg PO 0600 [facility] Last Admin: 08/29/17 05:15 Dose: 40 mg - Labs Labs: 08/29/17 06:00 08/29/17 06:00 PT 11.9 SECONDS (9.4-12.5) 08/29/17 06:00 INR 1.03 (0.93-1.08) 08/29/17 06:00 APTT 31.4 Seconds (25.1-36.5) 08/29/17 06:00 - Constitutional Appears: Non-toxic, No Acute Distress - Head Exam Head Exam: ATRAUMATIC, NORMOCEPHALIC - Eye Exam Eye Exam: EOMI, PERRL. absent: Conjunctival injection, Nystagmus, Scleral icterus Pupil Exam: NORMAL ACCOMODATION, PERRL. absent: Fixed, Irregular, Unequal - ENT Exam ENT Exam: Mucous Membranes Moist - Neck Exam Neck Exam: Full ROM - Respiratory Exam Respiratory Exam: Clear to Ausculation Bilateral, NORMAL BREATHING PATTERN. absent: Accessory Muscle Use, Rales, Rhonchi, Wheezes, Stridor - Cardiovascular Exam Cardiovascular Exam: RRR, +S1, +S2. absent: Murmur - GI/Abdominal Exam GI & Abdominal Exam: Soft, Normal Bowel Sounds. absent: Guarding, Rigid, Tenderness, Mass, Organomegaly, Rebound - Extremities Exam Extremities Exam: absent: Calf Tenderness, Pedal Edema Additional comments: + right hand drop, decreased sensation. - Back Exam Back Exam: NORMAL INSPECTION - Neurological Exam Neurological Exam: Alert, Awake, Oriented x3 - Psychiatric Exam Psychiatric exam: Normal Affect, Normal Mood - Skin Skin Exam: Dry, Normal Color, Warm Assessment and Plan - Assessment and Plan (Free Text) Assessment: 62 year old male with history of alcohol abuse, homelessness, nephrolithiasis (s /p stent 3 years ago at [facility]), noncompliance, presents for right sided radial nerve palsy, found to have UTI: Radial nerve palsy: - CT head and brain MRI negative - Carotid artery US neg for significant stenoses. - LE doppler neg for DVT - PT eval recommends outpatient PT/OT for right hand function and right knee pain - Neuro recommends outpatient EMG in 2 weeks - Tylenol prn pain - ASA - LDL 65 Complicated UTI: 2/2 likely stent placement - UA pos for infection - Rocephin - Urine culture f/u - renal US - Urology consult for stent removal as pt is homeless and has poor compliance Hx of alcohol use: - CIWA 0 - monitor PPX: protonix, hep SQ HHD Case discussed with Dr Jolly. Triny Ramsey, PGY1 <Jossue Jolly - Last Filed: 08/30/17 08:33> Objective - Vital Signs/Intake and Output Vital Signs (last 24 hours): Temp Pulse Resp BP Pulse Ox 98.4 F 79 20 126/83 95 08/30/17 06:00 08/30/17 06:00 08/30/17 06:00 08/30/17 06:00 08/30/17 06:00 - Medications Medications: Current Medications Acetaminophen (Tylenol 325mg Tab) 650 mg PO Q6H PRN PRN Reason: Pain, moderate (4-7) Last Admin: 08/29/17 16:35 Dose: 650 mg Aspirin (Ecotrin) 81 mg PO DAILY [facility] Last Admin: 08/29/17 09:28 Dose: 81 mg Heparin Sodium (Porcine) (Heparin) 5,000 units SC Q8 [facility] PRN Reason: Protocol Last Admin: 08/30/17 05:54 Dose: Not Given Ceftriaxone Sodium (Rocephin 1 Gram Ivpb) 1 gm in 100 mls @ 100 mls/hr IVPB DAILY [facility] PRN Reason: Protocol Last Admin: 08/29/17 09:28 Dose: 100 mls/hr Pantoprazole Sodium (Protonix Ec Tab) 40 mg PO 0600 [facility] Last Admin: 08/30/17 05:53 Dose: 40 mg - Labs Labs: 08/30/17 06:30 08/30/17 06:30 PT 11.9 SECONDS (9.4-12.5) 08/29/17 06:00 INR 1.03 (0.93-1.08) 08/29/17 06:00 APTT 31.4 Seconds (25.1-36.5) 08/29/17 06:00 Attending/Attestation - Attestation I have personally seen and examined this patient.: Yes I have fully participated in the care of the patient.: Yes I have reviewed all pertinent clinical information, including history, physical exam and plan: Yes Notes (Text): Patient seen and examined with the residents. Agree with above Paresthesia of the RUE possibly attributed to Saturday night palsy?? Outpt EMG with neurology in 2 weeks. UTI from prior stent for urologic intervention. Will consult urology for stent removal 08/30/17 08:33
[2017-08-30] MEDS: Pantoprazole 40 mg EC Tab PO SCH (05:53)
[2017-08-30 07:02] LABS: BASO # 0.01 K/mm3 (0.0-2.0); BASO % 0.2 % (0.0-3.0); EOS # 0.2 (0.0-0.7); EOS % 4.1 % (1.5-5.0); GRAN # 3.01 (1.4-6.5); GRAN % 51.2 % (50.0-68.0); HEMOGLOBIN 12.5 g/dL (14.0-18.0); LYMPH # 1.9 (1.2-3.4); LYMPH % 32.8 % (22.0-35.0); MEAN CELL VOLUME 87.2 fl (80.0-105.0); MEAN CORPUSCULAR HEMOGLOBIN 30.3 pg (25.0-35.0); MEAN CORPUSCULAR HGB CONC 34.7 g/dl (31.0-37.0); MEAN PLATELET VOLUME 9.6 fl (7.0-11.0); MONO # 0.7 (0.1-0.6); MONO % 11.7 % (1.0-6.0); RBC 4.13 10^6/uL (3.5-6.1); RED CELL DISTRIBUTION WIDTH 13.9 % (11.5-14.5); WHITE BLOOD COUNT 5.9 10^3/ul (4.5-11.0)
[2017-08-30 07:33] VITALS: BP 126/83; PULSE 79; RESP 20; O2SAT 95
[2017-08-30 07:42] LABS: ALB/GLOB RATIO 1.2 (1.1-1.8); ALBUMIN 3.3 g/dL (3.0-4.8); ALT/SGPT 57 U/L (7-56); AST/SGOT 50 U/L (17-59); BLOOD UREA NITROGEN 21 mg/dL (7-21); CALCIUM 8.3 mg/dL (8.4-10.5); GFR AFRICAN-AMERICAN > 60; GFR NON-AFRICAN AMERICAN > 60
[2017-08-30] MEDS: cefTRIAXone 1 gm 1 GM/100 ML BAG IVPB SCH (09:40)
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
--- NOTE | 2017-08-30 13:17 | US ---
PROCEDURE: Ultrasound of the Kidneys HISTORY: uti, prior ureteral stent? COMPARISON: None available. TECHNIQUE: Sonogram of the kidneys. FINDINGS: RIGHT KIDNEY: Measures: 10.2 x 6.4 x 5.4 cm. Normal in size, contour and echogenicity. Severe hydronephrosis. A stent is seen LEFT KIDNEY: Measures: 11.46 x 5.39 x 4.83 cm. Normal in size, contour and echogenicity. No stone, solid mass lesion or hydronephrosis visualized. OTHER FINDINGS: None. IMPRESSION: Severe right-sided hydronephrosis
--- NOTE | 2017-08-31 09:16 | CARD ---
APPROVED REPORT EXAM: Two-dimensional and M-mode echocardiogram with Doppler and color Doppler. Other Information Quality : GoodRhythm : INDICATION POSSIBLE CVA 2D DIMENSIONS Left Atrium (2D)4.2 (1.6-4.0cm)IVSd1.0 (0.7-1.1cm) LVDd5.0 (3.9-5.9cm)PWd1.3 (0.7-1.1cm) LVDs3.5 (2.5-4.0cm)FS (%) 31.3 % LVEF (%)58.8 (>50%) M-Mode DIMENSIONS Aortic Root3.20 (2.2-3.7cm)Aortic Cusp Exc.1.90 (1.5-2.0cm) Aortic Valve AoV Peak Qwrqiiez735.0cm/Cali Peak GR.10mmHg Mitral Valve MV E Unkqbbbc45.3cm/sMV A Gsivijkr11.9cm/sE/A ratio1.2 TDI Lateral E' Peak V14.50cm/sMedial E' Peak V7.90cm/sE/Lateral E'6.6 E/Medial E'12.1 Pulmonary Valve PV Peak Mkjbowbq82.0cm/sPV Peak Grad.2mmHg Tricuspid Valve TR Peak Jiigytgs111na/sRAP [id number] Peak Gr.32mmHg [id number] LEFT VENTRICLE The left ventricle is normal size. There is normal left ventricular wall thickness. The left ventricular function is normal. The left ventricular ejection fraction is within the normal range. There is normal LV segmental wall motion. RIGHT VENTRICLE The right ventricle is normal size. ATRIA The left atrium size is normal. The right atrium size is normal. The interatrial septum is intact with no evidence for an atrial septal defect. AORTIC VALVE The aortic valve is normal in structure. There is trace aortic regurgitation. MITRAL VALVE The mitral valve is normal in structure. Mitral regurgitation is mild. TRICUSPID VALVE The tricuspid valve is normal in structure. There is mild tricuspid regurgitation. There is mild pulmonary hypertension. PULMONIC VALVE The pulmonary valve is normal in structure. There is trace pulmonic valvular regurgitation. GREAT VESSELS The aortic root is normal in size. PERICARDIAL EFFUSION There is no pericardial effusion. <Conclusion> The left ventricle is normal size. There is normal left ventricular wall thickness. The left ventricular function is normal. There is mild tricuspid regurgitation. There is mild pulmonary hypertension.
== END 2017-08-30 13:53 | disposition home or self-care (01) ==
LOC: ED 10:08 → ERH 15:43 → 3RSO 17:57
PROVIDERS: ADMIT Internal Medicine; ATTEND Internal Medicine
DX: G56.31 Lesion of radial nerve, right upper limb (principal); N39.0 Urinary tract infection, site not specified; J44.9 Chronic obstructive pulmonary disease, unspecified; F20.9 Schizophrenia, unspecified; F31.9 Bipolar disorder, unspecified; Z59.0 Homelessness; Z91.19 Patient's noncompliance with other medical treatment and regimen
CPT/HCPCS: 36415; 70450; 70551; 71045; 76770; 80053; 80061; 81001; 83036; 85025; 85610; 85730; 87086; 93005; 93306; 93880; 93970; 96365; 96366; 96372; 96375; 97161; 97530; 99285; G0378; G0480; G8979; G8980; J0696; J1644; J1885

== ENCOUNTER 2018-03-24 00:33 | Emergency (ER) | payer MEDICARE ==
[2018-03-24 00:35] VITALS: BMI 32.7
[2018-03-24 00:59] VITALS: BP 145/75; PULSE 70; RESP 18; TEMP 98.6; O2SAT 100
--- NOTE | 2018-03-24 01:31 | ED PDOC ---
Arrival/HPI - History of Present Illness Narrative History of Present Illness (Text): 03/24/18 01:25 62M with pmhx alcohol abuse, presents with a 3 year hx of penile pain and burning with urination that ascends to the bladder. Pt says nothing makes the pain better. Pt has not taken anything to alleviate the pain .Pt denies fevers, chills, chest pain, sob, nauseau vomiting. 03/24/18 06:33 Time/Duration: Other (3 years) Symptom Onset: Gradual Symptom Course: Unchanged Quality: Stabbing Severity Level: Severe <Ed Deleon - Last Filed: 03/24/18 06:33> <Jason Bentley - Last Filed: 03/24/18 06:46> - General Chief Complaint: Male Genitourinary Time Seen by Provider: 03/24/18 00:58 Past Medical History - Provider Review Nursing Documentation Reviewed: Yes - Infectious Disease Hx of Infectious Diseases: None - Tetanus Immunization Tetanus Immunization: Unknown - Cardiac Hx Hypertension: Yes - Pulmonary Hx Chronic Obstructive Pulmonary Disease (COPD): Yes - Neurological Hx Dementia: No - HEENT Hx HEENT Disorder: No Hx Cataracts: No Hx Deafness: No Hx Difficulty Chewing: No Hx Epistaxis: No Hx Glaucoma: No Hx Macular Degeneration: No - Renal Hx Renal Disorder: No Hx Kidney Stones: No - Endocrine/Metabolic Hx Hyperthyroidism: No Hx Hypothyroidism: No - Hematological/Oncological Hx Anemia: No Hx Sickle Cell Disease: No - Integumentary Hx Dermatological Disorder: No Hx Basal Cell Carcinoma: No Hx Madrigal: No Hx Cellulitis: No Hx Eczema: No Hx Melanoma: No Hx Psoriasis: No Hx Squamous Cell Carcinoma: No - Musculoskeletal/Rheumatological Hx Arthritis: Yes Hx Fractures: Yes (history) Hx Osteoporosis: No Hx Rheumatoid Arthritis: Yes - Gastrointestinal Hx Crohn's Disease: No Hx Diverticulitis: No Hx Gall Bladder Disease: No Hx Gastritis: No Hx Pancreatitis: No - Genitourinary/Gynecological Hx Sexually Transmitted Diseases: No - Psychiatric Hx Anxiety: Yes Hx Bipolar Disorder: Yes Hx Depression: Yes Hx Schizophrenia: Yes Hx Substance Use: Yes - Past Surgical History Past Surgical History: Unable to Obtain - Surgical History Hx Appendectomy: Yes Hx Carotid Endarterectomy: No Hx Cholecystectomy: No Hx Coronary Artery Bypass Graft: No Hx Coronary Stent: No - Anesthesia Hx Anesthesia: Yes Hx Anesthesia Reactions: No Hx Malignant Hyperthermia: No - Suicidal Assessment Feels Threatened In Home Enviroment: No <Ed Deleon - Last Filed: 03/24/18 06:33> Family/Social History - Physician Review Nursing Documentation Reviewed: Yes Family/Social History: Unknown Family HX Smoking Status: Current Some Days Smoker Hx Alcohol Use: Yes Hx Substance Use: Yes Substance used: heroine Hx Substance Use Treatment: Yes ([facility] 29 days 27 years ago) <Ed Deleon - Last Filed: 03/24/18 06:33> Allergies/Home Meds <Ed Deleon - Last Filed: 03/24/18 06:33> <Jason Bentley - Last Filed: 03/24/18 06:46> Allergies/Adverse Reactions: Allergies banana Allergy (Verified 08/28/17 10:18) ANAPHYLAXIS tea tree Allergy (Verified 08/28/17 10:18) ANAPHYLAXIS Home Medications: Home Meds Medication Instructions Recorded Confirmed Escitalopram [Lexapro] 10 mg PO DAILY 08/28/17 08/28/17 Gabapentin [Neurontin] 300 mg PO TID 08/28/17 08/28/17 Ibuprofen [Motrin Tab] 600 mg PO TID 08/28/17 08/28/17 Mirtazapine [Remeron] 15 mg PO HS 08/28/17 08/28/17 Olanzapine [Zyprexa] 5 mg PO DAILY 08/28/17 08/28/17 QUEtiapine [SEROquel] 50 mg PO BID 08/28/17 08/28/17 Tamsulosin [Flomax] 0.4 mg PO DAILY 08/28/17 08/28/17 Review of Systems - Physician Review All systems were reviewed & negative as marked: Yes - Review of Systems Constitutional: absent: Fevers Respiratory: absent: SOB Cardiovascular: absent: Chest Pain Gastrointestinal: Abdominal Pain (suprapubic) Genitourinary Male: Dysuria Musculoskeletal: absent: Back Pain <Ed Deleon - Last Filed: 03/24/18 06:33> Physical Exam Vital Signs Temp Pulse Resp BP Pulse Ox 03/24/18 00:44 98.6 F 70 18 145/75 100 Temperature: Afebrile Blood Pressure: Normal Pulse: Regular Respiratory Rate: Normal Appearance: Positive for: Unkept, Cachectic Pain Distress: Severe Mental Status: Positive for: Alert and Oriented X 3 - Systems Exam Head: Present: Atraumatic, Normocephalic Pupils: Present: PERRL. No: Sluggish Extroacular Muscles: Present: EOMI. No: Gaze Palsy Conjunctiva: Present: Normal. No: Injected Mouth: Present: Moist Mucous Membranes Pharnyx: No: ERYTHEMA, EXUDATE Respiratory/Chest: Present: Clear to Auscultation. No: Respiratory Distress Cardiovascular: Present: Regular Rate and Rhythm, Normal S1, S2. No: Murmurs Abdomen: No: Tenderness Genitourinary Male: Present: Normal External Genitalia. No: Lesions, Penile Discharge, Penile Swelling, Testicle Swelling Neurological: Present: GCS=15, CN II-XII Intact Skin: Present: Dry, Normal Color. No: Rashes Psychiatric: Present: Alert, Oriented x 3, Delusional. No: Normal Insight <Ed Deleon - Last Filed: 03/24/18 06:33> Vital Signs Temp Pulse Resp BP Pulse Ox 03/24/18 00:44 98.6 F 70 18 145/75 100 <Jason Bentley - Last Filed: 03/24/18 06:46> Medical Decision Making ED Course and Treatment: 03/24/18 04:02 Pt refusing to give urine sample Toradol 45 STAT IM 03/24/18 04:19 obtained urine f/u ua uds - Medication Orders Current Medication Orders: Ketorolac Tromethamine (Toradol) 45 mg IM STAT STA Stop: 03/24/18 01:24 <Ed Deleon - Last Filed: 03/24/18 06:33> ED Course and Treatment: Impression: Pt seen and evaluated with medical dir. Aware and agree with HPI, clinical findings, plan, and management. Pt, whose past medical history includes alcohol abuse, presented for penile pain and dysuria. Plan: -- Urinalysis -- Toradol -- Reassess and disposition - Medication Orders Current Medication Orders: Discontinued Medications Ketorolac Tromethamine (Toradol) 45 mg IM STAT STA Stop: 03/24/18 01:24 Last Admin: 03/24/18 01:51 Dose: 45 mg MAR Pain Assessment Document 03/24/18 01:51 SS (Rec: 03/24/18 01:51 SS [facility] [id number]) Pain Reassessment Is this a pain reassessment? No Sleep Is patient sleeping during reassessment? No Presence of Pain Presence of Pain Yes IM Administration Charges Document 03/24/18 01:51 SS (Rec: 03/24/18 01:51 SS [facility] [id number]) Injection Site MAR Injection Site Right Deltoid Charges for Administration # of IM Administrations 1 <Jason Bentley - Last Filed: 03/24/18 06:46> - PA / [employer] SPECIALIST / Resident Statement / has reviewed & agrees with the documentation as recorded. / has examined the patient and agrees with the treatment plan. <Jason Bentley - Last Filed: 03/24/18 06:46> Disposition/Present on Arrival - Present on Arrival Any Indicators Present on Arrival: No History of DVT/PE: No History of Uncontrolled Diabetes: No Urinary Catheter: No History of Decub. Ulcer: No History Surgical Site Infection Following: None - Disposition Have Diagnosis and Disposition been Completed?: Yes Disposition Time: 06:34 Patient Plan: Discharge <Ed Deleon - Last Filed: 03/24/18 06:33> <Jason Bentley - Last Filed: 03/24/18 06:46> - Disposition Diagnosis: UTI (urinary tract infection) Patient Problems: Current Active Problems Problem Status Onset UTI (urinary tract infection) Acute Condition: GOOD Discharge Instructions (ExitCare): Urinary Tract Infection, Adult (DC) Additional Instructions: FRANSISCO CROUCH, thank you for letting us take care of you today. Your provider was Jason Bentley MD and you were treated for PAIN IN MALE GENITALIA. The emergency medical care you received today was directed at your acute symptoms. If you were prescribed any medication, please fill it and take as directed. It may take several days for your symptoms to resolve. Return to the Emergency Department if your symptoms worsen, do not improve, or if you have any other problems. Please contact your doctor or call one of the physicians/clinics you have been referred to that are listed on the Patient Visit Information form that is included in your discharge packet. Bring any paperwork you were given at discharge with you along with any medications you are taking to your follow up visit. Our treatment cannot replace ongoing medical care by a primary care provider outside of the emergency department. Thank you for allowing the [facility] team to be part of your care today. If you had an X-Ray or CT scan: A Radiologist will review the ED reading if any change in treatment is needed we will contact you. If you had a blood, urine, or wound culture: It will take several days for the results, if any change in treatment is needed we will contact you. If you had an STI test: It will take 48 hours for the results. Please call after 1 week if you have not heard back. Prescriptions: Cephalexin [Keflex] 500 mg PO BID #20 capsule Referrals: Wanda Arroyo MD [Medical Doctor] - Follow up with primary Forms: [employer] (Serbian)
[2018-03-24 05:30] LABS: URINE BILIRUBIN NEGATIVE (NEGATIVE); URINE BLOOD LARGE (NEGATIVE); URINE GLUCOSE (UA) NEGATIVE (NEGATIVE); URINE LEUKOCYTE ESTERASE MODERATE Leu/uL (NEGATIVE); URINE PROTEIN 100 mg/dL (<30 mg/dL)
[2018-03-24 05:33] LABS: URINE APPEARANCE SL CLOUDY (CLEAR); URINE COLOR YELLOW (YELLOW)
[2018-03-24 05:55] LABS: URINE EPITHELIAL CELLS 0 - 2 /hpf (0-5); URINE RBC 25 - 30 /hpf (0-2); URINE WBC 25 - 30 /hpf (0-6)
[2018-03-24 05:56] LABS: URINE BACTERIA TRACE /hpf
== END 2018-03-24 06:50 | disposition home or self-care (01) ==
LOC: ED 00:33
DX: N39.0 Urinary tract infection, site not specified (principal); I10 Essential (primary) hypertension; F20.9 Schizophrenia, unspecified; M06.9 Rheumatoid arthritis, unspecified
CPT/HCPCS: 81001; 96372; 99283; J1885